=== PATIENT | female | born 1995 | race Caucasian/White ===

== ENCOUNTER 2021-01-03 09:50 | Emergency (ER) | payer MEDICAID, SELFPAY ==
[2021-01-03 09:57] VITALS: BP 117/66; PULSE 92; RESP 14; TEMP 36.9; O2SAT 100
--- NOTE | 2021-01-03 10:45 | ED.URI ---
HPI - URI/Sore Throat General Chief Complaint: Upper Respiratory Infection Stated Complaint: sore throat Source: patient Mode of arrival: ambulatory Limitations: no limitations History of Present Illness HPI Narrative: Patient is a 25-year-old female who presents complaining of sore throat x1 day. She denies fever, cough or congestion. She has not vaccinated Covid at this time. Patient denies known exposure to Covid. She denies taking any [id number] medications prior to arrival. MD elicited complaint: sore throat Related Data Home Medications Medication Instructions Recorded Confirmed No Home Medications 01/03/21 01/03/21 Allergies Allergy/AdvReac Type Severity Reaction Status Date / Time No Known Allergies Allergy Unverified 01/03/21 10:11 Review of Systems Review of Systems: CONSTITUTIONAL: Denies fever, chills, or sweats. EYES: Denies visual changes, redness, or discharge. ENT: Denies rhinorrhea, congestion, or otalgia. Reports sore throat. CARDIOVASCULAR: Denies chest pain, palpitations, or edema. RESPIRATORY: Denies cough or dyspnea. GASTROINTESTINAL: Denies abdominal pain, nausea, vomiting, or diarrhea. GENITOURINARY: Denies dysuria or hematuria. SKIN: Denies rash or itching. MUSCULOSKELETAL: Denies back pain, joint pain, or myalgia. NEUROLOGIC: Denies headache, numbness, dizziness, or weakness. PSYCHIATRIC: Denies anxiety or depression. [facility] Past Medical History Medical History Strep throat Surgical History Surgical History Hx of tonsillectomy Social History Social History (Updated 01/03/21 @ 10:47 by KASH Cody) Smoking status: Never smoker Alcohol intake: never Substance use: never Occupation/Education: occupation Comments At the time of signature, I have reviewed and agree with nursing past medical, surgical, social, and family history unless otherwise noted. Please see nursing chart for further information. There is no relevant family history pertinent to the presenting complaint. Exam Narrative: GENERAL: Well-appearing, well-nourished, and in no acute distress. HEAD: Normocephalic, atraumatic. EYES: EOMI. No redness or drainage. Conjunctiva are normal. ENT: Mucous membranes pink and moist. Nares clear. No rhinorrhea. Throat normal with moderate erythema and edema. Uvula midline. NECK: AROM. Supple. No lymphadenopathy. CHEST: No respiratory distress. HEART: Regular rate and rhythm. EXTREMITIES: Normal range of motion. SKIN: Warm, dry, no rash. NEURO: No focal deficits. Alert and oriented x3. Gait steady. PSYCH: Normal affect. No signs of depression or anxiety. Course Vital Signs Vital signs: Vital Signs Temperature 36.9 C 01/03/21 09:57 Pulse Rate 92 01/03/21 09:57 Respiratory Rate 14 01/03/21 09:57 Blood Pressure 117/66 01/03/21 09:57 Pulse Oximetry 100 01/03/21 09:57 Temperature 36.9 C 01/03/21 09:57 Pulse Rate 92 01/03/21 09:57 Respiratory Rate 14 01/03/21 09:57 Blood Pressure 117/66 01/03/21 09:57 Pulse Oximetry 100 01/03/21 09:57 Reviewed MDM - URI/Sore Throat MDM Narrative Medical decision making narrative: Patient's rapid strep is negative at this time. Covid PCR sent. Patient is aware that she should quarantine until return of results. Patient agrees with plan of care. Patient is stable for discharge to home with outpatient follow-up as discussed. Differential Diagnosis Differential diagnosis: Likely upper respiratory infection, sinusitis, viral infection, pharyngitis and other (Covid) Lab Data Attestation: I reviewed the patient's lab results. Labs: Strep Screen Presumptive Negative *(Reference Range: Negative)* Critical Care Time Critical Care Time Critical Care Time: No Discharge Plan Discharge Clinical Impres
[2021-01-05 18:23] LABS: SARS-CoV-2 RNA PCR Negative
== END 2021-01-03 11:00 | disposition home or self-care (01) ==
PROVIDERS: Emergency Provider Nurse Practitioner
DX: J02.9 Acute pharyngitis, unspecified (principal); Z20.822 Contact with and (suspected) exposure to COVID-19
CPT/HCPCS: 87081; 87880; 99203; C9803; G0463; U0003; U0005

== ENCOUNTER 2021-02-06 11:08 | Emergency (ER) | payer BC, SELFPAY ==
[2021-02-06 11:15] VITALS: BP 119/66; PULSE 93; RESP 16; TEMP 36.5; O2SAT 99
--- NOTE | 2021-02-06 11:19 | ED.URI ---
HPI - URI/Sore Throat General Chief Complaint: Upper Respiratory Infection Stated Complaint: cough congestion ear pain Time Seen by Provider: 02/06/21 11:19 Source: patient and RN notes reviewed History of Present Illness HPI Narrative: Patient is a 25-year-old female who presents the urgent care with complaints of runny nose, slight cough, sore throat and fatigue. Patient states her symptoms started 3 days ago and everyone in the home has been sick . Patient states that no one has been diagnosed with Covid. States that she has not had the Covid vaccine. Patient's main concern was not going to work today . Patient denies of fever, chills, nausea, vomiting, headache. Patient has had normal appetite. Patient has not tested for Covid since her sickness started. No other acute complaints. No acute distress noted. Patient aware of the plan of care. Some parts of this dictation were generated by voice recognition software and may contain typographical and/or grammatical inaccuracies. Related Data Home Medications Medication Instructions Recorded Confirmed etonogestrel [Nexplanon] 1 implant SUBDERMAL ONCE 02/06/21 02/06/21 Allergies Allergy/AdvReac Type Severity Reaction Status Date / Time No Known Allergies Allergy Verified 02/06/21 11:36 Review of Systems Review of Systems: CONSTITUTIONAL: Denies fever, chills, or sweats. EYES: Denies visual changes, redness, or discharge. ENT: Reports of postnasal drainage, congestion, sore throat and rhinorrhea CARDIOVASCULAR: Denies chest pain, palpitations, or edema. RESPIRATORY: Reports a mild cough without dyspnea GASTROINTESTINAL: Denies abdominal pain, nausea, vomiting, or diarrhea. GENITOURINARY: Denies dysuria or hematuria. SKIN: Denies rash or itching. MUSCULOSKELETAL: Denies back pain, joint pain, or myalgia. NEUROLOGIC: Denies headache, numbness, or weakness. All other systems reviewed are negative, except as documented in HPI. [facility] Past Medical History Medical History Strep throat Surgical History Surgical History Hx of tonsillectomy Social History Social History (Updated 01/03/21 @ 10:47 by Latasha M. Keen, [employer]) Smoking status: Never smoker Alcohol intake: never Substance use: never Comments At the time of my signature, I reviewed and agree with the nursing past medical, surgical, social, and family history. There is no relevant family history pertinent to the patient complaint. Exam Narrative: GENERAL: This is a well-nourished, well-developed patient, in no apparent distress. HEAD: normocephalic, atraumatic. EYES: PERRL. Sclera clear/white. Vision is grossly intact. EARS: External ears normal, auditory canals clear and without drainage, TMs normal without perforation. Hearing grossly intact. NOSE: External nose normal with no obvious nasal discharge, nares without redness, clear to yellow rhinorrhea. THROAT: Mucous membranes moist. Mild erythema to posterior pharynx with moderate postnasal drainage NECK: Neck supple CARDIOVASCULAR: Regular rate and rhythm without murmurs, gallops, or rubs. RESPIRATORY: Clear to auscultation. Breath sounds equal bilaterally. No wheezes, rales, or rhonchi. SKIN: warm, intact with no suspicious lesions or rash, good texture and turgor. NEURO: awake, alert, and oriented to person, place and time. There were no obvious focal neurologic abnormalities. EXTREMITIES: No clubbing, cyanosis, or edema. Course Vital Signs Vital signs: Vital Signs Temperature 97.7 F 02/06/21 11:15 Pulse Rate 93 02/06/21 11:15 Respiratory Rate 16 02/06/21 11:15 Blood Pressure 119/66 02/06/21 11:15 Pulse Oximetry 99 02/06/21 11:15 Temperature 97.7 F 02/06/21 11:15 Pulse Rate 93 02/06/21 11:15 Respiratory Rate 16 02/06/21 11:15 Blood Pressure 119/66 02/06/21 11:15 Pulse Oximetry 99 02/06/21
== END 2021-02-06 11:43 | disposition home or self-care (01) ==
PROVIDERS: Emergency Provider Nurse Practitioner Family
DX: J06.9 Acute upper respiratory infection, unspecified (principal)
CPT/HCPCS: 87081; 87804; 87880; 99213; G0463

== ENCOUNTER 2021-05-27 15:28 | Emergency (ER) | payer BC, SELFPAY ==
[2021-05-27 15:33] VITALS: BP 117/66; PULSE 78; RESP 20; TEMP 36.9; O2SAT 100
--- NOTE | 2021-05-27 16:03 | ED.URI ---
HPI - URI/Sore Throat General Chief Complaint: Upper Respiratory Infection Stated Complaint: Cough/Congestion Time Seen by Provider: 05/27/21 15:53 Source: patient and RN notes reviewed Mode of arrival: ambulatory Limitations: no limitations History of Present Illness HPI Narrative: Patient presents today complaint of a 2-week history of nonproductive cough, worse over the last 2 days. Patient reports very occasional clear sputum. Your reports some chest congestion as well, but denies any additional symptoms. Denies any sick contacts. She has been taking Mucinex and DayQuil without relief. MD elicited complaint: cough Related Data Home Medications Medication Instructions Recorded Confirmed etonogestrel [Nexplanon] 1 implant SUBDERMAL ONCE 02/06/21 05/27/21 Allergies Allergy/AdvReac Type Severity Reaction Status Date / Time No Known Allergies Allergy Verified 05/27/21 15:32 Review of Systems Review of Systems: CONSTITUTIONAL: Denies body aches, fever, chills, or sweats. EYES: Denies visual changes, redness, or discharge. ENT: Denies rhinorrhea, congestion, sore throat, or otalgia. CARDIOVASCULAR: Denies chest pain, palpitations, or edema. RESPIRATORY: Denies dyspnea.+ Cough, chest congestion GASTROINTESTINAL: Denies abdominal pain, nausea, vomiting, or diarrhea. GENITOURINARY: Denies dysuria or hematuria. SKIN: Denies rash, itching, or wounds. MUSCULOSKELETAL: Denies back pain, joint pain, or myalgia. NEUROLOGIC: Denies headache, numbness, tingling, or weakness. PSYCH: Denies depression or anxiety. [facility] Past Medical History Medical History Strep throat Surgical History Surgical History Hx of tonsillectomy Social History Social History Smoking status: Never smoker Alcohol intake: never Substance use: never Comments At time of signature, I have reviewed and agree with nursing past medical, surgical, social and family history unless otherwise noted. Please see nursing chart for further information. There is no relevant family history pertinent to the presenting complaint Exam Narrative: GENERAL: Well-appearing, well-nourished, and in no acute distress. HEAD: Normocephalic, atraumatic. EYES: EOMI. No redness or drainage. Conjunctivae normal. ENT: Mucous membranes pink and moist. Nares clear. No rhinorrhea. TMs normal bilaterally. Throat normal. Uvula midline. NECK: Normal AROM. Supple. No lymphadenopathy. CHEST: No respiratory distress. Clear to auscultation. HEART: Regular rate and rhythm. No murmur appreciated. Normal peripheral pulses. EXTREMITIES: Normal range of motion. No edema. SKIN: Warm, dry, no rash. Capillary refill normal. Normal skin turgor. NEURO: No focal deficits. Alert and oriented x3. Gait steady. PSYCH: Normal affect. No signs of depression or anxiety. Course Course Level of Care: Express Care Visit Vital Signs Vital signs: Vital Signs Temperature 98.5 F 05/27/21 15:33 Pulse Rate 78 05/27/21 15:33 Respiratory Rate 20 05/27/21 15:33 Blood Pressure 117/66 05/27/21 15:33 Pulse Oximetry 100 05/27/21 15:33 Temperature 98.5 F 05/27/21 15:33 Pulse Rate 78 05/27/21 15:33 Respiratory Rate 20 05/27/21 15:33 Blood Pressure 117/66 05/27/21 15:33 Pulse Oximetry 100 05/27/21 15:33 Reviewed MDM - URI/Sore Throat Differential Diagnosis Differential diagnosis: Likely upper respiratory infection, viral infection, bronchitis and other (Pneumonia) Critical Care Time Critical Care Time Critical Care Time: No Discharge Plan Discharge Clinical Impression: Bronchitis Patient Disposition: Home, Self-Care Condition: Stable Instructions: Acute Bronchitis (ED) Additional Instructions: Please take all medications as prescribed. Do not drive with
== END 2021-05-27 16:10 | disposition home or self-care (01) ==
PROVIDERS: Emergency Provider Nurse Practitioner
DX: J40 Bronchitis, not specified as acute or chronic (principal)
CPT/HCPCS: 99213; G0463

== ENCOUNTER 2021-11-23 09:01 | Emergency (ER) | payer BC, SELFPAY ==
[2021-11-23 09:06] VITALS: BP 106/71; PULSE 72; RESP 20; TEMP 36.7; O2SAT 99
--- NOTE | 2021-11-23 09:34 | ED.URI ---
HPI - URI/Sore Throat General Chief Complaint: Upper Respiratory Infection Stated Complaint: Sore Throat Time Seen by Provider: 11/23/21 09:35 History of Present Illness HPI Narrative: 26-year-old female presented for complaint of sore throat for 4 days. Endorses post nasal drainage and throat pain on the left side. Also endorses a left ear has been draining. She denies decreased hearing, tinnitus, headache, nausea, vomiting, fevers or chills. She endorses she lives with her aunt who has been ill for a few days. She has not taken anything for symptoms. Related Data Allergies Allergy/AdvReac Type Severity Reaction Status Date / Time No Known Allergies Allergy Verified 11/23/21 09:23 Review of Systems Review of Systems: CONSTITUTIONAL: Denies body aches, fever, chills, or sweats. EYES: Denies visual changes, redness, or discharge. ENT: reports rhinorrhea, congestion, sore throat, ear draining CARDIOVASCULAR: Denies chest pain, palpitations, or edema. RESPIRATORY: Denies dyspnea. GASTROINTESTINAL: Denies abdominal pain, nausea, vomiting, or diarrhea. SKIN: Denies rash, itching, or wounds. MUSCULOSKELETAL: Denies back pain, joint pain, or myalgia. NEUROLOGIC: Denies headache [facility] Past Medical History Medical History Strep throat Surgical History Surgical History Hx of tonsillectomy Social History Social History Smoking status: Never smoker Alcohol intake: never Substance use: never Exam Narrative: GENERAL: well-appearing, no acute distress. EYES: conjunctivae clear ENT: Mucous membranes moist. TM pearly burton with normal light reflex bilaterally; no tragal tenderness. Oropharynx erythematous without lesions. No drooling, no hoarseness, no trismus, uvula midline. No tripod positioning, hot potato voice, or soft palate swelling. NECK: Supple. No lymphadenopathy CHEST: Clear to auscultation, breath sounds equal. HEART: Regular rate and rhythm. No murmur heard. SKIN: Warm, dry, no rash. NEURO: Alert and oriented x3. Course Course Emergency Course: Patient is aware of diagnosis, understands and agrees to treatment plan. Anticipatory guidance given. Patient agrees to follow-up as directed and is aware of reasons to seek care at the emergency department. Portions of this record may have been created with voice recognition software Level of Care: Express Care Visit Vital Signs Vital signs: Vital Signs Temperature 98.1 F 11/23/21 09:06 Pulse Rate 72 11/23/21 09:06 Respiratory Rate 20 11/23/21 09:06 Blood Pressure 106/71 11/23/21 09:06 Pulse Oximetry 99 11/23/21 09:06 Oxygen Delivery Room Air 11/23/21 09:06 Temperature 98.1 F 11/23/21 09:06 Pulse Rate 72 11/23/21 09:06 Respiratory Rate 20 11/23/21 09:06 Blood Pressure 106/71 11/23/21 09:06 Pulse Oximetry 99 11/23/21 09:06 Oxygen Delivery Room Air 11/23/21 09:06 MDM - URI/Sore Throat MDM Narrative Medical decision making narrative: strep result reviewed with pt. Advise supportive treatments. Patient is appropriate for outpatient treatment and follow-up. Differential Diagnosis Differential diagnosis: Likely upper respiratory infection, viral infection and pharyngitis Lab Data Labs: Strep Screen Presumptive Negative *(Reference Range: Negative)* Strep Screen Presumptive Negative *(Reference Range: Negative)* Discharge Plan Discharge Clinical Impression: Pharyngitis Patient Disposition: Home, Self-Care Condition: Stable Instructions: Allergic Rhinitis (ED) Additional Instructions: Rapid strep swab was negative today You will be notified in a few days if the culture comes back positive for strep, a
== END 2021-11-23 09:45 | disposition home or self-care (01) ==
PROVIDERS: Emergency Provider Nurse Practitioner Family
DX: J02.9 Acute pharyngitis, unspecified (principal)
CPT/HCPCS: 87081; 87880; 99213; G0463

== ENCOUNTER 2022-01-21 11:14 | Emergency (ER) | payer OTHER, SELFPAY ==
[2022-01-21 11:21] VITALS: BP 127/65; PULSE 79; RESP 16; TEMP 36.5; O2SAT 99
--- NOTE | 2022-01-21 11:25 | ED.URI ---
HPI - URI/Sore Throat General Chief Complaint: Ear Stated Complaint: Sore Throat/Ear Pain Time Seen by Provider: 01/21/22 11:26 Source: patient and RN notes reviewed History of Present Illness HPI Narrative: patient is a 26-year-old female who presents to the Urgent Care with complaints of scratchy throat, bilateral ear pain and nasal drainage. Patient has been taking Mucinex for 2 days without much relief. Patient was seen approximately 1 month ago and states that she did not take the Zyrtec. Denies any fevers, nausea or vomiting. No other acute complaints. No acute distress noted. Patient aware of the plan of care. Some parts of this dictation were generated by voice recognition software and may contain typographical and/or grammatical inaccuracies. Related Data Allergies Allergy/AdvReac Type Severity Reaction Status Date / Time No Known Allergies Allergy Verified 11/23/21 09:23 Review of Systems Review of Systems: CONSTITUTIONAL: Denies fever, chills, or sweats. EYES: Denies visual changes, redness, or discharge. ENT: Reports a scratchy throat, nasal drainage in bilateral otalgia CARDIOVASCULAR: Denies chest pain, palpitations, or edema. RESPIRATORY: Denies cough or dyspnea. GASTROINTESTINAL: Denies abdominal pain, nausea, vomiting, or diarrhea. GENITOURINARY: Denies dysuria or hematuria. SKIN: Denies rash or itching. MUSCULOSKELETAL: Denies back pain, joint pain, or myalgia. NEUROLOGIC: Denies headache, numbness, or weakness. All other systems reviewed are negative, except as documented in HPI. [facility] Past Medical History Medical History Strep throat Surgical History Surgical History Hx of tonsillectomy Social History Social History Smoking status: Never smoker Alcohol intake: never Substance use: never Comments At the time of my signature, I reviewed and agree with the nursing past medical, surgical, social, and family history. There is no relevant family history pertinent to the patient complaint. Exam Narrative: GENERAL: This is a well-nourished, well-developed patient, in no apparent distress. HEAD: normocephalic, atraumatic. EYES: PERRL. Sclera clear/white. Vision is grossly intact. EARS: External ears normal, auditory canals clear and without drainage, TMs normal without perforation. Hearing grossly intact. NOSE: External nose normal with no obvious nasal discharge, nares without redness, clear rhinorrhea. THROAT: Mucous membranes moist, posterior pharynx clear. mild postnasal drainage NECK: Neck supple, non-tender without lymphadenopathy CARDIOVASCULAR: Regular rate and rhythm without murmurs, gallops, or rubs. RESPIRATORY: Clear to auscultation. Breath sounds equal bilaterally. No wheezes, rales, or rhonchi. SKIN: warm, intact with no suspicious lesions or rash, good texture and turgor. NEURO: awake, alert, and oriented to person, place and time. There were no obvious focal neurologic abnormalities. EXTREMITIES: No clubbing, cyanosis, or edema. Course Course Level of Care: Express Care Visit Vital Signs Vital signs: Vital Signs Temperature 97.7 F 01/21/22 11:21 Pulse Rate 79 01/21/22 11:21 Respiratory Rate 16 01/21/22 11:21 Blood Pressure 127/65 01/21/22 11:21 Pulse Oximetry 99 01/21/22 11:21 Oxygen Delivery Room Air 01/21/22 11:21 Temperature 97.7 F 01/21/22 11:21 Pulse Rate 79 01/21/22 11:21 Respiratory Rate 16 01/21/22 11:21 Blood Pressure 127/65 01/21/22 11:21 Pulse Oximetry 99 01/21/22 11:21 Oxygen Delivery Room Air 01/21/22 11:21 reviewed MDM - URI/Sore Throat MDM Narrative Medical decision making narrative: advised patient to take a daily antihistamine such as Zyrtec. Use Flonase and Benadryl prior to bedtime. Use a humidifier at bedtime. Increase wa
== END 2022-01-21 11:54 | disposition home or self-care (01) ==
PROVIDERS: Emergency Provider Nurse Practitioner Family
DX: H92.03 Otalgia, bilateral (principal)
CPT/HCPCS: 99213; G0463

== ENCOUNTER 2022-07-08 15:26 | Emergency (ER) | payer OTHER, SELFPAY ==
[2022-07-08 15:30] VITALS: BP 130/78; PULSE 102; RESP 16; TEMP 36.6; O2SAT 99
--- NOTE | 2022-07-08 15:35 | ED.URI ---
HPI - URI/Sore Throat General Chief Complaint: Upper Respiratory Infection Stated Complaint: Shortness of Breath Time Seen by Provider: 07/08/22 15:30 Source: patient History of Present Illness HPI Narrative: Patient is a 26-year-old female presents to urgent care with complaints of nasal congestion, body aches and cough. Patient states that she has a history of bronchitis. She has been using Benadryl and congestion medication for the last 2 days. Denies any fever, nausea or vomiting. No other acute complaints. No acute distress noted. Patient aware of the plan of care. Some parts of this dictation were generated by voice recognition software and may contain typographical and/or grammatical inaccuracies. Related Data Allergies Allergy/AdvReac Type Severity Reaction Status Date / Time No Known Allergies Allergy Verified 07/08/22 15:33 Review of Systems Review of Systems: CONSTITUTIONAL: Denies fever, chills, or sweats. EYES: Denies visual changes, redness, or discharge. ENT: Reports postnasal drainage, nasal congestion CARDIOVASCULAR: Denies chest pain, palpitations, or edema. RESPIRATORY: Reports of cough GASTROINTESTINAL: Denies abdominal pain, nausea, vomiting, or diarrhea. GENITOURINARY: Denies dysuria or hematuria. SKIN: Denies rash or itching. MUSCULOSKELETAL: Denies back pain, joint pain. Reports body aches NEUROLOGIC: Denies headache, numbness, or weakness. All other systems reviewed are negative, except as documented in HPI. [facility] Past Medical History Medical History Strep throat Surgical History Surgical History Hx of tonsillectomy Social History Social History Smoking status: Never smoker Alcohol intake: never Substance use: never Occupation/Education: occupation Comments At the time of my signature, I reviewed and agree with the nursing past medical, surgical, social, and family history. There is no relevant family history pertinent to the patient complaint. Exam Narrative: GENERAL: This is a well-nourished, well-developed patient, in no apparent distress. HEAD: normocephalic, atraumatic. EYES: PERRL. Sclera clear/white. Vision is grossly intact. EARS: External ears normal, auditory canals clear and without drainage, TMs normal without perforation. Hearing grossly intact. NOSE: External nose normal with no obvious nasal discharge, nares without redness, clear rhinorrhea. THROAT: Mucous membranes moist, posterior pharynx clear. Postnasal drainage NECK: Neck supple, non-tender without lymphadenopathy CARDIOVASCULAR: Regular rate and rhythm without murmurs, gallops, or rubs. RESPIRATORY: Clear to auscultation. Breath sounds equal bilaterally. No wheezes, rales, or rhonchi. SKIN: warm, intact with no suspicious lesions or rash, good texture and turgor. NEURO: awake, alert, and oriented to person, place and time. There were no obvious focal neurologic abnormalities. EXTREMITIES: No clubbing, cyanosis, or edema. Course Course Level of Care: Express Care Visit Vital Signs Vital signs: Vital Signs Temperature 97.8 F 07/08/22 15:30 Pulse Rate 102 H 07/08/22 15:30 Respiratory Rate 16 07/08/22 15:30 Blood Pressure 130/78 07/08/22 15:30 Pulse Oximetry 99 07/08/22 15:30 Oxygen Delivery Room Air 07/08/22 15:30 Temperature 97.8 F 07/08/22 15:30 Pulse Rate 102 H 07/08/22 15:30 Respiratory Rate 16 07/08/22 15:30 Blood Pressure 130/78 07/08/22 15:30 Pulse Oximetry 99 07/08/22 15:30 Oxygen Delivery Room Air 07/08/22 15:30 Reviewed MDM - URI/Sore Throat MDM Narrative Medical decision making narrative: Advised patient to continue [id number] allergy medication in conjunction with Mucinex and a prescription steroid. Be sure to eat and drink with medication. Do not sl
== END 2022-07-08 16:07 | disposition home or self-care (01) ==
PROVIDERS: Emergency Provider Nurse Practitioner Family; PCP Family Medicine
DX: J06.9 Acute upper respiratory infection, unspecified (principal)
CPT/HCPCS: 99213; G0463

== ENCOUNTER 2022-10-18 12:40 | Emergency (ER) | payer OTHER, SELFPAY ==
--- NOTE | 2022-10-18 12:45 | ED.URI ---
HPI - URI/Sore Throat General Chief Complaint: Upper Respiratory Infection Stated Complaint: Congestion/Cough Source: patient and RN notes reviewed History of Present Illness HPI Narrative: 27-year-old female presents to urgent care with daughter at side. Patient states she has had a cough and congestion for 4 days. Denies any fevers, chills, chest pain, shortness of breath, vomiting, or diarrhea. Denies any sore throat or ear pain. Patient has taken an allergy pill at home. Related Data Home Medications Medication Instructions Recorded Confirmed norgestimate 0.25 mg-ethinyl 1 tablet PO DAILY 10/18/22 10/18/22 estradiol 35 mcg tablet (Estarylla) Allergies Allergy/AdvReac Type Severity Reaction Status Date / Time No Known Allergies Allergy Verified 07/08/22 15:33 Review of Systems Review of Systems: Pertinent positives and pertinent negatives per HPI. [facility] Past Medical History Medical History Strep throat Surgical History Surgical History Hx of tonsillectomy Social History Social History Smoking status: Never smoker Alcohol intake: never Substance use: never Occupation/Education: occupation Comments At the time of my signature, I reviewed and agree with the nursing past medical, surgical, social, and family history. There is no relevant family history pertinent to the patient complaint. Exam Narrative: GENERAL: This is a well-nourished, well-developed patient, in no apparent distress. HEAD: normocephalic, atraumatic. EYES: Sclera clear/white. Vision is grossly intact. EARS: External ears normal, auditory canals clear and without drainage. Hearing grossly intact. NOSE: External nose normal with no obvious nasal discharge, nares without redness, no rhinorrhea. THROAT: Mucous membranes moist, posterior pharynx clear. NECK: Neck supple, non-tender without lymphadenopathy, masses or thyromegaly. CARDIOVASCULAR: Regular rate and rhythm without murmurs, gallops, or rubs. RESPIRATORY: Clear to auscultation. Breath sounds equal bilaterally. No wheezes, rales, or rhonchi. GASTROINTESTINAL: Abdomen soft, non-tender, nondistended. Bowel sounds are active. No hepato-splenomegaly, or palpable masses. No guarding. SKIN: warm, intact with no suspicious lesions or rash, good texture and turgor. NEURO: awake, alert, and oriented to person, place and time. There were no obvious focal neurologic abnormalities. EXTREMITIES: No clubbing, cyanosis, or edema. No joint tenderness, effusion, or edema noted. BACK: Nontender without deformity or crepitus. No flank tenderness. Course Course Level of Care: Express Care Visit Vital Signs Vital signs: Vital Signs Temperature 97.7 F 10/18/22 12:46 Pulse Rate 81 10/18/22 12:46 Respiratory Rate 16 10/18/22 12:46 Blood Pressure 114/65 10/18/22 12:46 Pulse Oximetry 99 10/18/22 12:46 Oxygen Delivery Room Air 10/18/22 12:46 Temperature 97.7 F 10/18/22 12:46 Pulse Rate 81 10/18/22 12:46 Respiratory Rate 16 10/18/22 12:46 Blood Pressure 114/65 10/18/22 12:46 Pulse Oximetry 99 10/18/22 12:46 Oxygen Delivery Room Air 10/18/22 12:46 Reviewed MDM - URI/Sore Throat MDM Narrative Medical decision making narrative: Viral illness may last between 7-12days; antibiotic is NOT recommended at this time. Recommend antihistamine such as Benadryl at night time and Claritin/Zyrtec/Rochelle during the day. Increase your Vitamin C intake. Warm baths are comforting for children. Steam from hot showers help with congestion. Cough syrup may cause drowsiness; avoid driving or take it at night time. Suction nose frequently if child is congested. May use saline nasal spray before suctioning to help with results. Use inhaler as needed for cough, wheezing, shortness o
[2022-10-18 12:46] VITALS: BP 114/65; PULSE 81; RESP 16; TEMP 36.5; O2SAT 99
== END 2022-10-18 13:05 | disposition home or self-care (01) ==
PROVIDERS: Emergency Provider Nurse Practitioner Family; PCP Family Medicine
DX: J06.9 Acute upper respiratory infection, unspecified (principal)
CPT/HCPCS: 99213; G0463

== ENCOUNTER 2023-04-06 11:56 | Emergency (ER) | payer OTHER, SELFPAY ==
[2023-04-06 12:05] VITALS: BP 126/62; PULSE 75; RESP 16; TEMP 36.7; O2SAT 100
--- NOTE | 2023-04-06 12:45 | ED.GENADULT ---
HPI - General Adult General Chief complaint: Upper Respiratory Infection Stated complaint: cough Source: patient, RN notes reviewed and old records reviewed Mode of arrival: ambulatory Limitations: no limitations History of Present Illness HPI narrative: 27-year-old female presents to [facility] with complaints of cough, congestion that started 2 weeks ago. Patient states cough is getting worse. Patient states she is having shortness of breath at night. Patient taking [id number] medications with no relief. Patient denies chest pain, dizziness, weakness. Related Data Home Medications Medication Instructions Recorded Confirmed norgestimate 0.25 mg-ethinyl 1 tablet PO DAILY 10/18/22 10/18/22 estradiol 35 mcg tablet (Estarylla) Allergies Allergy/AdvReac Type Severity Reaction Status Date / Time No Known Allergies Allergy Verified 04/06/23 12:40 Review of Systems Constitutional: Constitutional: Reports no additional constitutional complaints, Denies body ache(s), Denies chills, Denies fatigue, Denies fever(s) and Denies headache(s) Eyes: Eyes: Reports no additional eye complaints and Denies blurry vision ENT: Reports system reviewed and no additional complaints, except as documented, Denies vertigo, Denies dizziness, Denies ear discharge, Denies otalgia, Denies facial pain, Denies headache(s), Reports nasal congestion, Denies nasal discharge, Denies sinus pain, Denies sinus pressure and Denies sore throat Cardiovascular: Cardiovascular: Reports no additional cardiovascular complaints, Denies chest pain, Denies chest pain at rest, Denies rapid heart rate and Denies dyspnea Respiratory: Respiratory: Reports no additional respiratory complaints, Reports chest congestion, Reports cough, Denies pain on inspiration, Denies pain with cough and Reports dyspnea Gastrointestinal: Gastrointestinal: Denies abdominal pain, Denies diarrhea, Denies nausea and Denies vomiting Integumentary/Breasts: Skin/Breast: Denies rash Neurologic: Reports system reviewed and no additional complaints, except as documented, Denies vertigo, Denies dizziness and Denies headache(s) Endocrine: Endocrine: Denies fatigue PMFSH Past Medical History Medical History Strep throat Surgical History Surgical History Hx of tonsillectomy Social History Social History Smoking status: Never smoker Alcohol intake: never Substance use: never Occupation/Education: occupation Comments At the time of my signature, I reviewed and agree with the nursing past medical, surgical, social, and family history. There is no relevant family history pertinent to the patient complaint. Exam Const: General: cooperative, healthy appearing, no acute distress and well nourished Nutritional Appearance: well nourished Orientation/consciousness: patient oriented x3 Limitations: no limitations HENMT: Head: normal to inspection and normocephalic Ears: external ears normal, TM's normal bilaterally, mastoids normal and Abnormal EAC present Face/Nose/Sinus: normal facial exam Face and sinus: normal facial exam Mouth: Yes Normal oral and palatal mucosa present, Yes oropharynx normal and Yes moist mucous membranes Throat: posterior oropharynx normal, tonsils normal, uvula midline and no uvular edema Eyes: General: appearance normal, both eyes and all related structures Sclera: sclerae normal Pupils: Equal, round and reactive pupils present Resp: Effort & Inspection: normal respiratory effort, able to speak in complete sentences, no audible wheezes, no cough, no respiratory distress and no retractions Auscultation: clear to auscultation bilaterally, no crackles, no rales, no rhonchi and no wheezes Cardio: Rate: regular rate Rhythm: regular rhythm Skin: General skin exam: normal color and no
== END 2023-04-06 12:50 | disposition home or self-care (01) ==
PROVIDERS: Emergency Provider Registered Nurse; PCP Family Medicine
DX: J20.9 Acute bronchitis, unspecified (principal)
CPT/HCPCS: 99213; G0463

== ENCOUNTER 2023-07-21 13:56 | Emergency (ER) | payer OTHER, SELFPAY ==
[2023-07-21 14:03] VITALS: BP 122/57; PULSE 67; RESP 16; TEMP 36.4; O2SAT 99
--- NOTE | 2023-07-21 14:49 | ED.URI ---
HPI - URI/Sore Throat General Chief Complaint: Upper Respiratory Infection Stated Complaint: Ear Pain/Fatigue/Headache Time Seen by Provider: 07/21/23 14:50 Source: patient, RN notes reviewed and old records reviewed Mode of arrival: ambulatory Limitations: no limitations History of Present Illness HPI Narrative: 27-year-old female to Express Care with complaint fatigue, throat pain, bilateral ear pain for 1 week. Patient denies allergies, fever, allergies, pertinent medical history. Patient has attempted to treat at home with [id number] medications with mild relief. Patient able to tolerate fluids by mouth. Respirations even and nonlabored. Patient in no acute distress. Related Data Home Medications Medication Instructions Recorded Confirmed norgestimate 0.25 mg-ethinyl 1 tablet PO DAILY 10/18/22 04/06/23 estradiol 35 mcg tablet (Estarylla) Allergies Allergy/AdvReac Type Severity Reaction Status Date / Time No Known Allergies Allergy Verified 07/21/23 14:02 Review of Systems Review of Systems: All systems reviewed & are unremarkable except as noted in HPI and below Constitutional: Constitutional: Reports as per HPI and Reports fatigue Eyes: Eyes: Reports no additional eye complaints ENT: Reports as per HPI, Reports otalgia and Reports sore throat Cardiovascular: Cardiovascular: Reports no additional cardiovascular complaints, Denies chest pain and Denies dyspnea Respiratory: Respiratory: Reports no additional respiratory complaints, Denies cough and Denies dyspnea Musculoskeletal: Musculoskeletal: Reports no additional musculoskeletal complaints Neurologic: Reports system reviewed and no additional complaints, except as documented Psychiatric: Psychiatric: Reports no additional psychiatric complaints PMFSH Past Medical History Medical History Strep throat Surgical History Surgical History Hx of tonsillectomy Social History Social History Smoking status: Never smoker Alcohol intake: never Substance use: never Occupation/Education: occupation Comments At the time of my signature, I reviewed and agree with the nursing past medical, surgical, social, and family history. There is no relevant family history pertinent to the patient complaint. Exam Const: General: cooperative, no acute distress, alert, tired appearing, uncomfortable and well nourished Nutritional Appearance: well nourished Orientation/consciousness: patient oriented x3 Limitations: no limitations HENMT: Head: normal to inspection Ears: external ears normal and TM abnormal bulging on the left, dull on the left and erythematous on the left Face/Nose/Sinus: Normal external nose present, Normal nares present, normal facial exam, No erythema and No edema Face and sinus: normal facial exam, no erythema and no edema Mouth: Yes Normal oral and palatal mucosa present Throat: posterior oropharynx abnormal erythema and postnasal drainage Eyes: General: appearance normal, both eyes and all related structures Neck: Neck: normal visual inspection, full ROM and no meningeal signs Lymphatic: no lymphadenopathy noted and no lymphedema noted Chest: Chest palpation & inspection: normal inspection of the chest Resp: Effort & Inspection: normal respiratory effort and able to speak in complete sentences Auscultation: clear to auscultation bilaterally Cardio: Jugular venous distension: no JVD Rate: regular rate Rhythm: regular rhythm Back/Spine/Pelvis: Cervical Spine: cervical ROM normal Skin: General skin exam: normal color, no rashes or lesions noted and turgor normal Neuro: General: patient oriented x3, gait normal, moves all extremities and no meningeal signs Speech: normal speech Gait exam (Neuro): Normal gait present Extrem: General: no
== END 2023-07-21 15:20 | disposition home or self-care (01) ==
PROVIDERS: Emergency Provider Nurse Practitioner Family; PCP Nurse Practitioner Family
DX: H66.92 Otitis media, unspecified, left ear (principal)
CPT/HCPCS: 99213; G0463

== ENCOUNTER 2024-03-27 12:01 | Emergency (ER) | payer OTHER, SELFPAY ==
[2024-03-27 12:16] VITALS: BP 112/58; PULSE 82; RESP 20; TEMP 36.6; O2SAT 100
--- OUTSIDE RECORDS SUMMARY | 2024-03-27 12:16 | XMS_ITS | Referral Summary ---
Author Organization [facility] Address [address] [place] [address] Care Team Providers Care Moisture Tester Name Role Phone Suzan Caldwell PT Unavailable Unavailable Erwin, Loli Andrade DRAFTING CLERK Primary Care Provider Encounters Date Type Department Care Team Description 03/22/2024 Telephone [facility] [address] [place] [address] Gabriela Murcia MD Referral Request 12/27/2023 Telephone [facility] [address] [place] [address] Gabriela Murcia MD std testing from Last 3 Months Allergies No known active allergies Medications selenium sulfide 2.5 % lotion Apply to affected areas and leave on for 10 minutes then wash off. Do this daily for 1 week, then as needed. 120 mL 2 04/06/19 23 Active hydrOXYzine (VISTARIL) 25 mg capsule Take 1 capsule (25 mg total) by mouth daily as needed for anxiety 30 capsule 10/29/19 23 Active Additional Information Patient not taking.Reported on 08/12/2023 polyethylene glycol (MIRALAX) 17 gram/dose bulk powder Take 1 capful daily as needed for constipation management. 595 g 1 11/02/19 23 Active Additional Information Patient not taking.Reported on 08/12/2023 senna-docusate (PERICOLACE) 8.6-50 mg Take 1-2 tablets daily as needed for chronic constipation management. 180 tablet 3 11/02/19 23 Active Additional Information Patient not taking.Reported on 08/12/2023 hydrocortisone (ANUSOL-HC) 2.5 % rectal cream For hemorrhoid management, squeeze small amount into rectum using internal applicator and also apply small amount externally to rectum up to twice daily as needed. 28 g 5 11/02/19 23 Active Additional Information Patient not taking.Reported on 08/12/2023 norgestimate-ethi nyl estradioL (ORTHO-CYCLEN) 0.25-35 mg-mcg per tabletIndications :Oral contraceptive pill surveillance Take 1 tablet by mouth daily 84 tablet 4 08/12/19 24 Active Active Problems Problem Noted Date Diagnosed Date Lymphadenopathy, submental 03/31/2023 Assessment & Plan (03/31/2023 4:31 PM FRUIT GRADER): Noticed approx 10 days ago, see HPI for details. Afebrile no acute signs of infection. No acute findings on exam. Will order US to r/o cancer or other structural changes. Advised it will most likely resolve on it's own. Tylenol/Ibuprofen as needed. Heat/ice might help also. Continue zyrtec. Mass of jaw 03/31/2023 Assessment & Plan (03/31/2023 4:32 PM FRUIT GRADER): Noticed approx 10 days ago, see HPI for details. Afebrile no acute signs of infection. No acute findings on exam. Will order US to r/o cancer or other structural changes. Advised it will most likely resolve on it's own. Tylenol/Ibuprofen as needed. Heat/ice might help also. Continue zyrtec. BRBPR (bright red blood per rectum) 11/01/2022 Alternating constipation and diarrhea 11/01/2022 Blood in stool 10/28/2022 Assessment & Plan (10/28/2022 5:00 PM CDT): Recurrent BRBPR. Ddx: Hemorrhoid versus malignancy -refer to GI for anoscopy Overweight (BMI 25.0-29.9) 08/19/2022 Assessment & Plan (08/19/2022 4:58 PM CDT): Doing well. BMI: 29.5 (Overweight) Dietary and exercise recommendations given today. Recommend exercise at least 30 minutes moderate to vigorous exercise and some strength training most days of the week. (minimum 150 minutes weekly) Discussed MyPlate recommendations and increasing fruits and vegetables -dietary limitations for the next month: Water only to drink and no fried or fatty foods -trial of phentermine 50 mg daily. Risks/benefits and alternatives discussed. Follow-up 1 month Anxiety 05/18/2022 Assessment & Plan (10/28/2022 5:02 PM CDT): Chronic. MARGARET 7 score 8. Mild anxiety. - hydroxyzine 25 mg daily as needed for increased anxiety/panic. Risks/benefits and alternatives discussed - Consider starting counseling. Can use [employer] to find a counselor. Telehealth follow-up 6 weeks Assessment & Plan (08/19/2022 4:56 PM CDT): Chronic. MARGARET 7 not performed today. Dicussed treatment options. Rec Daily multivitamin. Can try camomile. Patient advised can also research [place] Le[place] Wort. Also consider starting counseling. Can use [employer] to find a counselor. Follow-up as needed Assessment & Plan (05/18/2022 5:31 PM CDT): Chronic. MARGARET 7 not performed today. Dicussed treatment options. Monitor headache, Rec Daily multivitamin. Can try camomile. Patient advised can also research [place] Lees Wort. If symptoms ongoing or worsen schedule eval. F/u 3 months or sooner prn Tinea versicolor 04/06/2022 Assessment & Plan (05/18/2022 5:27 PM CDT): Chronic and improved.Continue selenium sulfide daily x1 week then 1 week off prn. Monitor symptoms. Follow-up 3 months if discoloration ongoing. Refer to Dermatology at that time or earlier if patient requests Assessment & Plan (04/06/2022 3:40 PM FRUIT GRADER): Chronic. Recommend selenium sulfide daily x1 week then as needed. Monitor symptoms. Follow-up telehealth in 6 weeks if symptom ongoing will refer to Dermatology Upper back pain 04/06/2022 Assessment & Plan (08/19/2022 4:57 PM CDT): Chronic without radiation. No red flag symptoms. Plain film of cervical and thoracic spine was normal DDx:muscle weakness (functional back pain) vs mild OA - Tylenol 500-1000mg q6h or Ibuprofen 800mg q8h prn pain. Counseled on risk of liver and/or kidney injury with prolonged use of medication. - Ice/Heat to affected area prn - Continue physical therapy - will place new referral to plastic surgery for evaluation for breast reduction -will work on weight loss Assessment & Plan (05/18/2022 5:28 PM CDT): Chronic without radiation. No red flag symptoms. DDx:muscle weakness (functional back pain) vs mild OA - Tylenol 500-1000mg q6h or Ibuprofen 800mg q8h prn pain. Counseled on risk of liver and/or kidney injury with prolonged use of medication. - Ice/Heat to affected area prn - Continue physical therapy - Plain films c spine - Refer to plastic surgery for evaluation for breast reduction Assessment & Plan (04/06/2022 3:41 PM FRUIT GRADER): Chronic without radiation. No red flag symptoms. DDx:muscle weakness (functional back pain) vs mild OA - Tylenol 500-1000mg q6h or Ibuprofen 800mg q8h prn pain. Counseled on risk of liver and/or kidney injury with prolonged use of medication. - Ice/Heat to affected area prn - refer to physical therapy for evaluation and treatment - RTC 4-6 weeks for re-evaluation - Consider imaging if not improved in 6 weeks. If normal consider plastic surgery evaluation for breast reduction as this may be contributing to symptoms Routine screening for STI (sexually transmitted infection) 04/06/2022 Assessment & Plan (04/06/2022 3:42 PM FRUIT GRADER): No symptoms. Patient requesting test. Low vitamin D level 04/06/2022 Social History Tobacco Use Types Packs/Day Years Used Date Smoking Tobacco: Never Smokeless Tobacco: Never AUDIT-C Answer Date Recorded Frequency of Alcohol Consumption Not on file 01/28/2023 Q2: How many drinks containi ng alcohol do you have on a typical day when you are drinking? Patient does not drink Frequency of Binge Drinking Not on file 09/2022 PHQ-2 Answer Date Recorded PHQ-2 Total Score 2 10/28/2022 Personal Safety Answer Date Recorded Have you ever been in or are you currently in a harmful physical or emotional relationship or is someone making you feel afraid or unsafe? Denies 01/28/2023 Comments No Sex and Gender Information Value Date Recorded Sex Assigned at Not on file Legal Sex Female 7:35 PM FRUIT GRADER Gender Identity Not on file Sexual Orientation Not on file Occupation Industry Job Start Date Job End Date N/A Disabled Not on file Not on file Not on file Last Filed Vital Signs Vital Sign Reading Time Taken Comments Blood Pressure 100/70 08/12/2023 1:47 PM CDT Pulse 93 03/31/2023 3:57 PM FRUIT GRADER Temperature 36.5 ??C (97.7 ??F) 03/31/2023 3:57 PM CS T Respiratory Rate 20 03/31/2023 3:57 PM FRUIT GRADER Oxygen Saturation 97% 03/31/2023 3:57 PM FRUIT GRADER Inhaled Oxygen Concentration - - Weight 68.9 kg (152 lb) 08/12/2023 1:47 PM CDT Height 154.9 cm (5' 1 ) 01/28/2023 8:55 AM FRUIT GRADER Body Mass Index 28.72 01/28/2023 8:55 AM FRUIT GRADER Plan of Treatment Not on file Procedures Procedure Name Priority Date/Time Associated Diagnosis Comments HEPATITIS C ANTIBODY Routine 08/12/2023 2:16 PM CDT Screening examination for venereal disease PAP WITH REFLEX TO HIGH RISK HPV Routine 08/05/2022 7:19 AM CDT Screening for malignant neoplasm of the cervix from Last 3 Months or Most Recently Relevant to Health Maintenance Results * Hepatitis C antibody Blood (08/12/2023 2:16 PM CDT) Hep C Ab Nonreactive Nonreactive Comment: Interpretive Data Nonreactive: Antibodies to HCV not detected. Does NOT exclude the possibility of recent exposure to HCV. Equivocal: Equivocal for HCV antibodies. Supplemental molecular testing will be automatically performed to determine infection status in accordance with current CDC screening recommendations. ?? Reactive: Positive for HCV antibodies. ??This may represent current or past HCV infection. Supplemental molecular testing will be automatically performed to determine ??current infection status in accordance with current CDC screening recommendations. Interpretive data was last revised on 2019. Testing performed by: [facility], [address] [place] [address]., [id number] Blood 08/12/2023 2:16 PM CDT 08/12/2023 7:27 PM CDT us Gabriela Murcia MD LAB MICROBIOLOGY - NERAL ORDERABLES Final Result CHARISSA [id number] [facility] Department [place] [address] * Pap with reflex to High Risk HPV (08/05/2022 7:19 AM CDT) Thin prep (Pap test) 08/05/2022 7:19 AM CDT 08/05/2022 7:19 AM CDT Narrative PATHOLOGY CH - 08/10/2022 10:20 AM CDT [facility] Department of Pathology [address] [place] [id number] Final Report Note to Patients: This report may contain a detailed description of human tissue sent by a health care provider to the laboratory for pathologic evaluation. The content of this report is essential for diagnosis and may provide important critical findings. This information may be unfamiliar to patients to review without a medical professional present. It is advised that the patient review this report in the presence of a health care provider who can answer questions and explain the details. Patient Name: ??MARK BARNES Address: ??[address] [facility], ?? [place], [place] [address] Gender: ??F : ??1995 (Age: 26) Service: ?? Location: ?? Hospital #: ??[id number] Patient Type: ?? SPECIMEN Taken: ??08/05/2022 Received: ??08/05/2022 Accessioned:: ??08/06/2022 Reported: ??08/10/2022 Physician(s): MD Gabriela Sher MD Diagnosis: SOURCE OF SPECIMEN ? Imaged Thinprep Pap Test w/ Reflex HPV - [employer] Cytologic Material: STATEMENT OF ADEQUACY ?- Satisfactory for evaluation; endocervical/transformation zone component present ? GENERAL CATEGORIZATION: ?- Negative for intraepithelial lesion or malignancy ? BARBARA Wilcox(ASCP) Report Electronically Reviewed and Signed Out By ??BARBARA Wilcox(ASCP) ??08/10/2022 10:20:55Specimen(s) Received: A: Imaged Thinprep Pap Test w/ Reflex HPV - [employer] Cytologic Material Clinical History: Last Menstrual Period: 07/31/22 The Pap test is a screening test used to aid in the detection of cervical cancer and its precursors. ??It should not be the sole means by which malignant and premalignant lesions are diagnosed. ??Both false negative and false positive results may occur. ?? It also has poor sensitivity for the detection of endometrial lesions and should not be used to evaluate suspected endometrial abnormalities. ??For these reasons it is most important to obtain Pap tests at regular intervals. The performance characteristics of some immunohistochemical stains, fluorescence in-situ hybridization tests and immunophenotyping by flow cytometry cited in this report (if any) were determined by the Surgical Pathology Department at [facility] as part of an ongoing food quality tester program and in compliance with federally mandated regulations drawn from the Clinical Laboratory Improvement Act of 1988 (CLIA '88). ??Some of these tests rely on the use of analyte specific reagents and are subject to specific labeling requirements by the US Food and Drug Administration. ??Such diagnostic tests may only be performed in a facility that is certified by the Department of Health and Human Services as a high complexity laboratory under CLIA '88. The FDA has determined that such clearance or approval is not necessary. ??This test is used for clinical purposes. ??It should not be regarded as investigational or for research. ??Nevertheless, federal rules concerning the medical use of analyte specific reagents require that the following disclaimer be attached to the report: This test was developed and its performance characteristics determined by the Surgical Pathology Department [facility]. ??It has not been cleared or approved by the U. S. Food and Drug Administration. Gabriela Murcia MD LAB CYTOLOGY ORDERABL ES Final Result Performing Organization Address City/State/ZIP Co dc Phone Number PATHOLOGY [id number] [place] [address] from Last 3 Months or Most Recently Relevant to Health Maintenance [place] [address] [place] [address] Advance Directives For more information, please contact: [phone] * Full Code (Latest Code Status on File) Date Activated Date Inactivated Comments 01/28/2023 8:47 AM 01/28/2023 2:46 PM * Full Code Date Activated Date Inactivated Comments 01/28/2023 8:47 AM 01/28/2023 8:47 AM Care Teams Moisture Tester Relationship Specialty Start Date End Date Loli Erwin NP [address] [place] [address] PCP - General Nurse Practitioner 07/20/23 Suzan Caldwell PT Physical Therapist Physical Therapy 04/21/22
--- OUTSIDE RECORDS SUMMARY | 2024-03-27 12:16 | XMS_ITS | Clinical Summary ---
Author Organization [facility] Address [address] [facility] [place] [address] Care Team Providers Care Medical Physicist Name Role Phone Rip Loli MCDANIEL Primary Care Provider [phone] Loli Erwin Unavailable [phone] Source Comments [facility],non-owned Affiliates and Associated Physician Practices is amultiple site organization consisting of ambulatory clinics and hospital sitesin [place], [place], [place] and [place]. This disclosure is being madepursuant to the Care Everywhere program and may not contain all information available regarding this patient. Last updated 17.[facility] Allergies No known active allergies Medications * Be aware that medications may not be up to date on this document. Alwaysverify current medications with the patient. Medication Sig Dispensed Refills Start Date End Date Status Estarylla 0.25-35 MG-MCG tablet Take 1 (one) tablet by mouth once daily Active Encounters Date Type Department Care Team Description 02/06/2024 3:15 PM PEDIATRIC NEUROLOGIST - 02/06/2024 11:59 PM PEDIATRIC NEUROLOGIST Hospital Encounter [facility] [address] [facility] [address] [place] [address] Nithya Pierce MD Rheumatology Discharge Disposition: Home or Self Care 02/06/2024 1:40 PM PEDIATRIC NEUROLOGIST Office Visit [facility] - Rheumatology [address] [facility], [address] [place] [address] Nithya Pierce MD Rash (Primary Dx); Urticaria; Other migraine without status migrainosus, not intractable; Low back pain, unspecified back pain laterality, unspecified chronicity, unspecified whether sciatica present; Fatigue, unspecified type; Positive double stranded DNA antibody test; Rectal bleeding from Last 3 Months Social History Tobacco Use Types Packs/Day Years Used Date Smoking Tobacco: Never Assessed Sex and Gender Information Value Date Recorded Sex Assigned at Not on file Gender Identity Not on file Sexual Orientation Not on file Last Filed Vital Signs Vital Sign Reading Time Taken Comments Blood Pressure 104/62 02/06/2024 1:49 PM PEDIATRIC NEUROLOGIST Pulse 82 02/06/2024 1:49 PM PEDIATRIC NEUROLOGIST Temperature 36.8 ??C (98.2 ??F) 02/06/2024 1:49 PM CS T Respiratory Rate 16 02/06/2024 1:49 PM PEDIATRIC NEUROLOGIST Oxygen Saturation 97% 02/06/2024 1:49 PM PEDIATRIC NEUROLOGIST Inhaled Oxygen Concentration - - Weight 67.1 kg (148 lb) 02/06/2024 1:49 PM PEDIATRIC NEUROLOGIST Height 154.9 cm (5' 1 ) 02/06/2024 1:49 PM PEDIATRIC NEUROLOGIST Body Mass Index 27.96 02/06/2024 1:49 PM PEDIATRIC NEUROLOGIST Plan of Treatment Upcoming Encounters Date Type Department Care Team (Late st Contact Info) Description 03/27/2024 3:40 PM PEDIATRIC NEUROLOGIST Office Visit [facility] - Rheumatology [address] [place] [phone] Nithya Pierce MD [address] [place] [phone] 06/26/2024 2:10 PM CDT Office Visit [facility] - Dermatology [address] [place] [address], [place] [address] Brunilda Cuello MD [address] [place] [address] [place] [address] Health Maintenance Due Date Last Done Comments PAP SMEAR 1997 HIV SCREENING 2012 HPV VACCINE (1 - 3-dose series) 2012 HEPATITIS C SCREENING 10/11/2015 DTAP/TDAP/TD VACCINES (1 - Tdap) 2016 HEPATITIS B VACCINE (1 of 3 - 19+ 3-dose series) 2016 COVID-19 VACCINE ( season) 2023 INFLUENZA VACCINE (#1) 2023 9, 02/01/2018, 12/28/2016, Additional history exists DEPRESSION SCREENING 02/22/2024 ZOSTER VACCINE (1 of 2) 10/16/2047 HIB VACCINE Aged Out No longer eligi ble based on patient's age to complete this topic MENINGOCOCCAL (Group B) VACCINE Aged Out No longer eligible based on patient's age to complete this topic MENINGOCOCCAL VACCINE Aged Out No shayla clyde eligible based on patient's age to complete this topic PNEUMOCOCCAL VACCINE Aged Out No long er eligible based on patient's age to complete this topic Procedures Procedure Name Priority Date/Time Associated Diagnosis Comments XR SI JOINTS 3VW OR MORE Routine 02/06/2024 3:32 PM PEDIATRIC NEUROLOGIST Low back pain, unspecified back pain laterality, unspecified chronicity, unspecified whether sciatica present INFLAMMATORY BOWEL DISEASE PANEL Routine 02/06/2024 3:08 PM PEDIATRIC NEUROLOGIST Rectal bleeding CEDRICK PANEL COMPREHENSIVE Routine 02/06/2024 3:06 PM PEDIATRIC NEUROLOGIST Positive double stranded DNA antibody test CYCLIC CITRULLINATED PEPTIDE(CCP) AB IGG Routine 02/06/2024 3:06 PM PEDIATRIC NEUROLOGIST Positive double stranded DNA antibody test VITAMIN B12 Routine 02/06/2024 3:05 PM PEDIATRIC NEUROLOGIST Fatigue, unspecified type VITAMIN D 25-HYDROXY Routine 02/06/2024 3:05 PM PEDIATRIC NEUROLOGIST Fatigue, unspecified type COMPLEMENT C3 C4 PANEL Routine 3:05 PM PEDIATRIC NEUROLOGIST Positive double stranded DNA antibody test DNA ANTIBODY DS CRITHIDIA IFA Routine 02/06/2024 3:05 PM PEDIATRIC NEUROLOGIST Positive double stranded DNA antibody test CEDRICK BLOOD SCREEN W/REFLEX TITER Routine 02/06/2024 3:05 PM PEDIATRIC NEUROLOGIST Positive double stranded DNA antibody test C-REACTIVE PROTEIN Routine 02/06/2024 3: 05 PM PEDIATRIC NEUROLOGIST Positive double stranded DNA antibody test ERYTHROCYTE SEDIMENTATION RATE Routine 02/06/2024 3:05 PM PEDIATRIC NEUROLOGIST Positive double stranded DNA antibody test COMPREHENSIVE METABOLIC PANEL Routine 02/06/2024 3:05 PM PEDIATRIC NEUROLOGIST Positive double stranded DNA antibody test CBC W AUTO DIFFERENTIAL Routine 02/06/2024 3:05 PM PEDIATRIC NEUROLOGIST Positive double stranded DNA antibody test from Last 3 Months Results * XR SI Joints 3Vw or More (02/06/2024 3:32 PM PEDIATRIC NEUROLOGIST) Anatomical Region Laterality Modality Pelvis, Lower Extremity [facility] 02/07/2024 9:36 AM PEDIATRIC NEUROLOGIST Impressions 02/07/2024 9:36 AM PEDIATRIC NEUROLOGIST IMPRESSION: Radiographically normal sacroiliac joints. > Interpreting Provider: Larissa Salamanca MD on 02/07/2024 9:36 AM Narrative 02/07/2024 9:36 AM PEDIATRIC NEUROLOGIST PROCEDURE: ??XR SI JOINTS 3VW OR MORE DATE/TIME OF EXAM: ??02/06/2024 3:32 PM CLINICAL INFORMATION: None relevant/not provided if blank. Indication: M54.50: Low back pain, unspecified Additional History: COMPARISON: None. FINDINGS: The sacroiliac joints are radiographically normal. There is no ankylosis or sclerosis. There are no erosions or widening. Both hip joint spaces are normal. Procedure Note Larissa Salamanca MD - 02/07/2024 PROCEDURE: XR SI JOINTS 3VW OR MORE DATE/TIME OF EXAM: 02/06/2024 3:32 PM CLINICAL INFORMATION: None relevant/not provided if blank. Indication: M54.50: Low back pain, unspecified Additional History: COMPARISON: None. FINDINGS: The sacroiliac joints are radiographically normal. There is no ankylosisor sclerosis. There are no erosions or widening. Both hip joint spaces are normal. IMPRESSION: Radiographically normal sacroiliac joints. > Interpreting Provider: Larissa Salamanca MD on 02/07/2024 9:36 AM Nithya Pierce MD DIAGNOSTIC IMAGING O RDERABLES * INFLAMMATORY BOWEL DISEASE PANEL (02/06/2024 3:08 PM PEDIATRIC NEUROLOGIST) Saccharomyces cerevisiae Antibody IgG 22.2 0.0 - 24.9 Units [facility] ACCOUNT BILL Comment: ?Negative ? <20.0 ?Equivocal ??20.1 - 24.9 ?Positive ? >or= 25.0 Saccharomyces cerevisiae Antibody IgA <20.0 0.0 - 24.9 Units [facility] ACCOUNT BILL Comment: ? Negative ?<20.0 ? Equivocal 20.1 - 24.9 ? Positive ?>or= 25.0 IgA and IgG antibody testing for S. cerevisiae is useful adjunct testing for differentiating Crohn's disease and ulcerative colitis. Close to 80% of Crohn's disease patients are positive for either IgA or IgG. In ulcerative colitis, less than 15% are positive for IgG and less than 2% are positive for IgA. Fewer than 5% are positive for either IgG or IgA antibody, and no healthy controls had antibody for both. Atypical p-ANCA Titer <1:20 Neg:<1:20 titer [facility] ACCOUNT BILL Comment: The atypical pANCA pattern has been observed in a significant percentage of patients with ulcerative colitis, primary sclerosing cholangitis and autoimmune hepatitis. ?ASCA+/PANCA- Suggestive of Crohn's disease ?ASCA-/PANCA+ Suggestive of Ulcerative colitis Blood BLOOD SPECIMEN / Unknown 02/06/2024 3:08 PM PEDIATRIC NEUROLOGIST 02/06/2024 Narrative [facility] ACCOUNT BILL - 02/09/2024 3:08 PM PEDIATRIC NEUROLOGIST Performed at: ??01 - [facility] [address] ??[id number] Computer Support Technician: Sarah Phillips MD, Phone: ??[phone] Performed at: ??02 - [facility] [address] [place], [place] ??[id number] Computer Support Technician: Romel Gorman PhD, Phone: ??[phone] Nithya Pierce MD LAB - CHEMISTRY CHASE WHEELER Performing Organization Address City/State/[facility] Co de Phone Number [facility] ACCOUNT BILL [address] [place] [address] * (ABNORMAL) CEDRICK PANEL COMPREHENSIVE (02/06/2024 3:06 PM PEDIATRIC NEUROLOGIST) Anti-dsDNA Quantitative 10(H) 0 - 9 IU/mL [facility] ACCOUNT BILL Comment: ? Negative ?<5 ? Equivocal ??5 - 9 ? Positive ?>9 PRODUCTION PLANNING SUPERVISOR Antibody <0.2 0.0 - 0.9 AI [facility] ACCOUNT BILL Cuello (MARTHA) Antibody <0.2 0.0 - 0.9 AI [facility] ACCOUNT BILL Antiscleroderma-70 Antibody <0.2 0.0 - 0.9 AI [facility] ACCOUNT BILL Sjogren's Antibodies (SSA) <0.2 0.0 - 0.9 AI [facility] ACCOUNT BILL Sjogren's Antibodies (SSB) <0.2 0.0 - 0.9 AI [facility] ACCOUNT BILL Antichromatin Antibodies <0.2 0.0 - 0.9 AI [facility] ACCOUNT BILL Lacey-1 Antibody <0.2 0.0 - 0.9 AI [facility] ACCOUNT BILL Centromere B Antibody <0.2 0.0 - 0.9 AI [facility] ACCOUNT BILL See Below Comment [facility] ACCOUNT BILL Comment: Autoantibody ? Disease Association ?Condition ?Frequency ? --------- Antinuclear Antibody, ?SLE, mixed connective Direct (CEDRICK-D) ? tissue diseases ? --------- dsDNA ?SLE ?40 - 60% ? --------- Chromatin ?Drug induced SLE ?90% ? SLE ?48 - 97% ? --------- SSA (Ro) ? SLE ?25 - 35% ? Sjogren's Syndrome ? 40 - 70% ? Lupus ? 100% ? --------- SSB (La) ? SLE ? 10% ? Sjogren's Syndrome ?30% ?--------- Sm (anti-Cuello) ?SLE ?15 - 30% ?--------- PRODUCTION PLANNING SUPERVISOR ?Mixed Connective Tissue ? Disease ? 95% (U1 nRNP, ?SLE ?30 - 50% anti-ribonucleoprotein) ??Polymyositis and/or ? Dermatomyositis ? 20% ? --------- Scl-70 (antiDNA ?Scleroderma (diffuse) ?20 - 35% topoisomerase) ? Crest ? 13% ? --------- Lacey-1 ? Polymyositis and/or ? Dermatomyositis ?20 - 40% ? --------- Centromere B ? Scleroderma - Crest ? variant ? 80% Blood BLOOD SPECIMEN / Unknown 02/06/2024 3:06 PM PEDIATRIC NEUROLOGIST 02/06/2024 Narrative [facility] ACCOUNT BILL - 02/07/2024 1:07 PM PEDIATRIC NEUROLOGIST Performed at: ??01 - [facility] [address] [place], [place] ??[id number] Computer Support Technician: Romel Gorman PhD, Phone: ??[phone] Nithya Pierce MD LAB - SEROLOGY ORDER SARAH Performing Organization Address City/State/[facility] Co de Phone Number [facility] ACCOUNT BILL [address] [place] [address] * (ABNORMAL) CYCLIC CITRULLINATED PEPTIDE(CCP) AB IGG (02/06/2024 3:06 PM PEDIATRIC NEUROLOGIST) CCP Antibodies IgG/IgA 45(H) <20 Units [facility] ACCOUNT BILL Comment: ?Negative: <20 ? Weak Positive: 20-39 ?Moderate Positive: 40-59 ??Strong Positive: >59 Blood BLOOD SPECIMEN / Unknown 02/06/2024 3:06 PM PEDIATRIC NEUROLOGIST 02/06/2024 Narrative [facility] ACCOUNT BILL - 02/10/2024 6:10 AM PEDIATRIC NEUROLOGIST Performed at: ??01 - [facility] [address] [place], [place] ??[id number] Computer Support Technician: Bennie Chavez MD, Phone: ??[phone] Nithya Pierce MD LAB - CHEMISTRY CHASE WHEELER [facility] ACCOUNT BILL [address] [place] [address] * DNA ANTIBODY DS CRITHIDIA IFA (02/06/2024 3:05 PM PEDIATRIC NEUROLOGIST) dsDNA Antibody Crithidia IFA Negative Negative [facility] ACCOUNT BILL Blood BLOOD SPECIMEN / Unknown 02/06/2024 3:05 PM PEDIATRIC NEUROLOGIST 02/06/2024 Narrative [facility] ACCOUNT BILL - 02/08/2024 1:08 PM PEDIATRIC NEUROLOGIST Performed at: ??01 - [facility] [address] [place], [place] ??[id number] Computer Support Technician: Romel Gorman PhD, Phone: ??[phone] Nithya Pierce MD LAB - SEROLOGY ORDER SARAH Performing Organization Address City/[facility]/ZIP Co de Phone Number [facility] ACCOUNT BILL [address] [place] [address] * C-REACTIVE PROTEIN (02/06/2024 3:05 PM PEDIATRIC NEUROLOGIST) C-Reactive Protein 0.50 <=0.50 mg/dL [facility] ACCOUNT BILL Blood BLOOD SPECIMEN / Unknown 02/06/2024 3:05 PM PEDIATRIC NEUROLOGIST 02/06/2024 Narrative [facility] ACCOUNT BILL - 02/06/2024 9:06 PM PEDIATRIC NEUROLOGIST Performed at: ??01 [facility] [address] [place], [place] ??[id number] Computer Support Technician: Mendoza Ho MD, Phone: ??[phone] Nithya Pierce MD LAB - CHEMISTRY CHASE WHEELER [facility] ACCOUNT BILL [address] [place] [address] * CEDRICK BLOOD SCREEN W/REFLEX TITER (02/06/2024 3:05 PM PEDIATRIC NEUROLOGIST) CEDRICK Negative Negative [facility] ACCOUNT BILL Comment: Methodology: Indirect Immunofluorescence Assay (IFA) avril gusman Hep-2-Gamma cells. Blood BLOOD SPECIMEN / Unknown 02/06/2024 3:05 PM PEDIATRIC NEUROLOGIST 02/06/2024 Narrative [facility] ACCOUNT BILL - 02/07/2024 3:08 PM PEDIATRIC NEUROLOGIST Performed at: ??01 - [address] ??[id number] Computer Support Technician: Mendoza Ho MD, Phone: ??[phone] Nithya Pierce MD LAB - CHEMISTRY CHASE WHEELER [facility] ACCOUNT BILL [address] [place] [address] * VITAMIN D 25-HYDROXY (02/06/2024 3:05 PM PEDIATRIC NEUROLOGIST) Pathologist [facility] Vitamin D, 25 Hydroxy 40.5 30 - 80 ng/mL [facility] ACCOUNT BILL Comment: Vitamin D Status: ?Deficiency ? <20 ? ng/mL ?Insufficiency ?? 20-30 ??ng/mL ?Sufficiency ? 30-100 ng/mL ?Toxicity ? >100 ?ng/mL Blood BLOOD SPECIMEN / Unknown 02/06/2024 3:05 PM PEDIATRIC NEUROLOGIST 02/06/2024 Narrative [facility] ACCOUNT BILL - 02/06/2024 11:06 PM PEDIATRIC NEUROLOGIST Performed at: ??01 - [address] ??[id number] Computer Support Technician: Mendoza Ho MD, Phone: ??[phone] Nithya Pierce MD LAB - CHEMISTRY ORDE LIAM [facility] ACCOUNT BILL [address] [place] [address] * ERYTHROCYTE SEDIMENTATION RATE (02/06/2024 3:05 PM PEDIATRIC NEUROLOGIST) Erythrocyte Sedimentation Rate Westergren 1 0 - 20 MM/HR [facility] ACCOUNT BILL Blood BLOOD SPECIMEN / Unknown 02/06/2024 3:05 PM PEDIATRIC NEUROLOGIST 02/06/2024 Narrative [facility] ACCOUNT BILL - 02/06/2024 9:06 PM PEDIATRIC NEUROLOGIST Performed at: ??[address] [place] [address] ??[id number] Computer Support Technician: Mendoza Ho MD, Phone: ??[phone] Nithya Pierce MD LAB - HEMATOLOGY ORD JAVI Performing Organization Address [facility]/ZIP Co de Phone Number [facility] ACCOUNT BILL [address] [place] [address] * CBC WITH DIFFERENTIAL (02/06/2024 3:05 PM PEDIATRIC NEUROLOGIST) WBC 7.2 4.0 - 10.7 x10E9/L [facility] ACCOUNT BILL RBC 4.40 3.90 - 5.20 x10E12/L [facility] ACCOUNT BILL Hemoglobin 13.1 11.9 - 15.8 g/dL [facility] ACCOUNT BILL Hematocrit 38.9 34.8 - 46.1 % [facility] ACCOUNT BILL MCV 88.4 80.0 - 98.0 fL [facility] ACCOUNT BILL MCH 29.8 26.7 - 33.6 pg [facility] ACCOUNT BILL MCHC 33.7 31.7 - 36.3 g/dL [facility] ACCOUNT BILL RDW 11.9 11.3 - 14.8 % [facility] ACCOUNT BILL Platelet Count 318 150 - 420 x10E9/L [facility] ACCOUNT BILL Comment:MPV (CS) 10.4 fL 7.8 -11.4 Granulocytes % 67.8 41.0 - 74.0 % [facility] ACCOUNT BILL Lymphocytes % 27.1 17.0 - 47.0 % [facility] ACCOUNT BILL Monocytes % 4.0 3.0 - 11.0 % [facility] ACCOUNT BILL Eosinophils % 0.4 0.0 - 7.0 % [facility] ACCOUNT BILL Basophils % 0.4 0.0 - 1.6 % [facility] ACCOUNT BILL Granulocytes Absolute 4.88 1.60 - 7.50 x10E9/L [facility] ACCOUNT BILL Lymphocytes Absolute 1.95 1.00 - 4.40 x10E9/L [facility] ACCOUNT BILL Monocytes Absolute 0.29 0.15 - 1.00 x10E9/L [facility] ACCOUNT BILL Eosinophils Absolute 0.03 0.00 - 0.60 x10E9/L [facility] ACCOUNT BILL Basophils Absolute 0.03 0.00 - 0.13 x10E9/L [facility] ACCOUNT BILL Immature Granulocytes 0.3 0.0 - 1.0 % [facility] ACCOUNT BILL Blood BLOOD SPECIMEN / Unknown 02/06/2024 3:05 PM PEDIATRIC NEUROLOGIST 02/06/2024 Narrative [facility] ACCOUNT BILL - 02/06/2024 9:06 PM PEDIATRIC NEUROLOGIST Performed at: ??[address] [place] [address] ??[id number] Computer Support Technician: Mendoza Ho MD, Phone: ??[phone] Nithya Pierce MD LAB - HEMATOLOGY ORD ERABLES [facility] ACCOUNT BILL [address] [place] [address] * COMPREHENSIVE METABOLIC PANEL (02/06/2024 3:05 PM PEDIATRIC NEUROLOGIST) Glucose 85 70 - 99 mg/dL [facility] ACCOUNT BILL BUN 9 5.3 - 18.7 mg/dL [facility] ACCOUNT BILL Creatinine 0.87 0.57 - 1.11 mg/dL [facility] ACCOUNT BILL eGFR by CKD-EPI >90 >=90 mL/min/1.7 3 m2 [facility] ACCOUNT BILL Sodium 137 136 - 145 mmol/L [facility] ACCOUNT BILL Potassium 4.2 3.5 - 5.1 mmol/L [facility] ACCOUNT BILL Chloride 105 98 - 107 mmol/L [facility] ACCOUNT BILL CO2 27 22 - 29 mmol/L [facility] ACCOUNT BILL Calcium 9.6 8.4 - 10.4 mg/dL [facility] ACCOUNT BILL Protein Total 7.3 6.4 - 8.3 gm/dL [facility] ACCOUNT BILL Albumin 4.1 3.4 - 5.0 gm/dL [facility] ACCOUNT BILL Bilirubin Total 0.6 0.2 - 1.2 mg/dL [facility] ACCOUNT BILL Alkaline Phosphatase 43 40 - 150 U/L [facility] ACCOUNT BILL AST 19 5 - 34 U/L [facility] ACCOUNT BILL ALT 25 0 - 55 U/L [facility] ACCOUNT BILL Blood BLOOD SPECIMEN / Unknown 02/06/2024 3:05 PM PEDIATRIC NEUROLOGIST 02/06/2024 Narrative [facility] ACCOUNT BILL - 02/06/2024 9:06 PM PEDIATRIC NEUROLOGIST Performed at: ?? [address] ??[id number] Computer Support Technician: Mendoza Ho MD, Phone: ??[phone] Nithya Pierce MD LAB - CHEMISTRY CHASE WHEELER Performing Organization Address City/[facility] Co de Phone Number [facility] ACCOUNT BILL [address] [place] [address] * VITAMIN B12 (02/06/2024 3:05 PM PEDIATRIC NEUROLOGIST) Vitamin B12 275 213 - 816 pg/mL [facility] ACCOUNT BILL Blood BLOOD SPECIMEN / Unknown 02/06/2024 3:05 PM PEDIATRIC NEUROLOGIST 02/06/2024 Narrative [facility] ACCOUNT BILL - 02/06/2024 11:06 PM PEDIATRIC NEUROLOGIST Performed at: ?? [address] ??[id number] Computer Support Technician: Mendoza Ho MD, Phone: ??[phone] Nithya Pierce MD LAB - CHEMISTRY CHASE WHEELER Performing Organization Address City/[facility]/ZIP Co de Phone Number [facility] ACCOUNT BILL [address] [place] [address] * COMPLEMENT C3 C4 PANEL (02/06/2024 3:05 PM PEDIATRIC NEUROLOGIST) Complement C3 136 82 - 167 mg/dL [facility] ACCOUNT BILL Complement C4 23 12 - 38 mg/dL [facility] ACCOUNT BILL Blood BLOOD SPECIMEN / Unknown 02/06/2024 3:05 PM PEDIATRIC NEUROLOGIST 02/06/2024 Narrative [facility] ACCOUNT BILL - 02/07/2024 1:07 PM PEDIATRIC NEUROLOGIST Performed at: ??01 - [facility] [address] [facility], [place], [place] ??[id number] Computer Support Technician: Romel Gorman PhD, Phone: ??[phone] Nithya Pierce MD LAB - CHEMISTRY CHASE WHEELER [facility] ACCOUNT BILL [address] [place] [address] from Last 3 Months Care Teams Medical Physicist Relationship Specialty Start Date End Date Loli Erwin APRN-CNP [address] [place] [phone] PCP - General Nurse Practitioner Family 02/09/24 Loli Erwin APRN-CNP [address] [place] [phone] Nurse Practitioner Family 02/09/24
--- OUTSIDE RECORDS SUMMARY | 2024-03-27 12:16 | XMS_ITS | Encounter Summary ---
Author Organization [facility] Address [address] [facility] [place] [address] Phone Care Team Providers Care Char Filter Operator Name Role Phone Rip, Loli SY CNP Primary Care Provider [phone] Reason for Referral * PT/OT/ST (Routine) - Open Specialty Diagnoses / Procedures Referred By Contac t Referred To Contact Physical Therapy Diagnoses Stress incontinence, female Gabriela Murcia MD [address] [place] [address] Phone: tel: fax: [facility] at [address], [address] [address] Phone: tel: fax: Referral ID Status Reason Start Date Expiration Date Visits Re quested Visits Authorized [id number] Open 03/23/2024 50 50 Scheduling Instructions TRANSIT OPERATOR Encounter Details Date Type Department Care Team (Late st Contact Info) Description 03/23/2024 Transcribe Orders [facility] [address] [place] [address] Gabriela Murcia MD [address] [place] [id number] Stress incontinence, female (Primary Dx) Social History Tobacco Use Types Packs/Day Years Used Date Smoking Tobacco: Never Smokeless Tobacco: Never Alcohol Use Standard Drinks/Week Comments Never 0 (1 standard drink = 0.6 oz pur e alcohol) Comments No Sex and Gender Information Value Date Recorded Sex Assigned at Not on file Legal Sex Female 11:23 PM CDT Gender Identity Not on file Sexual Orientation Not on file documented as of this encounter Plan of Treatment Upcoming Encounters Date Type Department Care Team (Late st Contact Info) Description 04/19/2024 4:00 PM PARATRANSIT OPERATOR Physical Therapy [facility] [address] [place] [address] Gabriela Murcia MD [address] [place] [address] Eugenia Villarreal, PT [place] Discharge Disposition: Discharged to home or Selfcare 04/26/2024 4:00 PM PARATRANSIT OPERATOR Physical Therapy [facility] [address] [place] [address] Gabriela Murcia MD [address] [place] [address] Eugenia Villarreal, [place] Discharge Disposition: Discharged to home or Selfcare Scheduled Referrals Name Type Priority Associated Diagnoses Orde r Schedule PHYSICAL THERAPY REFERRAL Outpatient Referral Routine Stress incontinence, female Expected: 03/23/2024, Expires: 03/23/2025 documented as of this encounter Visit Diagnoses Diagnosis Stress incontinence, female- Primary Female stress incontinence documented in this encounter Care Teams Char Filter Operator Relationship Specialty Start Date End Date Loli Erwin APRN, PARTS IDENTIFICATION TECHNICIAN [address] [place] [address] PCP - General Family Medicine 07/29/23 documented as of this encounter
--- OUTSIDE RECORDS SUMMARY | 2024-03-27 12:16 | XMS_ITS | Clinical Summary ---
Author Organization [facility] Address [address] [place] [address] Phone Care Team Providers Care Assembler Faucets Name Role Phone Loli Erwin APRN, CNP Primary Care Provider [phone] Allergies No known active allergies Medications No known medications Encounters Date Type Department Care Team Description 03/23/2024 Transcribe Orders [facility] [address] [place] [id number] Gabriela Murcia MD Stress incontinence, female (Primary Dx) from Last 3 Months Social History Tobacco [...] Sign Reading Time Taken Comments Blood Pressure 127/85 06/09/2021 10:00 PM CDT Pulse 100 06/09/2021 10:00 PM CDT Temperature 36.2 ??C (97.1 ??F) 06/09/2021 7:48 PM CD T Respiratory Rate 20 06/09/2021 7:48 PM CDT Oxygen Saturation 100% 06/09/2021 10:00 PM CDT Inhaled Oxygen Concentration - - Weight 70.3 kg (155 lb) 06/09/2021 7:48 PM CDT Height 154.9 cm (5' 1 ) 06/09/2021 7:48 PM CDT Body Mass Index 29.29 06/09/2021 7:48 PM CDT Plan of Treatment Upcoming Encounters Date Type Department Care Team (Late st Contact Info) Description 04/19/2024 4:00 PM PASTE MIXER LIQUID Physical Therapy [facility] [address] [place] [phone] Gabriela Murcia MD [address] [place] [address] Eugenia Villarreal, PT [place] Discharge Disposition: Discharged to home or Selfcare 04/26/2024 4:00 PM PASTE MIXER LIQUID Physical Therapy [facility] [address] [place] [phone] Gabriela Murcia MD [address] [place] [address] Eugenia Villarreal, PT [place] Discharge Disposition: Discharged to home or Selfcare Health Maintenance Due Date Last Done Comments Hepatitis C Virus (HCV) Screening 1995 Pap Smear 2018 Human Papillomavirus (HPV) Immunization (3 - 3-dose series) 08/25/2020 06/02/2020, 11/21/2015 Influenza Immunization (#1) 10/23/202301/23, 02/01/2018, 12/28/2016, Additional history exists SARS-COV-2 Immunization ( season) 2023 Respiratory Syncytial Virus (RSV) Immunization (Adult) (1 - 1-dose 75+ series) 2072 Hepatitis B Immunization Completed 999, 01/01/1998, 1995 Meningococcal Immunization (ACWY) Completed 07/30/2016, 01/04/2014 TdaP Immunization Completed 02/20/2019, , 11/07/2013 Pneumococcal Immunization Combined Aged Out No longer eligible based on patient's age to complete this topic Rotavirus Immunization Aged Out No lo nger eligible based on patient's age to complete this topic Insurance [place]ICAID [place] Care Teams Assembler Faucets Relationship Specialty Start Date End Date Loli Erwin APRN, WOOD PATTERN MAKER [address] [place] [address] PCP - General Family Medicine 07/29/23
--- OUTSIDE RECORDS SUMMARY | 2024-03-27 12:16 | XMS_ITS | Clinical Summary ---
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 Afebrile no acute signs of infection. No acute findings on exam. Will order US to r/o cancer or other structural changes. Advised it will most likely resolve on it's own. Tylenol/Ibuprofen as needed. Heat/ice might help also. Continue zyrtec. Mass of jaw 03/31/2023 Assessment & Plan (03/31/2023 4:32 PM POULTRY BUYER): Noticed approx 10 days ago, see HPI [...] discussed - Consider starting counseling. Can use [employer] to find a counselor. Telehealth follow-up 6 weeks Assessment & Plan (08/19/2022 4:56 PM CDT): Chronic. MARGARET 7 not performed today. Dicussed treatment options. Rec Daily multivitamin. Can try camomile. Patient advised can also research [place] Le[place] Wort. Also consider starting counseling. Can use [employer] to find a counselor. Follow-up as needed [...] requests Assessment & Plan (04/06/2022 3:40 PM POULTRY BUYER): Chronic. Recommend selenium sulfide daily x1 week [...] reduction Assessment & Plan (04/06/2022 3:41 PM POULTRY BUYER): Chronic without radiation. No red flag symptoms. [...] 04/06/2022 Assessment & Plan (04/06/2022 3:42 PM POULTRY BUYER): No symptoms. Patient requesting test. Low vitamin D level 04/06/2022 Encounters Date Type Department Care Team Description 03/22/2024 Telephone [facility] [address] [place] [address] Gabriela Murcia MD Referral Request 12/27/2023 Telephone [facility] [address] [place] [address] Gabriela Murcia MD std testing from Last 3 Months Surgical History Surgery Date Site/Laterality Comments TONSILLECTOMY 02/21/2011 - 02/21/2012 COLONOSCOPY 01/28/2023 1st WISDOM TOOTH EXTRACTION 02/21/2018 - 02/20/2019 Family History Medical History Relation Name Comments Liver cancer Paternal Grandfather Relation Name Status Comments Paternal Grandfather Social History Tobacco Use Types Packs/Day Years [...] on file Legal Sex Female 7:35 PM POULTRY BUYER Gender Identity Not on file Sexual Orientation Not on file Occupation Industry Job Start Date Job End Date N/A Disabled Not on file Not on file Not on file Obstetrics History Para Term AB IAB SAB Ectopic Multiple Livin g Live Births 1 1 1 1 1 Date Outcome GA Total Labor Labor/2nd/3rd Weight Sex Type Anes PTL [place] A1 A5 Name Clin 2019 Term 39w 1d 3.572 kg (7 lb 14 oz) F Vag-S pont Living Last Filed Vital Signs Vital Sign Reading Time Taken Comments Blood Pressure 100/70 08/12/2023 1:47 PM CDT Pulse 93 03/31/2023 3:57 PM POULTRY BUYER Temperature 36.5 ??C (97.7 ??F) 03/31/2023 3:57 PM CS T Respiratory Rate 20 03/31/2023 3:57 PM POULTRY BUYER Oxygen Saturation 97% 03/31/2023 3:57 PM POULTRY BUYER Inhaled Oxygen Concentration - - Weight 68.9 kg (152 lb) 08/12/2023 1:47 PM CDT Height 154.9 cm (5' 1 ) 01/28/2023 8:55 AM POULTRY BUYER Body Mass Index 28.72 01/28/2023 8:55 AM POULTRY BUYER Plan of Treatment Health Maintenance Due Date Last Done Comments HPV Vaccines (2 - 3-dose series) 12/19/2015 11/21/2015 Cervical Cancer Screening 08/06/2023 08/05/2022 Regular Well Visit/Exam 18-64 08/06/2023 08/05/2022 Influenza Vaccine (#1) 2023 11/07/2013, 2013 Depression Screening 10/29/2023 10/28/2022, 10/28/2022, 04/06/2022 DTaP/Tdap/Td Vaccine (7 - Td or Tdap) 11/08/2023 11/07/2013, 05/22/2003, 05/22/2003, Additional history exists Varicella Vaccines Completed 01/04/2014, 0 11/07/2013, 08/17/2001 Hepatitis C Screening Completed 08/12/2023 , 10/29/2022, 04/06/2022 Pneumococcal vaccine <65 Aged Out No longer eligible based on [...] last revised on 2019. Testing performed by: [facility], [address] [place] [address], [place]., [address] Blood 08/12/2023 2:16 PM CDT 08/12/2023 7:27 PM CDT us Gabriela Murcia MD LAB MICROBIOLOGY - [facility] ORDERABLES Final Result [facility]IS[facility] [address] Department [place] [address] * Pap with reflex to High Risk HPV (08/05/2022 7:19 AM CDT) Thin prep (Pap test) 08/05/2022 7:19 AM CDT 08/05/2022 7:19 AM CDT Narrative PATHOLOGY CH - 08/10/2022 10:20 AM CDT [facility] Department of Pathology [address] [place] [id number] Final Report Note to Patients: This [...] the details. Patient Name: ??MARK BARNES Address: ??[address] [place] [address], ?? [place], [place] [address] Gender: ??F : ??1995 (Age: 26) Service: ?? Location: ?? Hospital #: ??[id number] Patient Type: ?? SPECIMEN Taken: ??08/05/2022 Received: ??08/05/2022 Accessioned:: ??08/06/2022 Reported: ??08/10/2022 Physician(s): MD Gabriela Sher MD Diagnosis: SOURCE OF SPECIMEN ? Imaged Thinprep Pap Test w/ Reflex HPV - Sports Physiotherapist Cytologic Material: STATEMENT OF ADEQUACY ?- Satisfactory for evaluation; endocervical/transformation zone component present ? GENERAL CATEGORIZATION: ?- Negative for intraepithelial lesion or malignancy ? BARBARA Wilcox(ASCP) Report Electronically Reviewed and Signed Out By ??BARBARA Wilcox(ASCP) ??08/10/2022 10:20:55Specimen(s) Received: A: Imaged Thinprep Pap Test w/ Reflex HPV - Sports Physiotherapist Cytologic Material Clinical History: Last Menstrual Period: [...] determined by the Surgical Pathology Department at [facility] as part of an ongoing chemistry quality control analyst program and in compliance with federally mandated [...] characteristics determined by the Surgical Pathology Department [facility]. ??It has not been cleared or approved by the [place]. [place]. Food and Drug Administration. Gabriela Murcia MD LAB CYTOLOGY ORDERABL ES Final Result PATHOLOGY [address] [place] [address] from Last 3 Months or Most Recently Relevant to Health Maintenance Insurance [facility] [address] [place] [address] [place] [address] Advance Directives For more information, please contact: [phone] * Full Code (Latest Code Status on File) Date Activated Date Inactivated Comments 01/28/2023 8:47 AM 01/28/2023 2:46 PM * Full Code Date Activated Date Inactivated Comments 01/28/2023 8:47 AM 01/28/2023 8:47 AM Care Teams Supervisor Blood Donor Recruiters Relationship Specialty Start Date End Date Loli Erwin NP [address] [place] [address] PCP - General Nurse Practitioner 07/20/23 Suzan Caldwell, PT Physical Therapist Physical Therapy 04/21/22
--- OUTSIDE RECORDS SUMMARY | 2024-03-27 12:17 | XMS_ITS | Data Portability ---
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 Plan of Treatment Reminders Order Date Submit Date Provider Last Modified By Organization Details Last Modified Time Details Appointments None recorded. Lab C reactive protein, QN, serum or plasma 2023 024 [facility], [address] [facility] [address], [place], [address], 4 16:13:39 erythrocyte sedimentati on rate by westergren method 2023 024 [facility], [address] [place] [address] 2, [place], [address], 4 16:13:38 CEDRICK (antinuclea r antibodies) screen, serum 2023 024 [facility], [address] [place] [address] 2, [place], [address], 4 16:13:30 TSH, ultra-sensi tive, serum 2023 024 [facility], [address], [place], [address], 16:13:35 CMP, serum or plasma 2023 024 [facility], [address], [place], [address], 16:13:33 lipid panel, serum 2023 024 [facility], [address], [place], [address], 4 16:13:32 CBC 2023 024 [facility], [address], [place], [address], 16:13:37 vitamin B12 + folate, serum or blood 2023 024 [facility], [address] [facility], [facility] [address], [place], [address], 16:13:36 vitamin D, 25-hydroxy, total, serum 2023 024 [facility], [address] [facility], [facility] [address], [place], [address], 16:13:41 Referral breast surgery referral 2023 024 [email or web address] Vanessa Ocasio MD, [address] [facility] , [address], [place], [address], 4 12:16:52 Procedures None recorded. Surgeries None recorded. Imaging None recorded. Medication Orders selenium sulfide 2.5 % lotion 2023 024 [id number], [address] , [place], [place], [id number], 14:47:32 Patient TargetsNo targets recorded. Patient Instructions Encounter Date Encounter Id Patient Instructions Last Modified By Organization Details Last Modified Time 07/05/2023 [id number] tinea versicolor : care instructions Not available 07/05/2023 14:47:25 A healthy lifestyle: care instructions Not available 07/05/2023 14:47:25 Increase intake of fresh fruits,?? and vegetables. Avoid packaged foods and fast foods. ?? Follow a low salt diet, drink at least 8-10 8oz glasses of water a day, exercise most days of the week. Take all medications as prescribed. Keep appointments with PCP and all specialists. Not available 07/20/2023 10:13:24 follow up as needed, yearly to keep established with provider Not available 07/20/2023 10:13:29 Reason for Referral Breast Surgery Referral for Gynecomastia Referring Physician: Loli Tovar, Family Medicine, Encounter Date: 07/05/2023 Results Created Date Observation Date Name Description Value Unit Range Abnormal Flag Note LastModifiedBy Organization Detail LastModifiedTime 07/05/19 24 07/06/2023 ANTIN UCLEA R AB MULTI PLEX RFX 9 CEDRICK direct POSITI VE negati ve abnormal Not Available [facility] ([facility]) [address] [place], [address], 07/06/2023 16:13:30 07/05/19 24 07/06/2023 ANTIN UCLEA R AB MULTI PLEX RFX 9 anti-DNA (ds) Ab qn 17 IU/mL 0-9 above high normal Negat sergey <5 Equiv ocal 5 - 9 Posit sergey >9 Not Available [facility] ([facility]) [address] [facility], [place], [address], 07/06/2023 16:13:30 07/05/19 24 07/06/2023 ANTIN UCLEA R AB MULTI PLEX RFX 9 director of retail antibodies <0.2 ai 0.0-0. 9 Not Available [facility] ([facility]) [address] [place], [address], 07/06/2023 16:13:30 07/05/19 24 07/06/2023 ANTIN UCLEA R AB MULTI PLEX RFX 9 jones antibodies <0.2 Not Available [facility] ([facility]) [address] [place], [address], 07/06/2023 16:13:30 07/05/19 24 07/06/2023 ANTIN UCLEA R AB MULTI PLEX RFX 9 antisclerode rma-70 antibodies <0.2 Not Available [facility] ([facility]) [address] [place], [address], 07/06/2023 16:13:30 07/05/19 24 07/06/2023 ANTIN UCLEA R AB MULTI PLEX RFX 9 sjogren's anti-ss-A <0.2 Not Available [facility] ([facility]) [address] [place], [address], 07/06/2023 16:13:30 07/05/19 24 07/06/2023 ANTIN UCLEA R AB MULTI PLEX RFX 9 sjogren's anti-ss-B <0.2 Not Available [facility] ([facility]) [address] [place], [address], 07/06/2023 16:13:30 07/05/19 24 07/06/2023 ANTIN UCLEA R AB MULTI PLEX RFX 9 antichromati n antibodies <0.2 Not Available [facility] ([facility]) [address] [place], [address], 07/06/2023 16:13:30 07/05/19 24 07/06/2023 ANTIN UCLEA R AB MULTI PLEX RFX 9 anti-lacey-1 <0.2 Not Available [facility] ([facility]) [address] [place], [address], 07/06/2023 16:13:30 07/05/19 24 07/06/2023 ANTIN UCLEA R AB MULTI PLEX RFX 9 anti-centrom ere B antibodies <0.2 Not Available [facility] ([facility]) [address] [place], [address], 07/06/2023 16:13:30 07/05/19 07/06/2023 ANTIN UCLEA R AB MULTI PLEX RFX 9 see below: COMMEVITA T Autoa ntibo dy Disea se Assoc iatio n ----- ----- ----- ----- ----- ----- ----- ----- ----- ----- ----- ----- Condi tion Roe christiansony ----- ----- ----- ----- - ----- ----- ----- ----- ---- ----- ---- Antin uclea r Antib sy, SLE, mixed conne ctive Direc t (CEDRICK- D) tissu e disea ses ----- ----- ----- ----- - ----- ----- ----- ----- ---- ----- ---- dsDNA SLE 40 - 60% ----- ----- ----- ----- - ----- ----- ----- ----- ---- ----- ---- Chrom atin Drug induc ed SLE 90% SLE 48 - 97% ----- ----- ----- ----- - ----- ----- ----- ----- ---- ----- ---- SSA (Ro) SLE 25 - 35% Sjogr en's Syndr ome 40 - 70% Neona benjy Lupus 100% ----- ----- ----- ----- - ----- ----- ----- ----- ---- ----- ---- SSB (La) SLE 10% Sjogr en's Syndr ome 30% ----- ----- ----- ----- - ----- ----- ----- ----- --- ----- ---- Sm (anti -Josué h) SLE 15 - 30% ----- ----- ----- ----- - ----- ----- ----- ----- --- ----- ---- HEALTH ADMINISTRATOR Mixed Conne ctive Tissu e Disea se 95% (U1 nRNP, SLE 30 - 50% anti- ribon ucleo prote in) Polym yosit is and/o r [place] tomyo sitis 20% ----- ----- ----- ----- - ----- ----- ----- ----- ---- ----- ---- Scl-7 0 (anti DNA Scler oderm a (diff use) 20 - 35% topoi monica ase) Crest 13% ----- ----- ----- ----- - ----- ----- ----- ----- ---- ----- ---- Lacey-1 Polym yosit is and/o r [place] tomyo sitis 20 - 40% ----- ----- ----- ----- - ----- ----- ----- ----- ---- ----- ---- Centr omere B Scler oderm a - Crest varia nt 80% Not Available [facility] ([facility]) [address] [place], [address], 07/06/2023 16:13:30 07/05/19 24 07/06/2023 LIPID PANEL cholesterol, total 199 mg/dL 100-19 9 Not Available [facility] ([facility]) [address] [facility], [place], [address], 07/06/2023 16:13:32 07/05/19 24 07/06/2023 LIPID PANEL triglyceride s 326 mg/dL 0-149 above high normal Not Available [facility] ([facility]) [address] [facility] [place], [address], 07/06/2023 16:13:32 07/05/19 24 07/06/2023 LIPID PANEL HDL cholesterol 37 mg/dL >39 below low normal Not Available [facility] ([facility]) [address] [facility] [place], [address], 07/06/2023 16:13:32 07/05/19 24 07/06/2023 LIPID PANEL VLDL cholesterol kelle 56 mg/dL 5-40 above high normal Not Available [facility] ([facility]) [address] [facility] [place], [address], 07/06/2023 16:13:32 07/05/19 24 07/06/2023 LIPID PANEL LDL chol calc ([facility]) 106 mg/dL 0-99 above high normal Not Available [facility] ([facility]) [address] [place], [address], 07/06/2023 16:13:32 07/05/19 24 07/06/2023 COMP. METAB OLIC PANEL (14) glucose 85 mg/dL 70-99 Not Available [facility] ([facility]) [address] [place], [address], 07/06/2023 16:13:33 07/05/19 24 07/06/2023 COMP. METAB OLIC PANEL (14) BUN 9 mg/dL 6-20 Not Available [facility] ([facility]) [address] [place], [address], 07/06/2023 16:13:33 07/05/19 24 07/06/2023 COMP. METAB OLIC PANEL (14) creatinine 0.77 mg/dL 0.57-1 .00 Not Available [facility] ([facility]) [address] [place], [address], 07/06/2023 16:13:33 07/05/19 24 07/06/2023 COMP. METAB OLIC PANEL (14) eGFR 110 mL/mi n/1.7 3 >59 Not Available [facility] ([facility]) [address] [facility], [place], [address], 07/06/2023 16:13:33 07/05/19 24 07/06/2023 COMP. METAB OLIC PANEL (14) BUN/creatini ne ratio 12 9-23 Not Available [facility] ([facility]) [address] [facility], [place], [address], 07/06/2023 16:13:33 07/05/19 24 07/06/2023 COMP. METAB OLIC PANEL (14) sodium 142 mmol/ L 134-14 4 Not Available [facility] ([facility]) [address] [facility], [place], [address], 07/06/2023 16:13:33 07/05/19 24 07/06/2023 COMP. METAB OLIC PANEL (14) potassium 4.2 mmol/ L 3.5-5. 2 Not Available [facility] ([facility]) [address] [facility], [place], [address], 07/06/2023 16:13:33 07/05/19 24 07/06/2023 COMP. METAB OLIC PANEL (14) chloride 101 mmol/ L 96-106 Not Available [facility] ([facility]) [address] [facility], [place], [address], 07/06/2023 16:13:33 07/05/19 24 07/06/2023 COMP. METAB OLIC PANEL (14) carbon dioxide, total 24 mmol/ L 20-29 Not Available [facility] ([facility]) [address] [facility], [place], [address], 07/06/2023 16:13:33 07/05/19 24 07/06/2023 COMP. METAB OLIC PANEL (14) calcium 10.1 mg/dL 8.7-10 .2 Not Available [facility] ([facility]) [address], [place], [address], 07/06/2023 16:13:33 07/05/19 24 07/06/2023 COMP. METAB OLIC PANEL (14) protein, total 7.5 g/dL 6.0-8. 5 Not Available [facility] ([facility]) [address], [place], [address], 07/06/2023 16:13:33 07/05/19 24 07/06/2023 COMP. METAB OLIC PANEL (14) albumin 4.6 g/dL 4.0-5. 0 Not Available [facility] ([facility]) [address], [place], [address], 07/06/2023 16:13:33 07/05/19 24 07/06/2023 COMP. METAB OLIC PANEL (14) globulin, total 2.9 g/dL 1.5-4. 5 Not Available [facility] ([facility]) [address] [place], [address], 07/06/2023 16:13:33 07/05/19 24 07/06/2023 COMP. METAB OLIC PANEL (14) A/G ratio 1.6 1.2-2. 2 Not Available [facility] ([facility]) [address] [facility], [place], [address], 07/06/2023 16:13:33 07/05/19 24 07/06/2023 COMP. METAB OLIC PANEL (14) bilirubin, total 0.4 mg/dL 0.0-1. 2 Not Available [facility] ([facility]) [address] [place], [address], 07/06/2023 16:13:33 07/05/19 24 07/06/2023 COMP. METAB OLIC PANEL (14) alkaline phosphatase 63 IU/L 44-121 Not Available [facility] ([facility]) [address] [facility], [place], [address], 07/06/2023 16:13:33 07/05/19 24 07/06/2023 COMP. METAB OLIC PANEL (14) AST (SGOT) 26 IU/L 0-40 Not Available [facility] ([facility]) [address] [facility], [place], [address], 07/06/2023 16:13:33 07/05/19 24 07/06/2023 COMP. METAB OLIC PANEL (14) ALT (SGPT) 30 IU/L 0-32 Not Available [facility] ([facility]) [address] [facility], [place], [address], 07/06/2023 16:13:33 07/05/19 24 07/06/2023 TSH RFX ON ABNOR MAL TO FREE T4 TSH 1.310 uIU/m L 0.450- 4.500 Not Available [facility] ([facility]) [address] [facility], [place], [address], 07/06/2023 16:13:35 07/05/19 24 07/06/2023 VITAM IN B12 AND FOLAT E vitamin B12 429 pg/mL 232-12 45 Not Available [facility] ([facility]) [address] [facility], [place], [address], 07/06/2023 16:13:36 07/05/19 24 07/06/2023 VITAM IN B12 AND FOLAT E folate (folic acid), serum 17.5 NG/mL >3.0 A serum folat e joce ntrat ion of less than 3.1 ng/mL is consi dered to repre sent clini kelle defic iency . Not Available [facility] ([facility]) [address] [facility], [place], [address], 07/06/2023 16:13:36 07/05/19 24 07/06/2023 CBC, NO DIFFE RENTI AL/PL ATELE T WBC 5.6 x10e3 /uL 3.4-10 .8 Not Available [facility] ([facility]) [address] [place], [address], 07/06/2023 16:13:37 07/05/19 24 07/06/2023 CBC, NO DIFFE RENTI AL/PL ATELE T RBC 4.65 x10e6 /uL 3.77-5 .28 Not Available [facility] ([facility]) [address] [facility], [place], [address], 07/06/2023 16:13:37 07/05/19 24 07/06/2023 CBC, NO DIFFE RENTI AL/PL ATELE T hemoglobin 13.7 g/dL 11.1-1 5.9 Not Available [facility] ([facility]) [address] [facility], [place], [address], 07/06/2023 16:13:37 07/05/19 24 07/06/2023 CBC, NO DIFFE RENTI AL/PL ATELE T hematocrit 41.6 % 34.0-4 6.6 Not Available [facility] ([facility]) [address] [place], [address], 07/06/2023 16:13:37 07/05/19 24 07/06/2023 CBC, NO DIFFE RENTI AL/PL ATELE T MCV 90 fL 79-97 Not Available [facility] ([facility]) [address] [place], [address], 07/06/2023 16:13:37 07/05/19 24 07/06/2023 CBC, NO DIFFE RENTI AL/PL ATELE T MCH 29.5 pg 26.6-3 3.0 Not Available [facility] ([facility]) [address] [place], [address], 07/06/2023 16:13:37 07/05/19 24 07/06/2023 CBC, NO DIFFE RENTI AL/PL ATELE T MCHC 32.9 g/dL 31.5-3 5.7 Not Available [facility] ([facility]) [address] [facility], [place], [address], 07/06/2023 16:13:37 07/05/19 24 07/06/2023 CBC, NO DIFFE RENTI AL/PL ATELE T RDW 12.0 % 11.7-1 5.4 Not Available [facility] ([facility]) [address] [facility], [place], [address], 07/06/2023 16:13:37 07/05/19 24 07/06/2023 SEDIM ENTAT ION RATE- WESTE RGREN sedimentatio n rate-westerg kong 5 mm/HR 0-32 Not Available [facility] ([facility]) [address] [facility], [place], [address], 07/06/2023 16:13:38 07/05/19 24 07/06/2023 C-VTIO CTIVE PROTE IN, QUANT C-reactive protein, quant 3 mg/L 0-10 Not Available [facility] ([facility]) [address] [facility], [place], [address], 07/06/2023 16:13:39 07/05/19 24 07/06/2023 VITAM IN D, 25-HY DROXY vitamin D, 25-hydroxy 36.9 NG/mL 30.0-1 00.0 Vitam in D defic iency has been defin ed by the Insti tute of Medic ine and an Endoc rine Socie ty pract ice guide line as a level of serum 25-OH vitam in D less than 20 ng/mL (1,2) . The Endoc rine Socie ty went on to furth er defin e vitam in D insuf ficie ncy as a level betwe en 21 and 29 ng/mL (2). 1. IOM (Inst itute of Medic ine). 2010. Dieta ry refer sammye yeison es for calci um and D. Annel briggs [place]: The Natio nal [facility] Press . 2. Jennifer powers MF, Kellie rocha [place], Tamela off-F errar i WILCOX, et al. Evalu ation , treat ment, and preve ntion of vitam in D defic iency : an Endoc rine Socie ty clini kelle pract ice guide line. JCEM. 2010; 96(7) :1911 -30. Not Available [facility] ([facility]) [address] [facility], [place], [address], 07/06/2023 16:13:40 Result Notes None recorded. Problems Name Problem SNOMED Code Status Onset Date Resolution Date Notes Provider Name and Address Organization Details Recorded Time Overweight 061481979 Active 2023 Loli Tovar APN, KASH-C Attn: Rubio babs,[address] [facility], [place], [address], [facility] 4 14:21:19 Gynecomastia 9617249 Active 2023 Loli Tovar APN, FNP-[place] Attn: Rubio brice,[address] [facility], [place], [address], [facility] 4 14:36:56 Problem Notes None recorded. Procedures Surgical History Date Name Laterality Status Provider Name and Address Organization Details Recorded Time 3 colonoscopy completed DAIN Goldstein [facility] 07/05/2023 14:15:10 1 Tonsillectomy completed Yasemin Ferrer Katiuska [facility] 07/05/2023 14:13:43 Imaging Results None recorded. Procedure Notes None recorded. Medical Equipment None Reported. Allergies No known drug allergies Medications Name Sig Start Date Stop Date Status Note LastModified by Organization Details LastModified Time amoxicillin 500 mg capsule TAKE 1 CAPSULE BY MOUTH EVERY 8 HOURS active Not Available Not Available No t Available doxycycline hyclate 100 mg capsule TAKE 1 CAPSULE BY MOUTH TWICE DAILY FOR 10 DAYS 07/04 completed Not Available Not Available Not Available benzonatate 200 mg capsule TAKE 1 CAPSULE BY MOUTH THREE TIMES DAILY NEEDED FOR COUGH 07/04 completed Not Available Not Available Not Available prednisone 20 mg tablet TAKE 1 TABLET BY MOUTH TWICE DAILY FOR 5 DAYS 07/04 completed Not Available Not Available Not Available phentermine 15 mg capsule 07/04 completed Not Available Not Available Not Available hydrocortis one 2.5 % topical cream with perineal applicator APPLY A SMALL AMOUNTH INTO RECTUM VIA APPLICATO R AND ALSO A SMALL AMOUNTH EXTERNALL Y TO RECTUM TWICE DAILY FOR HEMORRHOI D MANAGEMEN T 07/04 completed Not Available Not Available Not Available amoxicillin 875 mg tablet TAKE 1 TABLET BY MOUTH EVERY 12 HOURS active Not Available Not Available No t Available polyethylen e glycol 3350 17 gram/dose oral powder TAKE 1 CAPFUL EVERY DAY NEEDED FOR CONSTPATI ON MANAGEMEN T 07/04 completed Not Available Not Available Not Available methylpredn isolone 4 mg tablets in a dose pack FOLLOW PACKAGE DIRECTION S 07/04 completed Not Available Not Available Not Available albuterol sulfate HFA 90 mcg/actuati on aerosol inhaler INHALE 2 PUFFS BY MOUTH EVERY 4 TO 6 HOURS 07/04 completed Not Available Not Available Not Available hydroxyzine pamoate 25 mg capsule TAKE 1 CAPSULE BY MOUTH NEEDED FOR ANXIETY 07/04 completed Not Available Not Available Not Available Estarylla 0.25 mg-35 mcg tablet TAKE 1 TABLET BY MOUTH DAILY active Not Available Not Available No t Available selenium sulfide 2.5 % lotion APPLY TO WET SCALP BY TOPICAL ROUTE ONCE WEEKLY WORK INTO A FULL LATHER, LEAVE ON SCALP FOR 2-3 MINUTES, RINSE THOROUGHL Y, AND THEN PAT DRY active Not Available Not Available No t Available Vitals Date Recorded Body weight Body mass index (BMI) Body height Oxygen saturation Oxygen saturation in Arterial blood by Pulse oximetry Heart rate Respiratory rate Body temperature Systolic blood pressure Diastolic blood pressure Provider Name and Address Organization Details Last Updated DateTime 4 [address].2 2 g 29.1 kg/m2 154.94 cm 98 % 98 % 72 /min 16 /min 98.5 [degF] 120 mm[Hg] 78 mm[Hg] DAIN Goldstein [place] - SIF 14:16:46 Social History Question Answer Notes LastModified by Organizat ion Details LastModified Time Tobacco Smoking Status Never Smoker DAIN Goldstein, [place] - [place] 07/05/2023 14:12:43 What Is Your Level Of Alcohol Consumption? None Information not available 07/05/2023 Are You Blind Or Do You Have Difficulty Seeing? No Information n ot available 07/05/2023 What Is Your Level Of Caffeine Consumption? Occasional Information not available 07/05/2023 In The 14 Days Before Symptom Onset, Have You Had Close Contact With A Laboratory-confirm ed COVID-19 While That Case Was Ill? No Information n ot available 07/05/2023 In The 14 Days Before Symptom Onset, Have You Had Close Contact With A Person Who Is Under Investigation For COVID-19 While That Person Was Ill? No Information not available 07/05/2023 Have You Been To An Area Known To Be High Risk For COVID-19? No Information not available 07/05/2023 Are You Currently Employed? No Information not available 07/05/2023 Are You Deaf Or Do You Have Serious Difficulty Hearing? No Information not available 07/05/2023 What Type Of Diet Are You Following? REGULAR Information n ot available 07/05/2023 Are There Any Guns Present In Your Home? Yes Information not available 07/05/2023 What Was The Date Of Your Most Recent Tobacco Screening? 07/05/2023 Information not available 07/05/2023 How Many Children Do You Have? 1 Information not available 07/05/2023 What Is Your Relationship Status? Single Information not available 07/05/2023 Do You Use Your Seat Belt Or Car Seat Routinely? Yes Information not available 07/05/2023 Are You Sexually Active? Yes Information not available 07/05/2023 Do You Have Smoke And Carbon Monoxide Detectors In Your Home? Yes Information not available 07/05/2023 Are You Passively Exposed To Smoke? No Information no t available 07/05/2023 Do You Feel Stressed (tense, Restless, Nervous, Or Anxious, Or Unable To Sleep At Night)? [id number] Information not available 07/05/2023 Do You Use Any Illicit Or Recreational Drugs? No Information not available 07/05/2023 Do You Use Sunscreen Routinely? Yes Information not available 07/05/2023 Has Tobacco Cessation Counseling Been Provided? Yes Information not available 07/05/2023 On What Date Was Tobacco Cessation Counseling Provided? 07/05/2023 Information not available 07/05/2023 Do You Or Have You Ever Used Any Other Forms Of Tobacco Or Nicotine? No Information not available 07/05/2023 Sex: Female Functional Status Question Answer Note LastModified by Organizat ion Details LastModified Time Are you able to care for yourself? Yes Information not available 07/05/2023 What is your exercise level? Occasional Information not available 07/05/2023 Mental Status None recorded. Family History Relationship Description Onset Age of this Age Resolved Age Notes LastModified by Organization Details LastModified Time Father Hypertensive disorder [email or web address] Not available 06/21 14:11:56 Paternal Grandfather Malignant neoplasm of liver [email or web address] Not available 06/21 14:12:13 Medical History Condition Response Coronary Artery Disease N Other N High Blood Pressure N Atrial Fibrillation N Thyroid Problems N Kidney or Bladder Problems N GI Problems N Depression N COPD N Blood Clots N Skin Problems Y Eating Disorder N Anemia N Heart Attack ([place]) N Anxiety Disorder N Diabetes N Muscle, Joint, or Bone Problems N Arthritis N Seizures/Epilepsy N Acid Reflux (GERD) N Cancer N Stroke N Asthma N Allergies N Substance Abuse N High Cholesterol N Hepatitis N Liver Disease N Schizophrenia N Heart Failure N Gynecological History Statement/Question Response Date of LMP 07/02/2023 Menses Monthly Y Date of Last Pap Smear Age at Menarche 16 Current Control Method BCPs LMP Definite Obstetrics History GPAL:G 1 P 1 0 0 1 Type Value Full Term 1 Living 1 Total 1 Immunizations Vaccine Type Date Status Note Provider Nam e and Address Organization Details Recorded Time Hib, unspecified formulation 9 completed Loli Tovar, PATTERN MOLDER, LITIGATOR-C Attn: Accounting,[address] [place], [address], [facility] 07/05/2023 14:22:36 Hib, unspecified formulation 9 completed Loli Tovar, PATTERN MOLDER, LITIGATOR-C Attn: Accounting,[address] [facility], [place], [place], [address] [place] [address], [facility] 07/05/2023 14:22:36 Hib, unspecified formulation 2 completed Loli Tovar, PATTERN MOLDER, LITIGATOR-C Attn: Accounting,[address] [facility], [place], [place], [address] [place] [address], [facility] 07/05/2023 14:22:36 Hib-Hep B 8 completed Loli Tovar, PATTERN MOLDER, LITIGATOR-C Attn: Accounting,[address] [facility], [place], [place], [address] [place] [address], [facility] 07/05/2023 14:22:36 meningococcal B, OMV 6 completed Loli Tovar, PATTERN MOLDER, LITIGATOR-C Attn: Accounting,20 [address] [facility], [place], [place], [address] [place] [address], [facility] 07/05/2023 14:22:36 HPV9 6 completed Loli Tovar, PATTERN MOLDER, LITIGATOR-C Attn: Accounting,20 [address] [facility], [place], [place], [address] [place] [address], [facility] 07/05/2023 14:22:36 IPV 9 completed Loli Tovar, PATTERN MOLDER, LITIGATOR-C Attn: Accounting,20 [address] [facility], [place], [place], [address] [place] [address], [facility] 07/05/2023 14:22:36 IPV 9 completed Loli Tovar, PATTERN MOLDER, LITIGATOR-C Attn: Accounting,20 [address] [facility], [place], [place], [address] [place] [address], [facility] 07/05/2023 14:22:36 IPV 4 completed Loli Tovar, PATTERN MOLDER, LITIGATOR-C Attn: Accounting,20 [address] [facility], [place], [place], [address] [place] [address], [facility] 07/05/2023 14:22:36 IPV 8 completed Loli Tovar, PATTERN MOLDER, LITIGATOR-C Attn: Accounting,20 [address] [facility], [place], [address] [place] [address], [facility] 07/05/2023 14:22:36 MMR 0 completed Loli Tovar, PATTERN MOLDER, LITIGATOR-C Attn: Accounting,20 [address] [facility], [place], [address] [place] [address], [facility] 07/05/2023 14:22:36 MMR 2 completed Loli Tovar, PATTERN MOLDER, LITIGATOR-C Attn: Accounting,20 [address] [facility], [place], [address] [place] [address], [facility] 07/05/2023 14:22:36 Tdap 4 completed Loli Tovar, PATTERN MOLDER, LITIGATOR-C Attn: Accounting,20 [address] [facility], [place], [address] [place] [address], [facility] 07/05/2023 14:22:36 varicella 2 completed Loli Tovar, PATTERN MOLDER, LITIGATOR-C Attn: Accounting,20 [address] [facility], [place], [address] [place] [address], [facility] 07/05/2023 14:22:36 varicella 4 completed Loli Tovar, PATTERN MOLDER, LITIGATOR-C Attn: Accounting,20 [address] [facility], [place], [address] [place] [address], [facility] 07/05/2023 14:22:36 varicella 4 completed Loli Tovar, PATTERN MOLDER, LITIGATOR-C Attn: Accounting,20 [address] [facility], [place], [address] [place] [address], [facility] 07/05/2023 14:22:36 Hep B, unspecified formulation 9 completed Loli Tovar, PATTERN MOLDER, LITIGATOR-C Attn: Accounting,20 [address] [facility], [place], [address] [place] [address], [facility] 07/05/2023 14:22:36 Hep B, unspecified formulation 8 completed Loli Tovar, PATTERN MOLDER, LITIGATOR-C Attn: Accounting,20 [address] [facility], [place], [address] [place] [address], [facility] 07/05/2023 14:22:36 meningococcal MCV4P 4 completed Loli Tovar, PATTERN MOLDER, LITIGATOR-C Attn: Accounting,20 [address] [facility], [place], [address] [place] [address], [facility] 07/05/2023 14:22:36 DTaP 9 completed Loli Tovar, PATTERN MOLDER, LITIGATOR-C Attn: Accounting,20 [address] [facility], [place], [address] [place] [address], [facility] 07/05/2023 14:22:36 DTaP 9 completed Loli Tovar, PATTERN MOLDER, LITIGATOR-C Attn: Accounting,20 [address] [facility], [place], [address], [facility] 07/05/2023 14:22:36 DTaP 8 completed Loli Tovar, PATTERN MOLDER, LITIGATOR-C Attn: Accounting,20 [address] [facility], [place], [address] [place] [address], [facility] 07/05/2023 14:22:36 DTaP, unspecified formulation 4 completed Loli Tovar, PATTERN MOLDER, LITIGATOR-C Attn: Accounting,20 [address] [facility], [place], [address], [facility] 07/05/2023 14:22:36 DTaP, unspecified formulation 2 completed Loli Tovar, PATTERN MOLDER, LITIGATOR-C Attn: Accounting,20 [address] [facility], [place], [address], [facility] 07/05/2023 14:22:36 Influenza, live, quadrivalent, intranasal 4 completed Loli Tovar, PATTERN MOLDER, LITIGATOR-C Attn: Accounting,20 [address] [facility], [place], [address], [facility] 07/05/2023 14:22:36 Past Encounters Encounter ID Performer Location Encounter Start Date Encounter Closed Date Diagnosis/Indication Diagnosis SNOMED-CT Code Diagnosis ICD10 Code Diagnosis Note [id number] Loli Tovar APN, FNP-C [facility] (Adult Med) [address] [place] [address] 07/05/2023 13:47:07 07/20/2023 15:05:55 Adult health examination 461973781 Z00.01 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 Overweight 456505589 E66 .3 advised low fat, low cholestero l, low carb diet, regular exercise and weight reduction. Gynecomastia 5132849 N62 has done PT for upper back and shoulder pain- was done [facility] in [place] Fatigue 01526894 R53.83 will check labs Pityriasis versicolor 56 404257 B36.0 hypopigmen you to back and chest Positive s creening for depression on PHQ-9 (Patient Health Questionnaire 9) [id number] 80134 Z13.31 currently sees a counselor for this, Cervical lymphadenopathy 047728347 R59.0 will check labs, Health Concerns Section Related Observation LastModified by Organization Detai ls LastModified Time None Recorded Concern Status LastModified by Organization Details LastModified Time None Recorded Advance Directives Directive None Recorded Payers Encounter Date Sequence Insurance Name Policy Number Policy Conde Covered Member ID Conde Member ID Guarantor Name 07/05/2023 1 [facility] (MEDICAID HMO) [id number] Mark Yemassee [id number] Mark Yemassee Notes Date Note Type Note Provider Name and Address Organization Details Recorded Time 07/05/2023 text/html transferring za [place]. wants referral for breast reduction- has done PT for upper back and shoulder pain- was done [facility] in [place], has pain with working out, wears sports bras but still has pain Pt c/o knot under chin- painful sometimes. States she talked with her old pcp about it and was given an XR but did not get done. Pt c/o white and red bumps on back and chest- was given lotion to put on before shower that helped some.selenium sulfide 2.5 % lotion Wants vitamins check- always tired pt c/o random blurred vision on and off. has not noticed a pattern Loli Tovar, PATTERN MOLDER, LITIGATOR-C Attn: Accounting,[address] [facility], [place], [address], [facility] 07/20/2023 10:14:44 OBGyn Episode No OBEpisode recorded.
--- OUTSIDE RECORDS SUMMARY | 2024-03-27 12:17 | XMS_ITS | Referral Summary ---
Author Organization [facility] Address [address] [place] [address] Care Team Providers Care Slab Miller Operator Name Role Phone Rip Loli MCDANIEL Primary Care Provider [phone] Loli Erwin Unavailable [phone] Source Comments [facility],non-[facility]et [place] [facility]iliates and Associated Physician Practices is amultiple site organization consisting of ambulatory clinics and hospital sitesin [place], [place], [place] and [place]. This disclosure is being madepursuant to the Care Everywhere program and may not contain all information available regarding this patient. Last updated 17.[facility] Encounters Date Type Department Care Team Description 02/06/2024 3:15 PM WOODWIND REEDS CUTTER - 02/06/2024 11:59 PM WOODWIND REEDS CUTTER Hospital Encounter [facility] Imaging Services [address] [place] [address] Nithya Pierce MD Rheumatology Discharge Disposition: Home or Self Care 02/06/2024 1:40 PM WOODWIND REEDS CUTTER Office Visit [facility] - Rheumatology [address], [address] [place] [address] Nithya Pierce MD Rash (Primary Dx); Urticaria; Other migraine without status migrainosus, not intractable; Low back pain, unspecified back pain laterality, unspecified chronicity, unspecified whether sciatica present; Fatigue, unspecified type; Positive double stranded DNA antibody test; Rectal bleeding from Last 3 Months Allergies No known active allergies Medications * Be aware that medications may not be up to date on this document. Alwaysverify current medications with the patient. Medication Sig Dispensed Refills Start Date End Date Status Estarylla 0.25-35 MG-MCG tablet Take 1 (one) tablet by mouth once daily Active Social History Tobacco Use Types Packs/Day Years Used Date Smoking Tobacco: Never Assessed Sex and Gender Information Value Date Recorded Sex Assigned at Not on file Gender Identity Not on file Sexual Orientation Not on file Last Filed Vital Signs Vital Sign Reading Time Taken Comments Blood Pressure 104/62 02/06/2024 1:49 PM WOODWIND REEDS CUTTER Pulse 82 02/06/2024 1:49 PM WOODWIND REEDS CUTTER Temperature 36.8 ??C (98.2 ??F) 02/06/2024 1:49 PM CS T Respiratory Rate 16 02/06/2024 1:49 PM WOODWIND REEDS CUTTER Oxygen Saturation 97% 02/06/2024 1:49 PM WOODWIND REEDS CUTTER Inhaled Oxygen Concentration - - Weight 67.1 kg (148 lb) 02/06/2024 1:49 PM WOODWIND REEDS CUTTER Height 154.9 cm (5' 1 ) 02/06/2024 1:49 PM WOODWIND REEDS CUTTER Body Mass Index 27.96 02/06/2024 1:49 PM WOODWIND REEDS CUTTER Plan of Treatment Upcoming Encounters Date Type Department Care Team (Late st Contact Info) Description 03/27/2024 3:40 PM WOODWIND REEDS CUTTER Office Visit [facility] Medical [facility] - Rheumatology [address] [place] [id number] Nithya Pierce MD [address] [place] [phone] 06/26/2024 2:10 PM CDT Office Visit [facility] - Dermatology [address] [place] [address], [place] [address] Brunilda Cuello MD [address] [place], [place] [address] [address] Procedures Procedure Name Priority Date/Time Associated Diagnosis Comments XR SI JOINTS 3VW OR MORE Routine 02/06/2024 3:32 PM WOODWIND REEDS CUTTER Low back pain, unspecified back pain laterality, unspecified chronicity, unspecified whether sciatica present INFLAMMATORY BOWEL DISEASE PANEL Routine 02/06/2024 3:08 PM WOODWIND REEDS CUTTER Rectal bleeding CEDRICK PANEL COMPREHENSIVE Routine 02/06/2024 3:06 PM WOODWIND REEDS CUTTER Positive double stranded DNA antibody test CYCLIC CITRULLINATED PEPTIDE(CCP) AB IGG Routine 02/06/2024 3:06 PM WOODWIND REEDS CUTTER Positive double stranded DNA antibody test VITAMIN B12 Routine 02/06/2024 3:05 PM WOODWIND REEDS CUTTER Fatigue, unspecified type VITAMIN D 25-HYDROXY Routine 02/06/2024 3:05 PM WOODWIND REEDS CUTTER Fatigue, unspecified type COMPLEMENT C3 C4 PANEL Routine 3:05 PM WOODWIND REEDS CUTTER Positive double stranded DNA antibody test DNA ANTIBODY DS CRITHIDIA IFA Routine 02/06/2024 3:05 PM WOODWIND REEDS CUTTER Positive double stranded DNA antibody test CEDRICK BLOOD SCREEN W/REFLEX TITER Routine 02/06/2024 3:05 PM WOODWIND REEDS CUTTER Positive double stranded DNA antibody test C-REACTIVE PROTEIN Routine 02/06/2024 3: 05 PM WOODWIND REEDS CUTTER Positive double stranded DNA antibody test ERYTHROCYTE SEDIMENTATION RATE Routine 02/06/2024 3:05 PM WOODWIND REEDS CUTTER Positive double stranded DNA antibody test COMPREHENSIVE METABOLIC PANEL Routine 02/06/2024 3:05 PM WOODWIND REEDS CUTTER Positive double stranded DNA antibody test CBC W AUTO DIFFERENTIAL Routine 02/06/2024 3:05 PM WOODWIND REEDS CUTTER Positive double stranded DNA antibody test from Last 3 Months Results * XR SI Joints 3Vw or More (02/06/2024 3:32 PM WOODWIND REEDS CUTTER) Anatomical Region Laterality Modality Pelvis, Lower Extremity Radiogra phic Imaging 02/07/2024 9:36 AM WOODWIND REEDS CUTTER Impressions 02/07/2024 9:36 AM WOODWIND REEDS CUTTER IMPRESSION: Radiographically normal sacroiliac joints. > Interpreting Provider: Larissa Salamanca MD on 02/07/2024 9:36 AM Narrative 02/07/2024 9:36 AM WOODWIND REEDS CUTTER PROCEDURE: ??XR SI JOINTS 3VW OR MORE [...] INFLAMMATORY BOWEL DISEASE PANEL (02/06/2024 3:08 PM WOODWIND REEDS CUTTER) Saccharomyces cerevisiae Antibody IgG 22.2 0.0 - [...] BLOOD SPECIMEN / Unknown 02/06/2024 3:08 PM WOODWIND REEDS CUTTER 02/06/2024 Narrative [facility] ACCOUNT BILL - 02/09/2024 3:08 PM WOODWIND REEDS CUTTER Performed at: ??01 - [facility] [address] ??[id number] Retail Sales Advisor: Sarah Phillips MD, Phone: ??[phone] Performed at: ??02 - [facility] [place] [address] [place], [place] ??[id number] Retail Sales Advisor: Romel Gorman PhD, Phone: ??[phone] Nithya Pierce MD LAB - CHEMISTRY CHASE WHEELER [facility] ACCOUNT BILL [address] [place] [address] * (ABNORMAL) CEDRICK PANEL COMPREHENSIVE (02/06/2024 3:06 PM WOODWIND REEDS CUTTER) Anti-dsDNA Quantitative 10(H) 0 - 9 IU/mL [facility] ACCOUNT BILL Comment: ? Negative ?<5 ? Equivocal ??5 - 9 ? Positive ?>9 DESK TOP PUBLISHER Antibody <0.2 0.0 - 0.9 AI [facility] [...] Sm (anti-Cuello) ?SLE ?15 - 30% ?--------- DESK TOP PUBLISHER ?Mixed Connective Tissue ? Disease ? 95% [...] BLOOD SPECIMEN / Unknown 02/06/2024 3:06 PM WOODWIND REEDS CUTTER 02/06/2024 Narrative [facility] ACCOUNT BILL - 02/07/2024 1:07 PM WOODWIND REEDS CUTTER Performed at: ??01 - [facility] [place] [address] [place], [place] ??[id number] Retail Sales Advisor: Romel Gorman PhD, Phone: ??[phone] Nithya Pierce MD LAB - SEROLOGY ORDER SARAH Performing Organization Address [facility] de Phone Number [facility] ACCOUNT BILL [address] [place] [address] * (ABNORMAL) CYCLIC CITRULLINATED PEPTIDE(CCP) AB IGG (02/06/2024 3:06 PM WOODWIND REEDS CUTTER) CCP Antibodies IgG/IgA 45(H) <20 Units [facility] ACCOUNT BILL Comment: ?Negative: <20 ? Weak Positive: 20-39 ?Moderate Positive: 40-59 ??Strong Positive: >59 Blood BLOOD SPECIMEN / Unknown 02/06/2024 3:06 PM WOODWIND REEDS CUTTER 02/06/2024 Narrative [facility] ACCOUNT BILL - 02/10/2024 6:10 AM WOODWIND REEDS CUTTER Performed at: ??01 - [facility] [address] [place], [place] ??[id number] Retail Sales Advisor: Bennie Chavez MD, Phone: ??[phone] Nithya Pierce MD [facility] Performing Organization Address [facility] de Phone Number [facility] ACCOUNT BILL [address] [place] [address] * DNA ANTIBODY DS CRITHIDIA IFA (02/06/2024 3:05 PM WOODWIND REEDS CUTTER) dsDNA Antibody Crithidia IFA Negative Negative [facility] ACCOUNT BILL Blood BLOOD SPECIMEN / Unknown 02/06/2024 3:05 PM WOODWIND REEDS CUTTER 02/06/2024 Narrative [facility] ACCOUNT BILL - 02/08/2024 1:08 PM WOODWIND REEDS CUTTER Performed at: ??01 - [facility] [place] [id number] [place], [place] ??[id number] Retail Sales Advisor: Romel Gorman PhD, Phone: ??[phone] Nithya Pierce MD LAB - SEROLOGY ORDER SARAH [facility] ACCOUNT BILL [address] [place] [address] * C-REACTIVE PROTEIN (02/06/2024 3:05 PM WOODWIND REEDS CUTTER) Pathologist [facility] C-Reactive Protein 0.50 <=0.50 mg/dL [facility] ACCOUNT BILL Blood BLOOD SPECIMEN / Unknown 02/06/2024 3:05 PM WOODWIND REEDS CUTTER 02/06/2024 Narrative [facility] ACCOUNT BILL - 02/06/2024 9:06 PM WOODWIND REEDS CUTTER Performed at: ?? [address] ??[id number] Retail Sales Advisor: Mendoza Ho MD, Phone: ??[phone] Nithya Pierce MD LAB - CHEMISTRY ORDChristine WHEELER Performing Organization Address City/[facility]/ZIP Co de Phone Number [facility] ACCOUNT BILL [address] [place] [address] * CEDRICK BLOOD SCREEN W/REFLEX TITER (02/06/2024 3:05 PM WOODWIND REEDS CUTTER) [facility] CEDRICK Negative Negative [facility] ACCOUNT BILL Comment: Methodology: Indirect Immunofluorescence Assay (IFA) avril Hep-2-Gamma cells. Blood BLOOD SPECIMEN / Unknown 02/06/2024 3:05 PM WOODWIND REEDS CUTTER 02/06/2024 Narrative [facility] ACCOUNT BILL - 02/07/2024 3:08 PM WOODWIND REEDS CUTTER Performed at: ?? [address] ??[id number] Retail Sales Advisor: Mendoza Ho MD, Phone: ??[phone] Nithya Pierce MD LAB - CHEMISTRY CHASE WHEELER [facility] ACCOUNT BILL [address] [place] [address] * VITAMIN D 25-HYDROXY (02/06/2024 3:05 PM WOODWIND REEDS CUTTER) Vitamin D, 25 Hydroxy 40.5 30 - 80 ng/mL [facility] ACCOUNT BILL Comment: Vitamin D Status: ?Deficiency ? <20 ? ng/mL ?Insufficiency ?? 20-30 ??ng/mL ?Sufficiency ? 30-100 ng/mL ?Toxicity ? >100 ?ng/mL Blood BLOOD SPECIMEN / Unknown 02/06/2024 3:05 PM WOODWIND REEDS CUTTER 02/06/2024 Narrative [facility] ACCOUNT BILL - 02/06/2024 11:06 PM WOODWIND REEDS CUTTER Performed at: ?? - [address] ??[id number] Retail Sales Advisor: Menodza Ho MD, Phone: ??[phone] Nithya Pierce MD LAB - [facility]Y [facility]DE [facility] Performing Organization Address City/[facility] Co de Phone Number [facility] ACCOUNT BILL [address] [place] [address] * ERYTHROCYTE SEDIMENTATION RATE (02/06/2024 3:05 PM WOODWIND REEDS CUTTER) Pathologist [facility] Erythrocyte Sedimentation Rate Westergren 1 0 - 20 MM/HR [facility] ACCOUNT BILL Blood BLOOD SPECIMEN / Unknown 02/06/2024 3:05 PM WOODWIND REEDS CUTTER 02/06/2024 Narrative [facility] ACCOUNT BILL - 02/06/2024 9:06 PM WOODWIND REEDS CUTTER Performed at: ?? - [address] ??[id number] Retail Sales Advisor: Mendoza Ho MD, Phone: ??[phone] Nithya Pierce MD LAB - HEMATOLOGY ORD ERABLES Performing Organization Address City/[facility] Co de Phone Number [facility] ACCOUNT BILL [address] [place] [address] * CBC WITH DIFFERENTIAL (02/06/2024 3:05 PM WOODWIND REEDS CUTTER) WBC 7.2 4.0 - 10.7 x10E9/L [facility] [...] BLOOD SPECIMEN / Unknown 02/06/2024 3:05 PM WOODWIND REEDS CUTTER 02/06/2024 Narrative [facility] ACCOUNT BILL - 02/06/2024 9:06 PM WOODWIND REEDS CUTTER Performed at: ??01 - [address] ??[id number] Retail Sales Advisor: Mendoza Ho MD, Phone: ??[phone] Nithya Pierce MD LAB - HEMATOLOGY ORD ERABLES [facility] ACCOUNT BILL [address] [place] [address] * COMPREHENSIVE METABOLIC PANEL (02/06/2024 3:05 PM WOODWIND REEDS CUTTER) Glucose 85 70 - 99 mg/dL [facility] [...] BLOOD SPECIMEN / Unknown 02/06/2024 3:05 PM WOODWIND REEDS CUTTER 02/06/2024 Narrative [facility] ACCOUNT BILL - 02/06/2024 9:06 PM WOODWIND REEDS CUTTER Performed at: ??01 - [address] ??[id number] Retail Sales Advisor: Mendoza Ho MD, Phone: ??[phone] Nithya Pierce MD LAB - CHEMISTRY ORDChristine WHEELER [facility] ACCOUNT BILL [address] [place] [address] * VITAMIN B12 (02/06/2024 3:05 PM WOODWIND REEDS CUTTER) Vitamin B12 275 213 - 816 pg/mL [facility] ACCOUNT BILL Blood BLOOD SPECIMEN / Unknown 02/06/2024 3:05 PM WOODWIND REEDS CUTTER 02/06/2024 Narrative [facility] ACCOUNT BILL - 02/06/2024 11:06 PM WOODWIND REEDS CUTTER Performed at: ??01 [facility] [address] [place], [place] ??[id number] Retail Sales Advisor: Mendoza Ho MD, Phone: ??[phone] Nithya Pierce MD LAB - CHEMISTRY CHASE WHEELER [facility] ACCOUNT BILL [address] [place] [address] * COMPLEMENT C3 C4 PANEL (02/06/2024 3:05 PM WOODWIND REEDS CUTTER) Complement C3 136 82 - 167 mg/dL [facility] ACCOUNT BILL Complement C4 23 12 - 38 mg/dL [facility] ACCOUNT BILL Blood BLOOD SPECIMEN / Unknown 02/06/2024 3:05 PM WOODWIND REEDS CUTTER 02/06/2024 Narrative [facility] ACCOUNT BILL - 02/07/2024 1:07 PM WOODWIND REEDS CUTTER Performed at: ??01 - [facility] [place] [address] [place] [address] ??[id number] Retail Sales Advisor: Romel Gorman PhD, Phone: ??[phone] Nithya Pierce MD LAB - CHEMISTRY CHASE WHEELER [facility] ACCOUNT BILL [address] [place] [address] from Last 3 Months Care Teams Slab Miller Operator Relationship Specialty Start Date End Date Loli Erwin APRN-CNP [address] [place] [address] PCP - General Nurse Practitioner Family 02/09/24 Loli Erwin APRN-CNP [address] [place] [address] Nurse Practitioner Family 02/09/24
--- OUTSIDE RECORDS SUMMARY | 2024-03-27 12:17 | XMS_ITS | Encounter Summary ---
Author Name [facility] Address [address] [place] [address] Care Team Providers Care Research Contracts Supervisor Name Role Phone May Primary Care Provider Unavailabl e Selected Encounter This section includes the information on record at ID for the Encounter. Date/Time Encounter Type Encounter Description Reason Provider Source Nov 15, 2023 02:30 PM EMERGENCY DEPT VISIT LOW [facility] EMERGENCY DEPT ICD-10-CM K08.89 Other specified disorders of teeth and supporting structures LEE BENITO Christine Encounter Template Text not used by ID Assessments - Encounter Diagnoses This section includes the primary and secondary diagnoses documented for the Encounter. Date/Time Primary/Secondary Diagnosis Diagnosis Name Provider Source Nov 15, 2023 03:24 PM PRIMARY Other specified disorders of teeth and supporting structures DINH BENITO [facility] Plan of Treatment: Future Appointments (+ 6 months) and Future Tests (+/- 45 days) The Plan of Treatment section includes future care activities for the patient from all ID treatmentfacilities. This section includes future appointments and future orders which are active, pending or scheduled. Future Appointments This section includes appointments that were scheduled to occur 6 months from the date of the Encounter, up to a maximum of 20 appointments. The data comes from all ID treatment facilities. Appointment Date/Time Appointment Type Appointme nt Facility Name Dec 20, 2023 11:30 AM AMBULATORY - REHAB MEDICIN E [facility] Lab Results: +/- 30 days of the encounter This section includes the Chemistry and Hematology Lab Results on record with ID for the patient. Radiology Reports and Pathology Reports are provided separately, in subsequent sections. Lab Results This section contains the Chemistry/Hematology Results that were resulted 30 days before or 30 daysafter the date of the Encounter. Date/Time Source Result Type Result - Unit Interpretation Reference Range Comment Oct 25, 2023 11:30 AM [facility] SJOGREN'S ANTIBODIES (SSA&SSB) Specimen Type: SERUM Comment: CEDRICK IFA is a first line screen for detecting the presence of up to approximately 150 autoantibodies in various autoimmune diseases. A negative CEDRICK IFA result suggests CEDRICK-associated autoimmune disease is not present at this time, but is not definitive. If there is high clinical suspicion for Sjogren's Syndrome, testing for anti-SS-A/Ro antibody should be considered. Anti-Lacey-1 antibody should be considered for clinically suspected inflammatory myopathies. AC-0: Negative International Consensus on CEDRICK Patterns https://doi.org/ 10.1515/[facility]-201 8-0052 For additional information, please refer to http://education .[employer]/faq/PKA539 (This link is being provided for informational/ educational purposes only.) Test Performed by [facility], [place], [address] [place], [place] Nigel Santo M.D., Ph.D., Director of Laboratories , CLIA [id number] SSA- Reference Range: < 1.0 NEG AI SSB- Reference Range: < 1.0 NEG AI SSB-Test Performed by [facility] [employer], SSB-[place], SSB-[address] [place] [address] SSB-Nigel Santo M.D., Ph.D., Director of Laboratories SSB- , CLIA [id number] Ordering Provider: EARLENE GOMES Report Released Date/Time: Oct 21, 2023 02:07 PM Reporting Lab: [facility] [address] [facility] [address] Performing Lab: [address] [address] SJOGREN'S AB SSA <1.0 SJOGREN'S AB SSB <1.0 Oct 25, 2023 11:30 AM [facility] CEDRICK SCREEN IFA W/REFLEX Specimen Type: SERUM Comment: CEDRICK IFA is a first line screen for detecting the presence of up to approximately 150 autoantibodies in various autoimmune diseases. A negative CEDRICK IFA result suggests CEDRICK-associated autoimmune disease is not present at this time, but is not definitive. If there is high clinical suspicion for Sjogren's Syndrome, testing for anti-SS-A/Ro antibody should be considered. Anti-Lacey-1 antibody should be considered for clinically suspected inflammatory myopathies. AC-0: Negative International Consensus on CEDRICK Patterns https://doi.org/ 10.1515/ccl-201 8-0052 For additional information, please refer to http://education .[employer]/faq/QOD410 (This link is being provided for informational/ educational purposes only.) Test Performed by [facility], [place], [address] [place] [address] Nigel Santo M.D., Ph.D., Director of Laboratories , CLIA [id number] SSA- Reference Range: < 1.0 NEG AI SSB- Reference Range: < 1.0 NEG AI SSB-Test Performed by [facility], [place], SSB-[address] [place] [address] SSB-Nigel Santo M.D., Ph.D., Director of Laboratories SSB- , CLIA [id number] Ordering Provider: EARLENE GOMES Report Released Date/Time: Oct 21, 2023 02:07 PM Reporting Lab: [facility] [address] [facility] [address] Performing Lab: [address] CEDRICK SCREEN Negative Negative Oct 25, 2023 11:30 AM [facility] CBC W/AUTOMATED DIFF Specimen Type: BLOOD No comment entered. Ordering Provider: EARLENE GOMES Report Released Date/Time: Oct 07, 2023 03:44 PM Reporting Lab: [facility] [address] [facility] [address] Performing Lab: [facility] [address] [facility] [address] NUCLEATED RBC/100WBC 0.0 0-9.99 ABSOLUTE EOSINOPHIL COUNT 0.07 10*3/uL 0-0.42 WBC 5.82 10*3/uL 4.86-11.05 RBC 4.29 10*6/uL 3.83-5.71 HGB 12.8 g/dL 12.1-16.9 HCT 36.7 L 37.8-48.4 MCV 85.5 fL 82.3-100.1 MCH 29.8 pg 26.9-33.0 MCHC 34.9 g/dL 31.0-37.0 RDW-CV 11.8 11.0-15.0 NEUTROPHIL PERCENT 62.0 50.0-74.0 LYMPHOCYTE PERCENT 31.1 13.9-36.8 MONOCYTE PERCENT 5.3 L 6.8-12.6 EOSINOPHIL PERCENT 1.2 0.0-4.1 BASOPHIL PERCENT 0.2 0.0-1.8 PLT 314 10*3/uL 150-400 MPV 10.3 fL 8.2-13.6 ABSOLUTE NEUTROPHIL COUNT 3.61 10*3/uL 2.45-8.15 ABSOLUTE MONOCYTE COUNT 0.31 10*3/uL L 0.54-1.16 ABSOLUTE BASOPHIL COUNT 0.01 10*3/uL 0.0-0.03 ABSOLUTE NRBC COUNT 0.00 10*3/uL ABSOLUTE LYMPHOCYTE COUNT 1.81 10*3/uL 1.23-3.89 IMMATURE GRANULOCYTE % 0.2 0.0-4.9 ABSOLUTE IMMATURE GRANULOCYTE 0.01 10*3/uL 0.0-0.49 Oct 25, 2023 11:30 AM [facility] COMPREHENSIVE METABOLIC PANEL Specimen Type: PLASMA Comment: eGFR calculated using the 2020 CKD-EPI Creatinine equation: eGFR and Chronic Kidney Disease (CKD) Stages: >90 mL/min/1.73m~2 Stage 1 - Normal kidney function 89-60 mL/min/1.73m~2 Stage 2 - Mild loss of kidney function 45-59 mL/min/1.73m~2 Stage 3a - Mild to moderate loss of kidney function 30-44 mL/min/1.73m~2 Stage 3B - Moderate to severe loss of kidney function 29-15 mL/min/1.73m~2 Stage 4 - Severe loss of kidney function <15 mL/min/1.73m~2 Stage 5 -Kidney failure Reference: [email or web address] Ordering Provider: EARLENE GOMES Report Released Date/Time: Oct 07, 2023 03:44 PM Reporting Lab: [address] [address] Performing Lab: [address] [address] GLUCOSE 87 mg/dL 74-109 UREA NITROGEN 9 mg/dL 6-20 CREATININE 0.80 mg/dL 0.51-0.95 SODIUM 138 meq/L 136-145 POTASSIUM 4.1 meq/L 3.4-4.5 CHLORIDE 102.6 meq/L 98.0-107.0 CO2 24 meq/L 22-29 CALCIUM 9.1 mg/dL 8.6-10.0 PROTEIN,TOTAL 7.2 g/dL 6.6-8.7 ALBUMIN 4.2 g/dL 3.5-5.2 ALKALINE PHOSPHATASE 59 U/L 35-104 SGOT 20 U/L <=32 TOT. BILIRUBIN 0.38 mg/dL <=1.2 SGPT 13 U/L <=33 GLOMERULAR FILTRATION RATE (eGFR) 104 Oct 25, 2023 11:30 AM [facility] FREE T4 Specimen Type: PLASMA Comment: eGFR calculated using the 2020 CKD-EPI Creatinine equation: eGFR and Chronic Kidney Disease (CKD) Stages: >90 mL/min/1.73m~2 Stage 1 - Normal kidney function 89-60 mL/min/1.73m~2 Stage 2 - Mild loss of kidney function 45-59 mL/min/1.73m~2 Stage 3a - Mild to moderate loss of kidney function 30-44 mL/min/1.73m~2 Stage 3B - Moderate to severe loss of kidney function 29-15 mL/min/1.73m~2 Stage 4 - Severe loss of kidney function <15 mL/min/1.73m~2 Stage 5 -Kidney failure Reference: [email or web address] Ordering Provider: EARLENE GOMES Report Released Date/Time: Oct 07, 2023 03:44 PM Reporting Lab: [address] [address] Performing Lab: [address] [address] FREE T4 1.12 ng/dL 0.93-1.70 Oct 25, 2023 11:30 AM [facility] HEMOGLOBIN A1C Specimen Type: BLOOD Comment: Values obtained from A1C measurements can vary. For typical A1C assays, a reported value of 7.0 could actually be between 6.72 and 7.28 if measured by a reference method. A reported value of 9.0 could actually be between 8.73 and 9.27. Ref: [email or web address] Ordering Provider: EARLENE GOMES Report Released Date/Time: Oct 07, 2023 03:44 PM Reporting Lab: [address] [address] Performing Lab: [address] [address] HEMOGLOBIN A1C 5.0 4.8-5.9 Oct 25, 2023 11:30 AM [facility] LIPID PANEL Specimen Type: PLASMA Comment: eGFR calculated using the 2020 CKD-EPI Creatinine equation: eGFR and Chronic Kidney Disease (CKD) Stages: >90 mL/min/1.73m~2 Stage 1 - Normal kidney function 89-60 mL/min/1.73m~2 Stage 2 - Mild loss of kidney function 45-59 mL/min/1.73m~2 Stage 3a - Mild to moderate loss of kidney function 30-44 mL/min/1.73m~2 Stage 3B - Moderate to severe loss of kidney function 29-15 mL/min/1.73m~2 Stage 4 - Severe loss of kidney function <15 mL/min/1.73m~2 Stage 5 -Kidney failure Reference: [email or web address] Ordering Provider: EARLENE GOMES Report Released Date/Time: Oct 07, 2023 03:44 PM Reporting Lab: [address] [address] Performing Lab: [address] [address] CHOLESTEROL 183 mg/dL <=200 TRIGLYCERIDE 209 mg/dL H <=199 HDL CHOL 45.5 mg/dL >=60 LDL CHOL, CALCULATED 95.7 mg/dL Oct 25, 2023 11:30 AM [facility] TSH Specimen Type: PLASMA Comment: eGFR calculated using the 2020 CKD-EPI Creatinine equation: eGFR and Chronic Kidney Disease (CKD) Stages: >90 mL/min/1.73m~2 Stage 1 - Normal kidney function 89-60 mL/min/1.73m~2 Stage 2 - Mild loss of kidney function 45-59 mL/min/1.73m~2 Stage 3a - Mild to moderate loss of kidney function 30-44 mL/min/1.73m~2 Stage 3B - Moderate to severe loss of kidney function 29-15 mL/min/1.73m~2 Stage 4 - Severe loss of kidney function <15 mL/min/1.73m~2 Stage 5 -Kidney failure Reference: [email or web address] Ordering Provider: EARLENE GOMES Report Released Date/Time: Oct 07, 2023 03:44 PM Reporting Lab: [address] [address] Performing Lab: [address] [address] TSH 1.720 u[IU]/mL 0.270-4.200 Oct 25, 2023 11:30 AM [facility] URIC ACID Specimen Type: PLASMA Comment: eGFR calculated using the 2020 CKD-EPI Creatinine equation: eGFR and Chronic Kidney Disease (CKD) Stages: >90 mL/min/1.73m~2 Stage 1 - Normal kidney function 89-60 mL/min/1.73m~2 Stage 2 - Mild loss of kidney function 45-59 mL/min/1.73m~2 Stage 3a - Mild to moderate loss of kidney function 30-44 mL/min/1.73m~2 Stage 3B - Moderate to severe loss of kidney function 29-15 mL/min/1.73m~2 Stage 4 - Severe loss of kidney function <15 mL/min/1.73m~2 Stage 5 -Kidney failure Reference: [email or web address] Ordering Provider: EARLENE GOMES Report Released Date/Time: Oct 07, 2023 03:44 PM Reporting Lab: [facility] [address] [address] Performing Lab: [address] [address] URIC ACID 4.2 mg/dL 2.4-5.7 Oct 25, 2023 11:30 AM [facility] VITAMIN D, TOTAL Specimen Type: PLASMA Comment: eGFR calculated using the 2020 CKD-EPI Creatinine equation: eGFR and Chronic Kidney Disease (CKD) Stages: >90 mL/min/1.73m~2 Stage 1 - Normal kidney function 89-60 mL/min/1.73m~2 Stage 2 - Mild loss of kidney function 45-59 mL/min/1.73m~2 Stage 3a - Mild to moderate loss of kidney function 30-44 mL/min/1.73m~2 Stage 3B - Moderate to severe loss of kidney function 29-15 mL/min/1.73m~2 Stage 4 - Severe loss of kidney function <15 mL/min/1.73m~2 Stage 5 -Kidney failure Reference: [email or web address] Ordering Provider: EARLENE GOMES Report Released Date/Time: Oct 07, 2023 03:44 PM Reporting Lab: [facility] [address] [address] Performing Lab: [facility] [address] [place] [address] VITAMIN D, TOTAL 37 ng/mL 30-100 Oct 25, 2023 11:30 AM [facility] C-REACTIVE PROTEIN Specimen Type: PLASMA No comment entered. Ordering Provider: EARLENE GOMES Report Released Date/Time: Oct 21, 2023 02:07 PM Reporting Lab: [facility] [address] [facility] [address] Performing Lab: [facility] [address] [place] [address] C-REACTIVE PROTEIN 7.0 mg/L H <=4.9 Oct 25, 2023 11:30 AM [facility] RHEUMATOID FACTOR Specimen Type: PLASMA No comment entered. Ordering Provider: EARLENE GOMES Report Released Date/Time: Oct 21, 2023 02:07 PM Reporting Lab: [facility] [address] [facility] [address] Performing Lab: [facility] [address] [address] RHEUMATOID FACTOR <10 [IU]/mL <=13 Oct 25, 2023 11:30 AM [facility] ESR AUTOMATED Specimen Type: BLOOD No comment entered. Ordering Provider: EARLENE GOMES Report Released Date/Time: Oct 21, 2023 02:07 PM Reporting Lab: [facility] [address] [facility] [address] Performing Lab: [address] [address] ESR AUTOMATED 17 mm/h <=20 Oct 25, 2023 11:29 AM [facility] URINALYSIS Specimen Type: URINE No comment entered. Ordering Provider: EARLENE GOMES Report Released Date/Time: Oct 07, 2023 03:44 PM Reporting Lab: [address] [address] Performing Lab: [address] [address] URINE COLOR Light-Yellow Color less-Y ell URINE APPEAR Clear Clear SPECIFIC GRAVITY 1.015 <=1.025 URINE PH 6.5 5.0-8.0 URINE PROTEIN Negative mg/dL Negative-20 URINE GLUCOSE Normal mg/dL Normal-50 URINE KETONES Negative mg/dL Negative-9 URINE NITRITE Negative Negative SQUAMOUS EPITH CELLS 14 /[HPF] H 0-5 URINE MUCUS RARE /[LPF] NONE S EEN - FEW UROBILINOGEN Normal mg/dL Normal-1.9 URINE WBC 9 /[HPF] H 0-4 URINE BLOOD (SEMI-QN) Negative mg/dL Negative-0. 03 URINE BILIRUBIN (SEMI-QN) Negative mg/dL Negative-0. 4 LEUKOCYTES (SEMI-QN) 500 H Negative-25 Oct 25, 2023 11:29 AM [facility] URINE ALBUMIN/CREATININE RATIO Specimen Type: URINE Comment: Unable to perform calculation - Non Numeric Results Ordering Provider: EARLENE GOMES Report Released Date/Time: Oct 07, 2023 03:44 PM Reporting Lab: [address] [address] Performing Lab: [address] [address] CREATININE 100.0 mg/dL 29.0-226.0 URINE ALBUMIN <12.0 mg/L <=19.9 URINE ALBUMIN/CREATIN INE comment Oct 25, 2023 11:29 AM [facility] URINE TEST Specimen Type: URINE No comment entered. Ordering Provider: EARLENE GOMES Report Released Date/Time: Oct 21, 2023 02:07 PM Reporting Lab: [address] [address] Performing Lab: [address] [address] URINE TEST Negative Negative Vital Signs: All taken on the encounter date This section contains inpatient and outpatient Vital Signs collected on the date of the Encounter. Date/Time Temperature Pulse Blood Pressure Respiratory Rate SP02 Pain Height Weight Body Mass Index Source Nov 15, 2023 02:40 PM 18 8 [facility] Nov 15, 2023 02:39 PM 98.8 74 127/72 100 [facility] Encounter Notes: All associated encounter notes This section contains the clinical notes associated to the Encounter. Date/Time Encounter Note(s) Provider Source Nov 15, 2023 03:23 PM NURSING EMERGENCY DEPT NOTE: LOCAL TITLE: ED NURSE DISPOSITION NOTE STANDARD TITLE: NURSING EMERGENCY DEPT NOTE DATE OF NOTE: NOV 15, 2023@15:23 ENTRY DATE: NOV 15, 2023@15:23:50 AUTHOR: HUSBANDS,ALFIE EXP COSIGNER: URGENCY: STATUS: COMPLETED DISCHARGE DISPOSITION/INSTRUCTIONS Patient is being discharged. Primary Care Provider: EARLENE GOMES 1. Future Appointments: 12/20/2023 11:30 [facility] 04/17/2024 08:45 [facility] PACT 3 TEAM B TRAVEL ASSISTANT 2. Disposition: Discharged home 3. Transported by: ambulatory 4. After care sheet ([facility]) given: . 5. Follow-up activity-limitations: No restrictions 6. Condition on discharge: Satisfactory 7. Pain Assessment/Management: Level of Pain (0-10) at Discharge: Instructions for Relief: 8. Patient Instructions: Return to ER if condition worsens. Take medications as prescribed.Call pharmacy to activate prescription before worm picker.Provide updated medication list to primary care provider.Notify Primary care provider of medication changes, when medications are discontinued, doses change or new medications are added.Carry medication information at all times, including prescribed and over the counter.Read the information packet provided with each new medication.Keep the old pill containers until receiving the next refill so drug name, dosage and instructions can be compared. Notify the prescriber if you do not understand why something changed. 9. Please review the Medication List for accuracy. If you have any questions, please contact the prescribing provider. Active Outpatient Medications (excluding Supplies): Active Outpatient Medications Status 1) ORTHO TRI-CYCLEN TAB,28 TAKE 1 TABLET BY MOUTH ONCE ACTIVE (S) DAILY FOR CONTROL 2) TRIAMCINOLONE 0.1% CREAM APPLY DIRECTED TO ACTIVE AFFECTED AREA TWICE DAILY FOR ATOPIC DERMATITIS. Pending Outpatient Medications Status 1) ACETAMINOPHEN 325MG TAB TAKE TWO TABLETS BY MOUTH PENDING EVERY SIX HOURS NEEDED *CONSULT PHYSICIAN OR PHARMACIST BEFORE TAKING EXTRA ACETAMINOPHEN (TYLENOL) 2) AMOXICILLIN 500MG CAP TAKE ONE CAPSULE BY MOUTH THREE PENDING TIMES DAILY FOR INFECTION Active Non-VA Medications Status 1) Non-VA IBUPROFEN 800MG TAB 800MG MOUTH THREE TIMES ACTIVE DAILY WITH FOOD NEEDED 2) Non-VA MULTIVIT W/MINERALS, CAP/TAB 1 CAP/TAB ACTIVE MOUTH ONCE DAILY 6 Total Medications Allergies/Adverse Reactions: Patient has answered NKA This discharge instruction document was reviewed with time to answer questions, printed, and handed to the patient or their surrogate prior to discharge from the facility. DATE AND TIME OF DISCHARGE: Oct@15:25 /elham/ ALFIE JESSE INTERMEDIATE PACKAGING SPECIALIST Signed: 11/15/2023 15:25 JESSEALFIE SANA HAUSER [facility] Nov 15, 2023 03:19 PM EMERGENCY DEPT NOT E: LOCAL TITLE: EMERGENCY DEPT PROVIDER NOTE STANDARD TITLE: EMERGENCY DEPT NOTE DATE OF NOTE: NOV 15, 2023@15:19 ENTRY DATE: NOV 15, 2023@15:19:22 AUTHOR: DINH BENITO EXP COSIGNER: URGENCY: STATUS: COMPLETED Emergency Dept Provider Note Time patient seen: Oct@15:19 Chief Complaint: Dental abscess History of Present Illness: Patient presents complaining of recurrent right upper jaw dental abscess. No fever or chills. The abscess drained spontaneously recently. That happened once before but it came back. She saw a dentist when she lived in [place], and they said she needed a root canal but she could not afford it. She does not believe she is service-connected for dental care. Denies other complaints. Review of Systems: As per HPI above, otherwise negative. Past Medical/Surgical History: Problem List - Active - NONE FOUND No Surgery Reports found Medications: Medications reviewed: Active Outpatient Medications (excluding Supplies): Active Outpatient Medications Status 1) ORTHO TRI-CYCLEN TAB,28 TAKE 1 TABLET BY MOUTH ONCE ACTIVE (S) DAILY FOR CONTROL 2) TRIAMCINOLONE 0.1% CREAM APPLY DIRECTED TO ACTIVE AFFECTED AREA TWICE DAILY FOR ATOPIC DERMATITIS. Pending Outpatient Medications Status 1) ACETAMINOPHEN 325MG TAB TAKE TWO TABLETS BY MOUTH PENDING EVERY SIX HOURS NEEDED *CONSULT PHYSICIAN OR PHARMACIST BEFORE TAKING EXTRA ACETAMINOPHEN (TYLENOL) 2) AMOXICILLIN 500MG CAP TAKE ONE CAPSULE BY MOUTH THREE PENDING TIMES DAILY FOR INFECTION Active Non-VA Medications Status 1) Non-VA IBUPROFEN 800MG TAB 800MG MOUTH THREE TIMES ACTIVE DAILY WITH FOOD NEEDED 2) Non-VA MULTIVIT W/MINERALS, CAP/TAB 1 CAP/TAB ACTIVE MOUTH ONCE DAILY 6 Total Medications Allergies: Patient has answered NKA Social History: PHYSICAL EXAM Physical Exam: I have reviewed the vital signs GEN: No acute distress, non-toxic appearing. Well-appearing. HEAD: Normocephalic, atraumatic ENT: Sclerae non-icteric. Mouth normal, there is a small red area near the right upper first molar. No swelling in that area. Teeth otherwise in good condition. No swelling of the face. PULMONARY: Breathing easily NEURO: Motor grossly intact PSYCHIATRIC: Normal affect SKIN: Visualized skin normal in appearance Clinical Data Assessment and Plan ED Course: Patient states there is a 0% chance she is and she does not want a test done. She has evidence of an abscess that drained on the right buccal maxillary gingival surface near the first molar. No swelling now. Face appears normal. Teeth otherwise in good condition. Advised that she needs to see a dentist as soon as possible. Prescribing amoxicillin and also Tylenol. Medical Decision Making: See above Consults: Assessment: Dental abscess Disposition: Discharge /elham/ DINH BENITO ATTENDING PHYSICIAN Signed: 11/15/2023 15:22 DINH BENITO SANA HAUSER [facility] Nov 15, 2023 03:15 PM EMERGENCY DEPT NOT E: LOCAL TITLE: EMERGENCY DEPT PROVIDER DISCHARGE INSTRUCTIONS STANDARD TITLE: EMERGENCY DEPT NOTE DATE OF NOTE: NOV 15, 2023@15:15 ENTRY DATE: NOV 15, 2023@15:15:43 AUTHOR: DINH BENITO EXP COSIGNER: URGENCY: STATUS: COMPLETED DIAGNOSIS dental abscess DISCHARGE INSTRUCTIONS: See a dentist as soon as possible. Return anytime as needed for worsening or changing of your condition. MEDICATION RECONCILIATION No medication changes made as a result of this visit. FOLLOW UP INSTRUCTIONS Follow up with primary care team at next available appointment. Other: Dentistry For any concerns, call the [facility] Call Center (local) or [phone] (toll free) For mental health concerns, call the [employer] Line - a confidential toll-free hotline, online chat, or text to connect with qualified, caring ID responders, Call 988 and press 1, chat online, or text a message to [phone] to receive confidential support . MOBILITY DEFICIENCY ASSESSMENT Is this patient at risk for mobility impairment or at increased risk of falls due to a condition they sought care for today? No FUTURE APPOINTMENTS 12/20/2023 11:30 [facility] 04/17/2024 08:45 A[facility] PAC 3 TEAM B TRAVEL ASSISTANT Home SUMMARY OF EMERGENCY DEPT MANAGEMENT Today in the Emergency Dept, you received the following: ITEM ORDERED START DATE STOP DATE ENTERED STATUS AMOXICILLIN CAP,ORAL 11/15/23@1513 PENDING ACETAMINOPHEN TAB 11/15/23@1513 PENDING Text Order: please give patient a list of dentists 11/15/23 @ @ 11/15/23@1512 ACTIVE Results are available on [facility] ([email or web address]). EDUCATION: The patient has been educated about their medications. A copy of the medication list is provided below: Active/Pending Local & Remote Medications Active Outpatient Medications (excluding Supplies): Outpatient Medications Status 1) ACETAMINOPHEN 325MG TAB TAKE TWO TABLETS BY MOUTH PENDING EVERY SIX HOURS NEEDED *CONSULT PHYSICIAN OR PHARMACIST BEFORE TAKING EXTRA ACETAMINOPHEN (TYLENOL) 2) AMOXICILLIN 500MG CAP TAKE ONE CAPSULE BY MOUTH THREE PENDING TIMES DAILY FOR INFECTION 3) ORTHO TRI-CYCLEN TAB,28 TAKE 1 TABLET BY MOUTH ONCE ACTIVE (S) DAILY FOR CONTROL 4) TRIAMCINOLONE 0.1% CREAM APPLY DIRECTED TO ACTIVE AFFECTED AREA TWICE DAILY FOR ATOPIC DERMATITIS. Non-VA Medications Status 1) Non-VA IBUPROFEN 800MG TAB 800MG MOUTH THREE TIMES ACTIVE DAILY WITH FOOD NEEDED 2) Non-VA MULTIVIT W/MINERALS, CAP/TAB 1 CAP/TAB ACTIVE MOUTH ONCE DAILY 6 Total Medications /es/ DINH BENITO ATTENDING PHYSICIAN Signed: 11/15/2023 15:17 DINH BENITO [facility] Nov 15, 2023 02:39 PM EMERGENCY DEPT TRI AGE NOTE: LOCAL TITLE: EMERGENCY DEPT PROVIDER TRIAGE NOTE STANDARD TITLE: EMERGENCY DEPT TRIAGE NOTE DATE OF NOTE: NOV 15, 2023@14:39 ENTRY DATE: NOV 15, 2023@14:39:16 AUTHOR: GISELLA MELENDREZ EXP COSIGNER: URGENCY: STATUS: COMPLETED ED Provider Triage Note Chief Complaint: dental abscess HPI: 28-year-old with dental pain today Physical Exam: deferred Patient Education: The Hamilton was seen in the rapid triage assessment room. There is not yet an available bed and the Hamilton was placed back in the waiting room. Orders were placed from triage if deemed appropriate. The Hamilton was informed that a full evaluation and treatment by an Emergency Department Provider is necessary to rule out emergent pathologies. If the leaves before this evaluation and treatment are fully performed, it is considered leaving against medical advice. /elham/ GISELLA MELENDREZ MD STAFF PHYSICIAN Signed: 11/15/2023 14:40 [facility] Nov 15, 2023 02:39 PM EMERGENCY DEPT TRI AGE NOTE: LOCAL TITLE: ED TRIAGE NOTE STANDARD TITLE: EMERGENCY DEPT TRIAGE NOTE DATE OF NOTE: NOV 15, 2023@14:39 ENTRY DATE: NOV 15, 2023@14:39:45 AUTHOR: DOLORES WARREN EXP COSIGNER: URGENCY: STATUS: COMPLETED Emergency Department/Urgent Care Center Triage Patient age:28 Sex: FEMALE On arrival patient was: AMBULATORY Patient phone number: Allergies: WARNING: Data may be incomplete. Check V. FACILITY ALLERGY/ADR -------- No Remote Allergy/ADR Data available for this patient [facility] No Known Allergies Subjective/Chief Complaint: Dental Pain Objective: Vet with complaints of dental pain and possible abscess R upper molar x 2 weeks The patient is not a fall risk. Vital Signs * Respirations 18 SEPSIS SCREENING: Count of vital signs outside of normal parameters meeting SIRS criteria: (temperature greater than 100.9F or less than 96.8F, heart rate greater than 90, systolic blood pressure less than 90 or MAP less than 65, or respiratory rate higher than 20) - Score: 0-1 Pain scale recorded: 8 Pain Score is >/= 4. Interventions taken: Distraction MD notified. Name: darcie gracia Last normal menstrual period (LNMP): Oct Emergency Severity Index (IVRING) level Level 4 Current Medications: Active Outpatient Medications (excluding Supplies): Active Outpatient Medications Status 1) ORTHO TRI-CYCLEN TAB,28 TAKE 1 TABLET BY MOUTH ONCE ACTIVE (S) DAILY FOR CONTROL 2) TRIAMCINOLONE 0.1% CREAM APPLY DIRECTED TO ACTIVE AFFECTED AREA TWICE DAILY FOR ATOPIC DERMATITIS. Active Non-VA Medications Status 1) Non-VA IBUPROFEN 800MG TAB 800MG MOUTH THREE TIMES ACTIVE DAILY WITH FOOD NEEDED 2) Non-VA MULTIVIT W/MINERALS, CAP/TAB 1 CAP/TAB ACTIVE MOUTH ONCE DAILY 4 Total Medications Current Problems: Problem List - Active - NONE FOUND Suicide Screen: [place] Suicide Severity Rating Scale (C-SSRS) screener 1. Over the past month, have you wished you were or wished you could go to sleep and not wake up? No 2. Over the past month, have you had any actual thoughts of killing yourself? No 3. Over the past month, have you been thinking about how you might do this? Response not required due to responses to other questions. 4. Over the past month, have you had these thoughts and had some intention of acting on them? Response not required due to responses to other questions. 5. Over the past month, have you started to work out or worked out the details of how to kill yourself? Response not required due to responses to other questions. 6. If yes, at any time in the past month did you intend to carry out this plan? Response not required due to responses to other questions. 7. In your lifetime, have you ever done anything, started to do anything, or prepared to do anything to end your life (for example, collected pills, obtained a gun, gave away valuables, went to the roof but didn't jump)? No 8. If YES, was this within the past 3 months? Response not required due to responses to other questions. /elham/ DOLORES WARREN REGISTERED NURSE Signed: 11/15/2023 14:41 DOLORES WARREN [facility] Nov 15, 2023 02:30 PM NURSING EMERGENCY DEPT NOTE: LOCAL TITLE: ED NURSE FIRST NOTE STANDARD TITLE: NURSING EMERGENCY DEPT NOTE DATE OF NOTE: NOV 15, 2023@14:30 ENTRY DATE: NOV 15, 2023@14:31 AUTHOR: ULICES HERMOSILLO EXP COSIGNER: URGENCY: STATUS: COMPLETED INITIAL CONTACT Chief Complaint: Tooth abcess. Disposition: Triage /es/ ULICES HERMOSILLO REGISTERED NURSE Signed: 11/15/2023 14:31 ULICES HERMOSILLO [facility]
--- OUTSIDE RECORDS SUMMARY | 2024-03-27 12:17 | XMS_ITS | Continuity of Care Document ---
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 It does not include entries that were removed or entered in error. 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 Condition DoD Irregular menstruation, unspecified Active 11/19/2016 Condition DoD Chondrocostal junction syndrome [Tietze] Active 11/19/2016 Condition DoD Low back pain Active 11/19/2016 Condition DoD Adjustment disorder with depressed mood Active 11/19/2016 Condition DoD Headache Active 11/04/2016 Condition DoD Diagnosis: ICD-10-CM K08.89 Other specified disorders of teeth and supporting structures Active Diagnosis [facility] Diagnosis: ICD-10-CM Z00.01 Encounter for general adult medical exam w abnormal findings Active Diagnosis [facility] Medications Combined list of outpatient medications from Department of Defense and Veterans Affairs facilities.Medications provided include 1) outpatient medications from the last 15 months, and 2) patient-reported medications. Medication Details Route Status Patient Instructions Prescription Expires Prescription Number Last Dispense Date Ordering Provider Order Date Order Qty Source ACETAMINOPH EN 325MG TAB TAKE TWO TABLETS BY MOUTH EVERY SIX HOURS NEEDED *CONSULT PHYSICIA N OR PHARMACI ST BEFORE TAKING EXTRA ACETAMIN OPHEN (TYLENOL ) ORAL 12/15/2023 [id number] CHANDA BENITO 2023 100 [facility] AMOXICILLIN TRIHYDRATE 500MG CAP TAKE ONE CAPSULE BY MOUTH THREE TIMES DAILY FOR INFECTIO N ORAL 12/15/2023 [id number] CHANDA BENITO 2023 21 [facility] fluconazole 150 mg oral tablet 0 total refill(s ) Ordered No Facilit y Access IBUPROFEN 800MG TAB TAKE ONE TABLET BY MOUTH THREE TIMES DAILY WITH FOOD NEEDED ORAL ACTIVE ME ALVARO MARTI 2019 [facility] MULTIVITAMI NS W/MINERALS, CAP/TAB TAKE 1 CAP/TAB BY MOUTH ONCE DAILY ORAL ACTIVE DRYLIE,ME JOHN 2019 [facility] ORTHO TRI-CYCLEN TAB,28 TAKE 1 TABLET BY MOUTH ONCE DAILY FOR CONTROL ORAL ACTIVE 10/24/2024 [id number] ANGIE GOMES L 2023 3 [facility] TRIAMCINOLO NE ACETONIDE 0.1% CREAM,TOP APPLY DIRECTED TO AFFECTED AREA TWICE DAILY FOR ATOPIC DERMATIT IS. TOPICA L ACTIVE 10/21/2024 [id number] ANGIE GOMES L 2023 15 [facility] Allergies, Adverse Reactions, Alerts Combined list of allergies from Department of Defense and Veterans Affairs facilities. It does not include entries that were removed or entered in error. Substance Category Reaction Severity Reaction type Status Date Reported Comments Source No Known Allergies Drug allergy (disorder) active 09/08/2016 [facility] Immunizations Combined list of available immunizations from the Department of Defense and Veterans Affairs facilities. 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 Source HPV9 2020 165 complet ed [facility] influenza, injectable, quadrivalent- pf 2018 Katrin to Arm [id number] 150 [employer]Smith[employer] complet ed influenza , injectabl e, quadrival ent-pf 02/20/19 Given Ambulat ory Pharmac y tetanus, diphtheria, acellular pertu is 2018 Ron rae Arm [id number] 115 [employer] complet ed tetanus, diphtheri a, acellular pertussis 02/20/19 Given Ambulat ory Pharmac y TDAP 2018 115 complet ed [facility] tetanus toxoid, reduced diphtheria toxoid, and acellular pertu is vaccine, adsorbed 1 2018 TIFFANIE ARREAGA [id number] 115 [employer] ([place]) complet ed tetanus toxoid, reduced diphtheri a toxoid, and acellular pertussis vaccine, adsorbed DoD Influenza, injectable, quadrivalent, preservative free 1 2018 TIFFANIE ARREAGA [id number] 150 [employer] ([place]) complet ed Influenza , injectabl e, quadrival ent, preservat sergey free DoD influenza, injectable, quadrivalent- pf 2017 [id number] 150 GlaxoSmith[employer]li ne complet ed influenza , injectabl e, quadrival ent-pf 02/01/18 Given Ambulat ory Pharmac y Influenza, injectable, quadrivalent, preservative free 1 2017 [id number] 150 SmithKline ([place]) complet ed Influenza , injectabl e, quadrival ent, preservat sergey free DoD hepatitis A adult vaccine 2017 [id number] 52 [employer] ne complet ed hepatitis A adult vaccine 03/22/17 Given Ambulat ory Pharmac y hepatitis A vaccine, adult dosage 2 2017 [id number] 52 [employer]Kline ([place]) complet ed hepatitis A vaccine, adult dosage DoD influenza, injectable, quadrivalent- pf 2016 [id number] 150 GlaxoSmith[employer] complet ed influenza , injectabl e, quadrival ent-pf 12/28/16 Given Ambulat ory Pharmac y Influenza, injectable, quadrivalent, preservative free 1 2016 [id number] 150 SmithKline ([facility]) complet ed Influenza , injectabl e, quadrival ent, preservat sergey free DoD measles/mumps /rubella virus vaccine 2016 [id number] 03 Merck & Company Inc complet ed measles/m umps/rube lla virus vaccine 12/16/16 Given Ambulat ory Pharmac y measles, mumps and rubella virus vaccine 2 2016 [id number] 03 Merck ([facility]D) complet ed measles, mumps and rubella virus vaccine DoD meningococcal A,C,Y,W-135 (MCV4P) 2016 [id number] sanofi pasteur complet ed meningoco ccal A,C,Y,W-1 35 (MCV4P) 07/30/16 Given Ambulat ory Pharmac y measles/mumps /rubella virus vaccine 2016 [id number] 03 Merck [employer] Company Inc complet ed measles/m umps/rube lla virus vaccine 07/30/16 Given Ambulat ory Pharmac y adenovirus vaccine, live 2016 [id number] 143 [employer]eva [employer] complet ed adenoviru s vaccine, live 07/30/16 Given Ambulat ory Pharmac y tetanus, diphtheria, acellular pertu is 2016 [id number] 115 GlaxoSmithK[employer] ne complet ed tetanus, diphtheri a, acellular pertussis 07/30/16 Given Ambulat ory Pharmac y Hep A, ped/adol, 2 dose 2016 [id number] 83 [employer] complet ed Hep A, ped/adol, 2 dose 07/30/16 Given Ambulat ory Pharmac y influenza, seasonal, injectable-pf 2016 [id number] 140 [employer] complet ed influenza , seasonal, injectabl e-pf 07/30/16 Given Ambulat ory Pharmac y poliovirus vaccine, inactivated 2016 [id number] sanofi pasteur complet ed polioviru s vaccine, inactivat ed 07/30/16 Given Ambulat ory Pharmac y measles, mumps and rubella virus vaccine 1 2016 [id number] 03 Merck (MSD) complet ed measles, mumps and rubella virus vaccine DoD poliovirus vaccine, inactivated 1 2016 [id number] 10 Sanofi Pasteur ([facility]) complet ed polioviru s vaccine, inactivat ed DoD hepatitis A vaccine, pediatric/ado lescent dosage, 2 dose schedule 1 2016 [id number] 83 [facility] ([facility]) complet ed hepatitis A vaccine, pediatric /adolesce nt dosage, 2 dose schedule DoD meningococcal polysaccharid e (groups A, C, Y and W-135) diphtheria toxoid conjugate vaccine (MCV4P) 1 2016 [id number] Sanofi Pasteur ([facility]) complet ed meningoco ccal polysacch aride (groups A, C, Y and W-135) diphtheri a toxoid conjugate vaccine (MCV4P) DoD tetanus toxoid, reduced diphtheria toxoid, and acellular pertu is vaccine, adsorbed 1 2016 [id number] 115 [facility] ([facility]) complet ed tetanus toxoid, reduced diphtheri a toxoid, and acellular pertussis vaccine, adsorbed DoD Influenza, seasonal, injectable, preservative free 1 2016 [id number] 140 [employer] ([facility]) complet ed Influenza , seasonal, injectabl e, preservat sergey free DoD Adenovirus, type 4 and type 7, live, oral 1 2016 [id number] 143 [facility] ([facility]) complet ed Adenoviru s, type 4 and type 7, live, oral DoD varicella virus vaccine 1 2016 UNK 21 Unknown (UNK) Not Given varicella virus vaccine DoD hepatitis B vaccine, adult dosage 1 2016 UNK 43 Unknown (UNK) Not Given hepatitis B vaccine, adult dosage DoD Results Combined list of recent chemistry, hematology and other laboratory results from Department of Defense and Veterans Affairs, ranging from 15 months to all on record, depending upon the facility. Order Name Results Value Reference Range Date Interpretation Specimen Comments Source CEDRICK SCREEN IFA W/REFLEX NUCLEAR AB [PRESENCE] IN SERUM Negative 10/24 Specimen Type: SERUM Comment: CEDRICK IFA is a first line screen for detecting the presence of up to approximate ly 150 autoantibod ies in various autoimmune diseases. A negative CEDRICK IFA result suggests CEDRICK-associa you autoimmune disease is not present at this time, but is not definitive. If there is high clinical suspicion for Sjogren's Syndrome, testing for anti-SS-A/R o antibody should be considered. Anti-Lacey-1 antibody should be considered for clinically suspected inflammator y myopathies. AC-0: Negative Internation al Consensus on CEDRICK Patterns [email or web address] For additional information , please refer to [email or web address] (This link is being provided for information al/ educational purposes only.) Test Performed by [employer] [facility], [place], [address] [place], [place] Nigel Santo M.D., Ph.D., Director of Laboratorie s , CLIA [id number] SSA- Reference Range: < 1.0 NEG AI SSB- Reference Range: < 1.0 NEG AI SSB-Test Performed by [employer] [facility], SSB-[place], SSB-[address] [place], [place] SSB-Nigel Santo M.D., Ph.D., Director of Laboratorie s SSB- , CLIA [id number] Ordering Provider: YOLA GOMES Report Released Date/Time: Oct 21, 2023 02:07 PM Reporting Lab: [facility] [address] [place] [phone] Performing Lab: [address] [address] [facility] CBC W/AUTOMAT ED DIFF NUCLEATED ERYTHROCYT ES/100 LEUKOCYTES [RATIO] IN BLOOD BY AUTOMATED COUNT 0.0 0 - 9.99 10/24 Specimen Type: BLOOD No comment entered. Ordering Provider: YOLA GOMES Report Released Date/Time: Oct 07, 2023 03:44 PM Reporting Lab: [facility] [address] [place] [phone] Performing Lab: [address] [address] [facility] CBC W/AUTOMAT ED DIFF EOSINOPHIL S [#/VOLUME] IN BLOOD BY AUTOMATED COUNT 0.07 10*3/uL 0 - 0.42 10/24 Specimen Type: BLOOD No comment entered. Ordering Provider: YOLA GOMES Report Released Date/Time: Oct 07, 2023 03:44 PM Reporting Lab: [facility] [address] [place] [phone] Performing Lab: [address] [address] [facility] CBC W/AUTOMAT ED DIFF LEUKOCYTES [#/VOLUME] IN BLOOD BY AUTOMATED COUNT 5.82 10*3/uL 4.86 - 11.05 10/24 Specimen Type: BLOOD No comment entered. Ordering Provider: YOLA GOMES Report Released Date/Time: Oct 07, 2023 03:44 PM Reporting Lab: [facility] [address] [place] [phone] Performing Lab: [facility] [address] [place] [phone] [facility] CBC W/AUTOMAT ED DIFF ERYTHROCYT ES [#/VOLUME] IN BLOOD BY AUTOMATED COUNT 4.29 10*6/uL 3.83 - 5.71 10/24 Specimen Type: BLOOD No comment entered. Ordering Provider: YOLA GOMES Report Released Date/Time: Oct 07, 2023 03:44 PM Reporting Lab: [facility] [address] [facility] [address] Performing Lab: [facility] [address] [place] [phone] [facility] CBC W/AUTOMAT ED DIFF HEMOGLOBIN [MASS/VOLU ME] IN BLOOD 12.8 g/dL 12.1 - 16.9 10/24 Specimen Type: BLOOD No comment entered. Ordering Provider: YOLA GOMES Report Released Date/Time: Oct 07, 2023 03:44 PM Reporting Lab: [facility] [address] [place] [phone] Performing Lab: [facility] [address] [place] [phone] [facility] CBC W/AUTOMAT ED DIFF HEMATOCRIT [VOLUME FRACTION] OF BLOOD BY AUTOMATED COUNT 36.7 37.8 - 48.4 10/24 L Specimen Type: BLOOD No comment entered. Ordering Provider: YOLA GOMES Report Released Date/Time: Oct 07, 2023 03:44 PM Reporting Lab: [address] [address] Performing Lab: [address] [address] [facility] CBC W/AUTOMAT ED DIFF MCV [ENTITIC VOLUME] BY AUTOMATED COUNT 85.5 fL 82.3 - 100.1 10/24 Specimen Type: BLOOD No comment entered. Ordering Provider: YOLA GOMES Report Released Date/Time: Oct 07, 2023 03:44 PM Reporting Lab: [address] [address] Performing Lab: [address] [address] [facility] CBC W/AUTOMAT ED DIFF MCH [ENTITIC MASS] BY AUTOMATED COUNT 29.8 pg 26.9 - 33.0 10/24 Specimen Type: BLOOD No comment entered. Ordering Provider: YOLA GOMES Report Released Date/Time: Oct 07, 2023 03:44 PM Reporting Lab: [facility] [address] [phone] Performing Lab: [facility] [address] [place] [phone] [facility] CBC W/AUTOMAT ED DIFF MCHC [MASS/VOLU ME] BY AUTOMATED COUNT 34.9 g/dL 31.0 - 37.0 10/24 Specimen Type: BLOOD No comment entered. Ordering Provider: YOLA GOMES Report Released Date/Time: Oct 07, 2023 03:44 PM Reporting Lab: [facility] [address] [place] [phone] Performing Lab: [facility] [address] [place] [phone] [facility] CBC W/AUTOMAT ED DIFF ERYTHROCYT E DISTRIBUTI ON WIDTH [ENTITIC VOLUME] BY AUTOMATED COUNT 11.8 11.0 - 15.0 10/24 Specimen Type: BLOOD No comment entered. Ordering Provider: YOLA GOMES Report Released Date/Time: Oct 07, 2023 03:44 PM Reporting Lab: [facility] [address] [place] [phone] Performing Lab: [address] [phone] [facility] CBC W/AUTOMAT ED DIFF SEGMENTED NEUTROPHIL S/100 LEUKOCYTES IN BLOOD BY AUTOMATED COUNT 62.0 50.0 - 74.0 10/24 Specimen Type: BLOOD No comment entered. Ordering Provider: YOLA GOMES Report Released Date/Time: Oct 07, 2023 03:44 PM Reporting Lab: [facility] [address] [place] [phone] Performing Lab: [facility] [address] [place] [phone] [facility] CBC W/AUTOMAT ED DIFF LYMPHOCYTE S/100 LEUKOCYTES IN BLOOD BY AUTOMATED COUNT 31.1 13.9 - 36.8 10/24 Specimen Type: BLOOD No comment entered. Ordering Provider: YOLA GOMES Report Released Date/Time: Oct 07, 2023 03:44 PM Reporting Lab: [facility] [address] [place] [phone] Performing Lab: [facility] [address] [place] [phone] [facility] CBC W/AUTOMAT ED DIFF MONOCYTES/ 100 LEUKOCYTES IN BLOOD BY AUTOMATED COUNT 5.3 6.8 - 12.6 10/24 L Specimen Type: BLOOD No comment entered. Ordering Provider: YOLA GOMES Report Released Date/Time: Oct 07, 2023 03:44 PM Reporting Lab: [facility] [address] [place] [phone] Performing Lab: [facility] [address] [place] [phone] [facility] CBC W/AUTOMAT ED DIFF EOSINOPHIL S/100 LEUKOCYTES IN BLOOD BY AUTOMATED COUNT 1.2 0.0 - 4.1 10/24 Specimen Type: BLOOD No comment entered. Ordering Provider: YOLA GOMES Report Released Date/Time: Oct 07, 2023 03:44 PM Reporting Lab: [address] [address] Performing Lab: [address] [address] [facility] CBC W/AUTOMAT ED DIFF BASOPHILS/ 100 LEUKOCYTES IN BLOOD BY AUTOMATED COUNT 0.2 0.0 - 1.8 10/24 Specimen Type: BLOOD No comment entered. Ordering Provider: YOLA GOMES Report Released Date/Time: Oct 07, 2023 03:44 PM Reporting Lab: [address] [address] Performing Lab: [address] [address] [facility] CBC W/AUTOMAT ED DIFF PLATELETS [#/VOLUME] IN BLOOD BY AUTOMATED COUNT 314 10*3/uL 150 - 400 10/24 Specimen Type: BLOOD No comment entered. Ordering Provider: YOLA GOMES Report Released Date/Time: Oct 07, 2023 03:44 PM Reporting Lab: [address] [phone] Performing Lab: [address] [address] [facility] CBC W/AUTOMAT ED DIFF PLATELET MEAN VOLUME [ENTITIC VOLUME] IN BLOOD BY AUTOMATED COUNT 10.3 fL 8.2 - 13.6 10/24 Specimen Type: BLOOD No comment entered. Ordering Provider: YOLA GOMES Report Released Date/Time: Oct 07, 2023 03:44 PM Reporting Lab: [address] [address] Performing Lab: [address] [address] [facility] CBC W/AUTOMAT ED DIFF NEUTROPHIL S [#/VOLUME] IN BLOOD BY AUTOMATED COUNT 3.61 10*3/uL 2.45 - 8.15 10/24 Specimen Type: BLOOD No comment entered. Ordering Provider: YOLA GOMES Report Released Date/Time: Oct 07, 2023 03:44 PM Reporting Lab: [facility] [address] [place] [phone] Performing Lab: [facility] [address] [place] [phone] [facility] CBC W/AUTOMAT ED DIFF MONOCYTES [#/VOLUME] IN BLOOD BY AUTOMATED COUNT 0.31 10*3/uL 0.54 - 1.16 10/24 L Specimen Type: BLOOD No comment entered. Ordering Provider: YOLA GOMES Report Released Date/Time: Oct 07, 2023 03:44 PM Reporting Lab: [facility] [address] [place] [phone] Performing Lab: [facility] [address] [place] [phone] [facility] CBC W/AUTOMAT ED DIFF BASOPHILS [#/VOLUME] IN BLOOD BY AUTOMATED COUNT 0.01 10*3/uL 0.0 - 0.03 10/24 Specimen Type: BLOOD No comment entered. Ordering Provider: YOLA GOMES Report Released Date/Time: Oct 07, 2023 03:44 PM Reporting Lab: [facility] [address] [place] [phone] Performing Lab: [facility] [address] [place] [phone] [facility] CBC W/AUTOMAT ED DIFF NUCLEATED ERYTHROCYT ES [#/VOLUME] IN BLOOD BY AUTOMATED COUNT 0.00 10*3/uL 10/24 Specimen Type: BLOOD No comment entered. Ordering Provider: YOLA GOMES Report Released Date/Time: Oct 07, 2023 03:44 PM Reporting Lab: [facility] [address] [place] [phone] Performing Lab: [facility] [address] [place] [phone] [facility] CBC W/AUTOMAT ED DIFF LYMPHOCYTE S [#/VOLUME] IN BLOOD BY AUTOMATED COUNT 1.81 10*3/uL 1.23 - 3.89 10/24 Specimen Type: BLOOD No comment entered. Ordering Provider: YOLA GOMES Report Released Date/Time: Oct 07, 2023 03:44 PM Reporting Lab: [facility] [address] [place] [phone] Performing Lab: [facility] [address] [place] [phone] [facility] CBC W/AUTOMAT ED DIFF IMMATURE GRANULOCYT ES/100 LEUKOCYTES IN BLOOD BY AUTOMATED COUNT 0.2 0.0 - 4.9 10/24 Specimen Type: BLOOD No comment entered. Ordering Provider: YOAL GOMES Report Released Date/Time: Oct 07, 2023 03:44 PM Reporting Lab: [address] [phone] Performing Lab: [address] [phone] [facility] CBC W/AUTOMAT ED DIFF IMMATURE GRANULOCYT ES [#/VOLUME] IN BLOOD BY AUTOMATED COUNT 0.01 10*3/uL 0.0 - 0.49 10/24 Specimen Type: BLOOD No comment entered. Ordering Provider: YOLA GOMES Report Released Date/Time: Oct 07, 2023 03:44 PM Reporting Lab: [address] [address] Performing Lab: [address] [phone] [facility]ANE METABOLIC PANEL GLUCOSE [MASS/VOLU ME] IN SERUM OR PLASMA 87 mg/dL 74 - 109 10/24 Specimen Type: PLASMA Comment: eGFR calculated using the 2020 CKD-EPI Creatinine equation: eGFR and Chronic Kidney Disease (CKD) Stages: >90 mL/min/1.73 m~2 Stage 1 - Normal kidney function 89-60 mL/min/1.73 m~2 Stage 2 - Mild loss of kidney function 45-59 mL/min/1.73 m~2 Stage 3a - Mild to moderate loss of kidney function 30-44 mL/min/1.73 m~2 Stage 3B - Moderate to severe loss of kidney function 29-15 mL/min/1.73 m~2 Stage 4 - Severe loss of kidney function <15 mL/min/1.73 m~2 Stage 5 -Kidney failure Reference: [email or web address] Ordering Provider: YOLA GOMES Report Released Date/Time: Oct 07, 2023 03:44 PM Reporting Lab: [address] [address] Performing Lab: [address] [address] [facility] SIVE METABOLIC PANEL UREA NITROGEN [MASS/VOLU ME] IN SERUM OR PLASMA 9 mg/dL 6 - 20 10/24 Specimen Type: PLASMA Comment: eGFR calculated using the 2020 CKD-EPI Creatinine equation: eGFR and Chronic Kidney Disease (CKD) Stages: >90 mL/min/1.73 m~2 Stage 1 - Normal kidney function 89-60 mL/min/1.73 m~2 Stage 2 - Mild loss of kidney function 45-59 mL/min/1.73 m~2 Stage 3a - Mild to moderate loss of kidney function 30-44 mL/min/1.73 m~2 Stage 3B - Moderate to severe loss of kidney function 29-15 mL/min/1.73 m~2 Stage 4 - Severe loss of kidney function <15 mL/min/1.73 m~2 Stage 5 -Kidney failure Reference: [email or web address] Ordering Provider: YOLA GOMES Report Released Date/Time: Oct 07, 2023 03:44 PM Reporting Lab: [address] [address] Performing Lab: [address] [phone] [facility] SIVE METABOLIC PANEL CREATININE [MASS/VOLU ME] IN SERUM OR PLASMA 0.80 mg/dL 0.51 - 0.95 10/24 Specimen Type: PLASMA Comment: eGFR calculated using the 2020 CKD-EPI Creatinine equation: eGFR and Chronic Kidney Disease (CKD) Stages: >90 mL/min/1.73 m~2 Stage 1 - Normal kidney function 89-60 mL/min/1.73 m~2 Stage 2 - Mild loss of kidney function 45-59 mL/min/1.73 m~2 Stage 3a - Mild to moderate loss of kidney function 30-44 mL/min/1.73 m~2 Stage 3B - Moderate to severe loss of kidney function 29-15 mL/min/1.73 m~2 Stage 4 - Severe loss of kidney function <15 mL/min/1.73 m~2 Stage 5 -Kidney failure Reference: [email or web address] Ordering Provider: YOLA GOMES Report Released Date/Time: Oct 07, 2023 03:44 PM Reporting Lab: [address] [address] Performing Lab: [facility] [address] [facility] [phone] [facility] SIVE METABOLIC PANEL SODIUM [MOLES/VOL UME] IN SERUM OR PLASMA 138 meq/L 136 - 145 10/24 Specimen Type: PLASMA Comment: eGFR calculated using the 2020 CKD-EPI Creatinine equation: eGFR and Chronic Kidney Disease (CKD) Stages: >90 mL/min/1.73 m~2 Stage 1 - Normal kidney function 89-60 mL/min/1.73 m~2 Stage 2 - Mild loss of kidney function 45-59 mL/min/1.73 m~2 Stage 3a - Mild to moderate loss of kidney function 30-44 mL/min/1.73 m~2 Stage 3B - Moderate to severe loss of kidney function 29-15 mL/min/1.73 m~2 Stage 4 - Severe loss of kidney function <15 mL/min/1.73 m~2 Stage 5 -Kidney failure Reference: [email or web address] Ordering Provider: YOLA GOMES Report Released Date/Time: Oct 07, 2023 03:44 PM Reporting Lab: [facility] [address] [facility] [address] Performing Lab: [facility] [address] [place] [phone] [facility] SIVE METABOLIC PANEL POTASSIUM [MOLES/VOL UME] IN SERUM OR PLASMA 4.1 meq/L 3.4 - 4.5 10/24 Specimen Type: PLASMA Comment: eGFR calculated using the 2020 CKD-EPI Creatinine equation: eGFR and Chronic Kidney Disease (CKD) Stages: >90 mL/min/1.73 m~2 Stage 1 - Normal kidney function 89-60 mL/min/1.73 m~2 Stage 2 - Mild loss of kidney function 45-59 mL/min/1.73 m~2 Stage 3a - Mild to moderate loss of kidney function 30-44 mL/min/1.73 m~2 Stage 3B - Moderate to severe loss of kidney function 29-15 mL/min/1.73 m~2 Stage 4 - Severe loss of kidney function <15 mL/min/1.73 m~2 Stage 5 -Kidney failure Reference: [email or web address] Ordering Provider: YOLA GOMES Report Released Date/Time: Oct 07, 2023 03:44 PM Reporting Lab: [address] [address] Performing Lab: [address] [address] [facility] SIVE METABOLIC PANEL CHLORIDE [MOLES/VOL UME] IN SERUM OR PLASMA 102.6 meq/L 98.0 - 107.0 10/24 Specimen Type: PLASMA Comment: eGFR calculated using the 2020 CKD-EPI Creatinine equation: eGFR and Chronic Kidney Disease (CKD) Stages: >90 mL/min/1.73 m~2 Stage 1 - Normal kidney function 89-60 mL/min/1.73 m~2 Stage 2 - Mild loss of kidney function 45-59 mL/min/1.73 m~2 Stage 3a - Mild to moderate loss of kidney function 30-44 mL/min/1.73 m~2 Stage 3B - Moderate to severe loss of kidney function 29-15 mL/min/1.73 m~2 Stage 4 - Severe loss of kidney function <15 mL/min/1.73 m~2 Stage 5 -Kidney failure Reference: [email or web address] Ordering Provider: YOLA GOMES Report Released Date/Time: Oct 07, 2023 03:44 PM Reporting Lab: [address] [address] Performing Lab: [address] [address] [facility] SIVE METABOLIC PANEL CARBON DIOXIDE, TOTAL [MOLES/VOL UME] IN SERUM OR PLASMA 24 meq/L 22 - 29 10/24 Specimen Type: PLASMA Comment: eGFR calculated using the 2020 CKD-EPI Creatinine equation: eGFR and Chronic Kidney Disease (CKD) Stages: >90 mL/min/1.73 m~2 Stage 1 - Normal kidney function 89-60 mL/min/1.73 m~2 Stage 2 - Mild loss of kidney function 45-59 mL/min/1.73 m~2 Stage 3a - Mild to moderate loss of kidney function 30-44 mL/min/1.73 m~2 Stage 3B - Moderate to severe loss of kidney function 29-15 mL/min/1.73 m~2 Stage 4 - Severe loss of kidney function <15 mL/min/1.73 m~2 Stage 5 -Kidney failure Reference: [email or web address] Ordering Provider: YOLA GOMES Report Released Date/Time: Oct 07, 2023 03:44 PM Reporting Lab: [address] [address] Performing Lab: [address] [address] [facility] COMPREHEN SIVE METABOLIC PANEL CALCIUM [MASS/VOLU ME] IN SERUM OR PLASMA 9.1 mg/dL 8.6 - 10.0 10/24 Specimen Type: PLASMA Comment: eGFR calculated using the 2020 CKD-EPI Creatinine equation: eGFR and Chronic Kidney Disease (CKD) Stages: >90 mL/min/1.73 m~2 Stage 1 - Normal kidney function 89-60 mL/min/1.73 m~2 Stage 2 - Mild loss of kidney function 45-59 mL/min/1.73 m~2 Stage 3a - Mild to moderate loss of kidney function 30-44 mL/min/1.73 m~2 Stage 3B - Moderate to severe loss of kidney function 29-15 mL/min/1.73 m~2 Stage 4 - Severe loss of kidney function <15 mL/min/1.73 m~2 Stage 5 -Kidney failure Reference: [email or web address] Ordering Provider: YOLA GOMES Report Released Date/Time: Oct 07, 2023 03:44 PM Reporting Lab: [address] [address] Performing Lab: [address] [address] [facility] COMPREHEN SIVE METABOLIC PANEL PROTEIN [MASS/VOLU ME] IN SERUM OR PLASMA 7.2 g/dL 6.6 - 8.7 10/24 Specimen Type: PLASMA Comment: eGFR calculated using the 2020 CKD-EPI Creatinine equation: eGFR and Chronic Kidney Disease (CKD) Stages: >90 mL/min/1.73 m~2 Stage 1 - Normal kidney function 89-60 mL/min/1.73 m~2 Stage 2 - Mild loss of kidney function 45-59 mL/min/1.73 m~2 Stage 3a - Mild to moderate loss of kidney function 30-44 mL/min/1.73 m~2 Stage 3B - Moderate to severe loss of kidney function 29-15 mL/min/1.73 m~2 Stage 4 - Severe loss of kidney function <15 mL/min/1.73 m~2 Stage 5 -Kidney failure Reference: [email or web address] Ordering Provider: YOLA GOMES Report Released Date/Time: Oct 07, 2023 03:44 PM Reporting Lab: [place] [address] [facility] [address] Performing Lab: [address] [address] [facility] COMPREHEN SIVE METABOLIC PANEL ALBUMIN [MASS/VOLU ME] IN SERUM OR PLASMA 4.2 g/dL 3.5 - 5.2 10/24 Specimen Type: PLASMA Comment: eGFR calculated using the 2020 CKD-EPI Creatinine equation: eGFR and Chronic Kidney Disease (CKD) Stages: >90 mL/min/1.73 m~2 Stage 1 - Normal kidney function 89-60 mL/min/1.73 m~2 Stage 2 - Mild loss of kidney function 45-59 mL/min/1.73 m~2 Stage 3a - Mild to moderate loss of kidney function 30-44 mL/min/1.73 m~2 Stage 3B - Moderate to severe loss of kidney function 29-15 mL/min/1.73 m~2 Stage 4 - Severe loss of kidney function <15 mL/min/1.73 m~2 Stage 5 -Kidney failure Reference: [email or web address] Ordering Provider: YOLA GOMES Report Released Date/Time: Oct 07, 2023 03:44 PM Reporting Lab: [address] [address] Performing Lab: [address] [address] [facility] ALKALINE PHOSPHATAS E [ENZYMATIC ACTIVITY/V OLUME] IN SERUM OR PLASMA 59 U/L 35 - 104 10/24 Specimen Type: PLASMA Comment: eGFR calculated using the 2020 CKD-EPI Creatinine equation: eGFR and Chronic Kidney Disease (CKD) Stages: >90 mL/min/1.73 m~2 Stage 1 - Normal kidney function 89-60 mL/min/1.73 m~2 Stage 2 - Mild loss of kidney function 45-59 mL/min/1.73 m~2 Stage 3a - Mild to moderate loss of kidney function 30-44 mL/min/1.73 m~2 Stage 3B - Moderate to severe loss of kidney function 29-15 mL/min/1.73 m~2 Stage 4 - Severe loss of kidney function <15 mL/min/1.73 m~2 Stage 5 -Kidney failure Reference: [email or web address] Ordering Provider: YOLA GOMES Report Released Date/Time: Oct 07, 2023 03:44 PM Reporting Lab: [address] [address] Performing Lab: [address] [address] [facility] COMPREHEN SIVE METABOLIC PANEL ASPARTATE AMINOTRANS FERASE [ENZYMATIC ACTIVITY/V OLUME] IN SERUM OR PLASMA 20 U/L - 32 10/24 Specimen Type: PLASMA Comment: eGFR calculated using the 2020 CKD-EPI Creatinine equation: eGFR and Chronic Kidney Disease (CKD) Stages: >90 mL/min/1.73 m~2 Stage 1 - Normal kidney function 89-60 mL/min/1.73 m~2 Stage 2 - Mild loss of kidney function 45-59 mL/min/1.73 m~2 Stage 3a - Mild to moderate loss of kidney function 30-44 mL/min/1.73 m~2 Stage 3B - Moderate to severe loss of kidney function 29-15 mL/min/1.73 m~2 Stage 4 - Severe loss of kidney function <15 mL/min/1.73 m~2 Stage 5 -Kidney failure Reference: [email or web address] Ordering Provider: YOLA GOMES Report Released Date/Time: Oct 07, 2023 03:44 PM Reporting Lab: [address] [address] Performing Lab: [address] [address] [facility] COMPREHEN SIVE METABOLIC PANEL BILIRUBIN. TOTAL [MASS/VOLU ME] IN SERUM OR PLASMA 0.38 mg/dL - 1.2 10/24 Specimen Type: PLASMA Comment: eGFR calculated using the 2020 CKD-EPI Creatinine equation: eGFR and Chronic Kidney Disease (CKD) Stages: >90 mL/min/1.73 m~2 Stage 1 - Normal kidney function 89-60 mL/min/1.73 m~2 Stage 2 - Mild loss of kidney function 45-59 mL/min/1.73 m~2 Stage 3a - Mild to moderate loss of kidney function 30-44 mL/min/1.73 m~2 Stage 3B - Moderate to severe loss of kidney function 29-15 mL/min/1.73 m~2 Stage 4 - Severe loss of kidney function <15 mL/min/1.73 m~2 Stage 5 -Kidney failure Reference: [email or web address] Ordering Provider: YOLA GOMES Report Released Date/Time: Oct 07, 2023 03:44 PM Reporting Lab: [address] [address] Performing Lab: [address] [address] [facility] ALANINE AMINOTRANS FERASE [ENZYMATIC ACTIVITY/V OLUME] IN SERUM OR PLASMA 13 U/L - 33 10/24 Specimen Type: PLASMA Comment: eGFR calculated using the 2020 CKD-EPI Creatinine equation: eGFR and Chronic Kidney Disease (CKD) Stages: >90 mL/min/1.73 m~2 Stage 1 - Normal kidney function 89-60 mL/min/1.73 m~2 Stage 2 - Mild loss of kidney function 45-59 mL/min/1.73 m~2 Stage 3a - Mild to moderate loss of kidney function 30-44 mL/min/1.73 m~2 Stage 3B - Moderate to severe loss of kidney function 29-15 mL/min/1.73 m~2 Stage 4 - Severe loss of kidney function <15 mL/min/1.73 m~2 Stage 5 -Kidney failure Reference: [email or web address] Ordering Provider: YOLA GOMES Report Released Date/Time: Oct 07, 2023 03:44 PM Reporting Lab: [address] [address] Performing Lab: [address] [address] [facility] COMPREHEN SIVE METABOLIC PANEL GLOMERULAR FILTRATION RATE/1.73 SQ M.PREDICTE D [VOLUME RATE/AREA] IN SERUM, PLASMA OR BLOOD BY CREATININE -BASED FORMULA (CKD-EPI 2020) 104 10/24 Specimen Type: PLASMA Comment: eGFR calculated using the 2020 CKD-EPI Creatinine equation: eGFR and Chronic Kidney Disease (CKD) Stages: >90 mL/min/1.73 m~2 Stage 1 - Normal kidney function 89-60 mL/min/1.73 m~2 Stage 2 - Mild loss of kidney function 45-59 mL/min/1.73 m~2 Stage 3a - Mild to moderate loss of kidney function 30-44 mL/min/1.73 m~2 Stage 3B - Moderate to severe loss of kidney function 29-15 mL/min/1.73 m~2 Stage 4 - Severe loss of kidney function <15 mL/min/1.73 m~2 Stage 5 -Kidney failure Reference: [email or web address] Ordering Provider: YOLA GOMES Report Released Date/Time: Oct 07, 2023 03:44 PM Reporting Lab: [address] [address] Performing Lab: [address] [address] [facility] FREE T4 THYROXINE (T4) FREE [MASS/VOLU ME] IN SERUM OR PLASMA 1.12 ng/dL 0.93 - 1.70 10/24 Specimen Type: PLASMA Comment: eGFR calculated using the 2020 CKD-EPI Creatinine equation: eGFR and Chronic Kidney Disease (CKD) Stages: >90 mL/min/1.73 m~2 Stage 1 - Normal kidney function 89-60 mL/min/1.73 m~2 Stage 2 - Mild loss of kidney function 45-59 mL/min/1.73 m~2 Stage 3a - Mild to moderate loss of kidney function 30-44 mL/min/1.73 m~2 Stage 3B - Moderate to severe loss of kidney function 29-15 mL/min/1.73 m~2 Stage 4 - Severe loss of kidney function <15 mL/min/1.73 m~2 Stage 5 -Kidney failure Reference: [email or web address] Ordering Provider: YOLA GOMES Report Released Date/Time: Oct 07, 2023 03:44 PM Reporting Lab: [address] [address] Performing Lab: [address] [address] [facility] HEMOGLOBI N A1C HEMOGLOBIN A1C/HEMOGL OBIN.TOTAL IN BLOOD 5.0 4.8 - 5.9 10/24 Specimen Type: BLOOD Comment: Values obtained from A1C measurement s can vary. For typical A1C assays, a reported value of 7.0 could actually be between 6.72 and 7.28 if measured by a reference method. A reported value of 9.0 could actually be between 8.73 and 9.27. Ref: [email or web address] Ordering Provider: YOLA GOMES Report Released Date/Time: Oct 07, 2023 03:44 PM Reporting Lab: [address] [address] Performing Lab: [address] [address] [facility] LIPID PANEL CHOLESTERO L [MASS/VOLU ME] IN SERUM OR PLASMA 183 mg/dL - 200 10/24 Specimen Type: PLASMA Comment: eGFR calculated using the 2020 CKD-EPI Creatinine equation: eGFR and Chronic Kidney Disease (CKD) Stages: >90 mL/min/1.73 m~2 Stage 1 - Normal kidney function 89-60 mL/min/1.73 m~2 Stage 2 - Mild loss of kidney function 45-59 mL/min/1.73 m~2 Stage 3a - Mild to moderate loss of kidney function 30-44 mL/min/1.73 m~2 Stage 3B - Moderate to severe loss of kidney function 29-15 mL/min/1.73 m~2 Stage 4 - Severe loss of kidney function <15 mL/min/1.73 m~2 Stage 5 -Kidney failure Reference: [email or web address] Ordering Provider: YOLA GOMES Report Released Date/Time: Oct 07, 2023 03:44 PM Reporting Lab: [address] [address] Performing Lab: [address] [address] [facility] LIPID PANEL TRIGLYCERI DE [MASS/VOLU ME] IN SERUM OR PLASMA 209 mg/dL - 199 10/24 H Specimen Type: PLASMA Comment: eGFR calculated using the 2020 CKD-EPI Creatinine equation: eGFR and Chronic Kidney Disease (CKD) Stages: >90 mL/min/1.73 m~2 Stage 1 - Normal kidney function 89-60 mL/min/1.73 m~2 Stage 2 - Mild loss of kidney function 45-59 mL/min/1.73 m~2 Stage 3a - Mild to moderate loss of kidney function 30-44 mL/min/1.73 m~2 Stage 3B - Moderate to severe loss of kidney function 29-15 mL/min/1.73 m~2 Stage 4 - Severe loss of kidney function <15 mL/min/1.73 m~2 Stage 5 -Kidney failure Reference: [email or web address] Ordering Provider: YOLA GOMES Report Released Date/Time: Oct 07, 2023 03:44 PM Reporting Lab: [facility] [address] [address] Performing Lab: [address] [address] [facility] LIPID PANEL CHOLESTERO L IN HDL [MASS/VOLU ME] IN SERUM OR PLASMA 45.5 mg/dL 60 10/24 Specimen Type: PLASMA Comment: eGFR calculated using the 2020 CKD-EPI Creatinine equation: eGFR and Chronic Kidney Disease (CKD) Stages: >90 mL/min/1.73 m~2 Stage 1 - Normal kidney function 89-60 mL/min/1.73 m~2 Stage 2 - Mild loss of kidney function 45-59 mL/min/1.73 m~2 Stage 3a - Mild to moderate loss of kidney function 30-44 mL/min/1.73 m~2 Stage 3B - Moderate to severe loss of kidney function 29-15 mL/min/1.73 m~2 Stage 4 - Severe loss of kidney function <15 mL/min/1.73 m~2 Stage 5 -Kidney failure Reference: [email or web address] Ordering Provider: YOLA GOMES Report Released Date/Time: Oct 07, 2023 03:44 PM Reporting Lab: [facility] [address] [facility] [address] Performing Lab: [address] [address] [facility] LIPID PANEL CHOLESTERO L IN LDL [MASS/VOLU ME] IN SERUM OR PLASMA BY CALCULATIO N 95.7 mg/dL 10/24 Specimen Type: PLASMA Comment: eGFR calculated using the 2020 CKD-EPI Creatinine equation: eGFR and Chronic Kidney Disease (CKD) Stages: >90 mL/min/1.73 m~2 Stage 1 - Normal kidney function 89-60 mL/min/1.73 m~2 Stage 2 - Mild loss of kidney function 45-59 mL/min/1.73 m~2 Stage 3a - Mild to moderate loss of kidney function 30-44 mL/min/1.73 m~2 Stage 3B - Moderate to severe loss of kidney function 29-15 mL/min/1.73 m~2 Stage 4 - Severe loss of kidney function <15 mL/min/1.73 m~2 Stage 5 -Kidney failure Reference: [email or web address] Ordering Provider: YOLA GOMES Report Released Date/Time: Oct 07, 2023 03:44 PM Reporting Lab: [facility] [address] [facility] [address] Performing Lab: [facility] [address] [facility] [address] [facility] SJOGREN'S ANTIBODIE S (SSA&SSB) SJOGRENS SYNDROME-A EXTRACTABL E NUCLEAR AB [UNITS/VOL UME] IN SERUM <1.0 10/24 Specimen Type: SERUM Comment: CEDRICK IFA is a first line screen for detecting the presence of up to approximate ly 150 autoantibod ies in various autoimmune diseases. A negative CEDRICK IFA result suggests CEDRICK-associa you autoimmune disease is not present at this time, but is not definitive. If there is high clinical suspicion for Sjogren's Syndrome, testing for anti-SS-A/R o antibody should be considered. Anti-Lacey-1 antibody should be considered for clinically suspected inflammator y myopathies. AC-0: Negative Internation al Consensus on CEDRICK Patterns [email or web address] [email or web address] For additional information , please refer to http://educ ation.[employer] .com/faq/FA Q104 (This link is being provided for information al/ educational purposes only.) Test Performed by [employer], [employer] [facility], [address] [address] Nigel Santo M.D., Ph.D., Director of Laboratorie s , CLIA [id number] SSA- Reference Range: < 1.0 NEG AI SSB- Reference Range: < 1.0 NEG AI SSB-Test Performed by [employer], SSB-[place], [facility]-[address] [place], [place] SSB-Nigel Santo M.D., Ph.D., Director of Laboratorie s SSB- , CLIA [id number] Ordering Provider: YOLA GOMES Report Released Date/Time: Oct 21, 2023 02:07 PM Reporting Lab: [facility] [address] [facility] [address] Performing Lab: [address] [address] [facility] SJOGREN'S ANTIBODIE S (SSA&SSB) SJOGRENS SYNDROME-B EXTRACTABL E NUCLEAR AB [UNITS/VOL UME] IN SERUM <1.0 10/24 Specimen Type: SERUM Comment: CEDRICK IFA is a first line screen for detecting the presence of up to approximate ly 150 autoantibod ies in various autoimmune diseases. A negative CEDRICK IFA result suggests CEDRICK-associa you autoimmune disease is not present at this time, but is not definitive. If there is high clinical suspicion for Sjogren's Syndrome, testing for anti-SS-A/R o antibody should be considered. Anti-Lacey-1 antibody should be considered for clinically suspected inflammator y myopathies. AC-0: Negative Internation al Consensus on CEDRICK Patterns [email or web address]://[email or web address] For additional information , please refer to http://educ ation.[employer] .OFERTALDIA/faq/FA Q125 (This link is being provided for information al/ educational purposes only.) Test Performed by [employer], [place], [address] [place], [place] Nigel Santo M.D., Ph.D., Director of Laboratorie s , CLIA [id number] SSA- Reference Range: < 1.0 NEG AI SSB- Reference Range: < 1.0 NEG AI SSB-Test Performed by [employer], SSB-[place], SSB-[address] [place], [place] SSB-Nigel Santo M.D., Ph.D., Director of Laboratorie s SSB- , [facility] [id number] Ordering Provider: YOLA GOMES Report Released Date/Time: Oct 21, 2023 02:07 PM Reporting Lab: [facility] [address] [place] [address] Performing Lab: [address] [facility] TSH THYROTROPI N [UNITS/VOL UME] IN SERUM OR PLASMA 1.720 u[IU]/mL 0.270 - 4.200 10/24 Specimen Type: PLASMA Comment: eGFR calculated using the 2020 CKD-EPI Creatinine equation: eGFR and Chronic Kidney Disease (CKD) Stages: >90 mL/min/1.73 m~2 Stage 1 - Normal kidney function 89-60 mL/min/1.73 m~2 Stage 2 - Mild loss of kidney function 45-59 mL/min/1.73 m~2 Stage 3a - Mild to moderate loss of kidney function 30-44 mL/min/1.73 m~2 Stage 3B - Moderate to severe loss of kidney function 29-15 mL/min/1.73 m~2 Stage 4 - Severe loss of kidney function <15 mL/min/1.73 m~2 Stage 5 -Kidney failure Reference: [email or web address] Ordering Provider: YOLA GOMES Report Released Date/Time: Oct 07, 2023 03:44 PM Reporting Lab: [address] [address] Performing Lab: [address] [address] [facility] URIC ACID URATE [MASS/VOLU ME] IN SERUM OR PLASMA 4.2 mg/dL 2.4 - 5.7 10/24 Specimen Type: PLASMA Comment: eGFR calculated using the 2020 CKD-EPI Creatinine equation: eGFR and Chronic Kidney Disease (CKD) Stages: >90 mL/min/1.73 m~2 Stage 1 - Normal kidney function 89-60 mL/min/1.73 m~2 Stage 2 - Mild loss of kidney function 45-59 mL/min/1.73 m~2 Stage 3a - Mild to moderate loss of kidney function 30-44 mL/min/1.73 m~2 Stage 3B - Moderate to severe loss of kidney function 29-15 mL/min/1.73 m~2 Stage 4 - Severe loss of kidney function <15 mL/min/1.73 m~2 Stage 5 -Kidney failure Reference: [email or web address] Ordering Provider: YOLA GOMES Report Released Date/Time: Oct 07, 2023 03:44 PM Reporting Lab: [facility] [address] [facility] [address] Performing Lab: [facility] [address] [facility] [address] [facility] VITAMIN D, TOTAL 25-HYDROXY VITAMIN D3+25-HYDR OXYVITAMIN D2 [MASS/VOLU ME] IN SERUM OR PLASMA 37 ng/mL 30 - 100 10/24 Specimen Type: PLASMA Comment: eGFR calculated using the 2020 CKD-EPI Creatinine equation: eGFR and Chronic Kidney Disease (CKD) Stages: >90 mL/min/1.73 m~2 Stage 1 - Normal kidney function 89-60 mL/min/1.73 m~2 Stage 2 - Mild loss of kidney function 45-59 mL/min/1.73 m~2 Stage 3a - Mild to moderate loss of kidney function 30-44 mL/min/1.73 m~2 Stage 3B - Moderate to severe loss of kidney function 29-15 mL/min/1.73 m~2 Stage 4 - Severe loss of kidney function <15 mL/min/1.73 m~2 Stage 5 -Kidney failure Reference: [email or web address] Ordering Provider: YOLA GOMES Report Released Date/Time: Oct 07, 2023 03:44 PM Reporting Lab: [facility] [address] [facility] [address] Performing Lab: [facility] [address] [facility] [address] [facility] Vital Signs Combined list of inpatient and outpatient Vital Signs from Department of Defense and Veterans Affairs, ranging from 12 months to all on record, depending upon the facility. Vital Sign Value Date Comments Source No data available for this section Ambulatory Pharm acy SYSTOLIC BLOOD PRESSURE 127 11/15/2023 14:39:00 [facility] DIASTOLIC BLOOD PRESSURE 72 11/15/2023 14:39:00 [facility] PULSE OXIMETRY 100 11/15/2023 14:39:00 [place] [facility] TEMPERATURE 98.8 11/15/2023 14:39:00 [facility] [facility] PULSE 74 11/15/2023 14:39:00 [facility] SYSTOLIC BLOOD PRESSURE 119 10/21/2023 13:32:44 [facility] DIASTOLIC BLOOD PRESSURE 78 10/21/2023 13:32:44 [facility] PULSE OXIMETRY 97 10/21/2023 13:32:44 [facility] WEIGHT 148.8 10/21/2023 13:32:44 [facility] [facility] BMI 28kg/m2 10/21/2023 13:32:44 [facility] [facility] PAIN 0 10/21/2023 13:32:44 [place] [facility] HEIGHT 61 10/21/2023 13:32:44 [place] [facility] PULSE 82 10/21/2023 13:32:44 [place] [facility] RESPIRATION 18 10/21/2023 13:32:44 [facility] Encounters Combined list of: 1) Encounters from Department of Veterans Affairs facilities going back up to thelast 18 months. 2) Encounters from the Department of Defense facilities going back up to 280 months. Location Location Details Encounter Type Encounter Number Reason For Visit Attending Provider ADM Date DC Date Status Disposition Source [facility]) OUTPATIENT [id number] Notes Entered by: Silvia QUIROZ 03 Aug 2016 1059 ------- ------- ------- ------- -- ANNITA Montes 08/03 Released w/o Limitations [facility] ) [employer]([facility] Immunizat ions (Post)) OUTPATIENT [id number] IET IMM TEMITOPE HAWLEY 08/06 Released w/o Limitations [facility] Immuniz ations (Post)) [facility] Immunizat ions (Post)) OUTPATIENT [id number] IET IMM LA GRIMM 08/10 Released w/o Limitations [facility] Immuniz ations (Post)) [facility]) OUTPATIENT [id number] Notes Entered by: Silvia QUIROZ 17 Aug 2016 0547 ------- ------- ------- ------- -- Initial - Bilat Knee/Bl ister Care ANNITA LEÓN 08/17 Released w/o Limitations [facility] ) [facility] Ambulator y) OUTPATIENT [id number] Notes Entered by: Andrae SONG 08 Sep 2016 0627 ------- ------- ------- ------- -- Headach e/Knees SYLWIA ANGLIN 09/08 Released with Work/Duty Limitations [facility] Ambul[facility] ory) [facility]) OUTPATIENT [id number] Notes Entered by: Silvia QUIROZ 20 Sep 2016 0613 ------- ------- ------- ------- -- F/U- Bilat Knee ANNITA LEÓN 09/20 Released w/o Limitations [facility] ) [facility] Ambulator y) OUTPATIENT [id number] Notes Entered by: DONNY MCCABE 29 Sep 2016 0803 ------- ------- ------- ------- -- lower back chest pain TYRON BANERJEE 09/29 Released with Work/Duty Limitations [facility] Ambul[facility]) [facility]([address]) OUTPATIENT [id number] Notes Entered by: ROSALIA LOPEZ 04 Nov 2016 0701 ------- ------- ------- ------- -- back pain/he JT Luna 11/04 Sick at Home/Quarter s [facility]([address]) [facility]([address]) OUTPATIENT [id number] Notes Entered by: LINDA BLOOM 10 Nov 2016 0625 ------- ------- ------- ------- -- Back Pain TYRON HARDY RAVINDER 11/10 Released with Work/Duty Limitations [facility]([address]) [facility]([address]) OUTPATIENT [id number] Notes Entered by: LINDA BLOOM 19 Nov 2016 0700 ------- ------- ------- ------- -- Back Pain Chest pain Aurorat MELY Wheatley 11/19 Released with Work/Duty Limitations [facility]([address]) [facility]([address]) OUTPATIENT [id number] Notes Entered by: LINDA BLOOM 23 Nov 2016 0632 ------- ------- ------- ------- -- Sore throat Back Pain RUFINO GREGORY 11/23 Released w/o Limitations [facility]([address]) [facility]([address]) OUTPATIENT [id number] Notes Entered by: LINDA BLOOM 01 Dec 2016 0637 ------- ------- ------- ------- -- R knee Pain Back Pain Headach e RUFINO GREGORY 12/01 Released w/o Limitations [facility]([address]) [place]([facility]) OUTPATIENT [id number] Notes Entered by: ERIKA MARTÍNEZ 16 Dec 2016 0738 ------- ------- ------- ------- -- Hearing protect ion fitting only ERIKA OLSON 12/16 Released w/o Limitations [place]) [place] [facility] OUTPATIENT [id number] Notes Entered by: STEFAN JESUS 16 Dec 2016 1402 ------- ------- ------- ------- -- pha, vision ERIKA SMITH 12/16 Released w/o Limitations [place]([facility] [place]) [place]([facility] [address] [place] [address]) OUTPATIENT [id number] flu shot DANYELLEMARIEHELENA 12/28 Released w/o Limitations [place]([facility] [address] [place] [address]) [place]([facility] [address] [place] [address]) OUTPATIENT [id number] [facility] SYLWIA HICKEY 03/22 Released w/o Limitations [place]([facility] [address] [place] [address]) [place]([facility] [address] [place] [address]) TELE CONSULT [id number] Notes Entered by: Arlen MAC 29 Mar 2017 0739 ------- ------- ------- ------- -- sick call SKIP MAC 03/29 [place] [place] [place] [place]) OUTPATIENT [id number] pain with urinati on SKIP MAC 03/29 Released w/o Limitations [place]([facility] [place]) [place]([facility] [place]) TELE CONSULT [id number] Notes Entered by: ANIKET PLASENCIA 12 Apr 2017 1000 ------- ------- ------- ------- -- Triage Nurse MANE HELENA LUTZ 04/12 [place]([facility] [place]) [place]([facility] [place]) OUTPATIENT [id number] control implant DAVEY MORGAN 04/19 Released w/o Limitations [place]([address]) [place]([address]) TELE CONSULT [id number] Notes Entered by: MALIHA BRAGG 29 Aug 2017 1610 ------- ------- ------- ------- -- ER follow up MALIHA BRAGG 08/29 [place]([address]) [place] [id number] Notes Entered by: Shweta SONG 30 Aug 2017 0951 ------- ------- ------- ------- -- Annual Hearing Exam STS Abnorma l ZOE SONG 08/30 Released w/o Limitations [place] [place] OUTPATIENT [id number] Follow up ZOE SONG 09/02 Released w/o Limitations [place]([facility]) [place]) OUTPATIENT [id number] JUANITA LY 10/10 Released w/o Limitations [place] [place]([address]) TELE CONSULT [id number] Notes Entered by: Katiuska RICH 10 Oct 2017 0858 ------- ------- ------- ------- -- Lower back pain / UTI / Migrain e SYLWIA KURTZ 10/10 [place]([address]) [place]([address]) OUTPATIENT [id number] er f/u NAIF BLAS 10/11 Released with Work/Duty Limitations [place]([address]) [place](Physic [place] Therapy ([facility])) OUTPATIENT [id number] LBP STEPHANY LAGOS 10/27 Released w/o Limitations [place](Phys ical Therapy ([facility])) [place]([address]) TELE CONSULT [id number] Notes Entered by: MEDHAT CHAN 27 Oct 2017 1048 ------- ------- ------- ------- -- Profile ext JUANITA JC I 10/27 [place]([address]) [place] OUTPATIENT [id number] SHANNON LOCKE 12/06 Released w/o Limitations [place] [place]([address]) OUTPATIENT [id number] back pain and headach e GRISEL DSOUZA 12/06 Released with Work/Duty Limitations [place]([address]) [place](Physic [place] Therapy ([facility])) OUTPATIENT [id number] STEPHANY LAGOS 12/15 Released w/o Limitations [place](Phys ical Therapy ([facility])) [place]([address]) OUTPATIENT [id number] Back pain NAIF BLAS R 12/28 Released with Work/Duty Limitations [place]([address]) [place]([address]) OUTPATIENT [id number] Back pain WANNAIF Sexton R 01/09 Released with Work/Duty Limitations [place]([address]) [place]([address]) OUTPATIENT [id number] Nexplan on removal WANNAIF Sexton R 01/16 Released w/o Limitations [place]([address]) [place] ([facility] OUTPATIENT [id number] Insomni a, unspeci fied MALA SWAN W 01/23 Released w/o Limitations [place]([facility] ([facility])) [place]([address]) OUTPATIENT [id number] suture removal TR RIVERA 01/24 Released w/o Limitations [place]([address]) [place]([facility]rop ractic [facility] ([facility])) OUTPATIENT [id number] MALA SWAN W 01/30 Released w/o Limitations [place]([facility] ([facility] [place] ([facility])) OUTPATIENT [id number] MALA SWAN W 02/02 Released w/o Limitations [place]([facility] ([facility])) [place]([facility]rop [facility] ([facility] OUTPATIENT [id number] MALA SWAN W 02/09 Released w/o Limitations [place]([facility] ([facility])) [place]([facility]rop ract[facility] ([facility])) OUTPATIENT [id number] MALA SWAN W 03/02 Released w/o Limitations [place]([facility] ([facility])) [place]([address]) OUTPATIENT [id number] 6 back pain F/U DAVEY MORGAN 03/08 Released with Work/Duty Limitations [place]([address]) [place](Physic [place] Therapy ([facility])) OUTPATIENT [id number] LBP (SPEC) GIACOMO MERINO 03/24 Released w/o Limitations [place](Phys ical Therapy ([facility])) [place](Phys[facility] Therapy ([facility])) OUTPATIENT [id number] LBP 2 STEPHANY LAGOS 03/30 Released w/o Limitations [place](Phys ical Therapy ([facility])) [place]([address]) TELE CONSULT [id number] Notes Entered by: NICK MCCARTHY S 30 Mar 2018 1441 ------- ------- ------- ------- -- profile DAVEY MORGAN 03/30 [place]([address]) [place]([address]) OUTPATIENT [id number] back pain NAIF BLAS R 04/11 Released with Work/Duty Limitations [place]([address]) [place](Physic [facility] Therapy ([facility])) OUTPATIENT [id number] 4 LBP (1330 2ND) STEPHANY LAGOS 04/13 Released w/o Limitations [place](Phys ical Therapy ([facility])) [place]([address]) TELE CONSULT [id number] Notes Entered by: Katiuska RICH 24 Apr 2018 0819 ------- ------- ------- ------- -- ER f/u Cough, WILCOX, sore throat SYLWIA KURTZ 04/24 [place]([address]) [place]([address]) OUTPATIENT [id number] ER follow up GRISEL DSOUZA 04/26 Released w/o Limitations [place]([address]) [place]([address]) TELE CONSULT [id number] Notes Entered by: TASHI DELATORRE 27 Apr 2018 0915 ------- ------- ------- ------- -- Profile Ext for LBP NAIF BLAS R 04/27 [place]([address]) [place](Phys[facility] Therapy ([facility])) OUTPATIENT [id number] 5 LBP 2 (1330 SCHEDUL E APPT WITH MARTHA ON) STEPHANY LAGOS 05/11 Released w/o Limitations [place](Phys ical Therapy ([facility])) [place]([address]) OUTPATIENT [id number] Notes Entered by: ALEXANDRU HOPKINS 25 May 2018 1421 ------- ------- ------- ------- -- ERIC Perdomo 05/25 Released w/o Limitations [place]([address]) [place]([address]) OUTPATIENT [id number] Notes Entered by: DAVEY MORGAN 30 May 2018 1150 ------- ------- ------- ------- -- MRI results DAVEY MORGAN 05/30 Released with Work/Duty Limitations [place]([address]) [place](Phys[facility] [place] Therapy ([facility])) OUTPATIENT [id number] LOWER BACK FTR GIACOMO MERINO 07/21 Released w/o Limitations [place](Phys ical Therapy ([facility])) [place]([address]) TELE CONSULT [id number] Notes Entered by: Everton SIDDIQI 21 Jul 2018 0943 ------- ------- ------- ------- -- Profile Ext NAIF BLAS 07/21 [place]([address]) [place]([address]) OUTPATIENT [id number] f/u Back Pain DAVEY MORGAN 07/31 Released with Work/Duty Limitations [place]([address]) [place]([facility]) OUTPATIENT [id number] MRDP REVIEW ALICIA LAGUNA 08/03 Released w/o Limitations [place]([facility]) [place]([address]) TELE CONSULT [id number] Notes Entered by: Shawnee HEADLEY 18 Aug 2018 1417 ------- ------- ------- ------- -- Triage Nurse - Test Results ZAIDA SINGH T 08/18 [place]([address]) [place]([address]) TELE CONSULT [id number] Notes Entered by: NICK MCCARTHY 21 Aug 2018 0958 ------- ------- ------- ------- -- Pregnan cy profile ZAIDA SINGH T 08/21 [place]([address]) [place]) [place] [id number] [facility] Released w/o Limitations [place](Ob) [place]) OUTPATIENT [id number] NOB PX SAMANTHA VICKI T 09/26 Released w/o Limitations [place](Ob) [place]) OUTPATIENT [id number] CTR # 30 resched uled from Nov 09 ZIA LUDWIG 10/30 Released w/o Limitations [place] OUTPATIENT [id number] Notes Entered by: ZULMA LAM SA 01 Nov 2018 1550 ------- ------- ------- ------- -- Centeri ng Group # 30 DAREN REESE V 11/01 Released w/o Limitations [place]) OUTPATIENT [id number] Centeri ng Group 30 SAMANTHA VICKI T 11/22 Released w/o Limitations [place](Ob) [place](Ob) OUTPATIENT [id number] ANATOMY SCAN DELORES ARMSTRONG 12/01 Released w/o Limitations [place](Ob) [place]([facility]) OUTPATIENT [id number] Notes Entered by: Shweta SONG 12 Dec 2018 1401 ------- ------- ------- ------- -- Annual Hearing Exam ZOE SONG 12/12 Released w/o Limitations [place]([facility]) [place](Ob) OUTPATIENT [id number] [facility] Joseph CAMPBELLSAMANTHA VICKI T 12/19 Released w/o Limitations [place](Ob) [place](Ob) OUTPATIENT [id number] [facility] Joseph CAMPBELLSAMANTHA, VICKI T 01/12 Released w/o Limitations [place](Ob) [place](Ob) OUTPATIENT [id number] [facility] Joseph CAMPBELLSAMANTHA, VICKI T 01/31 Released w/o Limitations [place](Ob) [place](Ob) TELE CONSULT [id number] Notes Entered by: AMANDA LUNA 19 Feb 2019 1514 ------- ------- ------- ------- -- Migrain e Medicat GIACOMO Maya 02/19 [place](Ob) [place](Ob) OUTPATIENT [id number] [facility] Joseph CAMPBELLSAMANTHA, VICKI T 02/28 Released w/o Limitations [place](Ob) [place](Ob) OUTPATIENT [id number] [facility] Joseph CAMPBELLSAMANTHAVICKI BERGMAN T 03/14 Released w/o Limitations [facility] [place] [facility] [place] [facility] [place]) [place] [id number] [facility] 30 VICKI SINGH T 03/27 Released w/o Limitations [facility] [place] [facility]Ob) [facility] [place]) OUT[place]IENT [id number] 7 ANDRY 38 WEEKS STEPHANIEJENNIFER A 04/03 Released w/o Limitations [facility] [place] [facility]Ob) [place] [facility]) [facility] [id number] [facility] 30 VICKI SINGH T 04/12 Released w/o Limitations [facility] [place] [place] DIRECT TO MTF FROM OTHER THAN ER OR APU [id number] [facility] R 04/13 RETURNED TO DUTY [place] [facility] [place](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) OUTPATIENT [id number] 6-8 week PP, TR Benitez 05/20 Released w/o Limitations [place](Obgy n-Child Custody Evaluator) [place](Ob-Child Custody Evaluator ) OUTPATIENT [id number] 2 Pumping JUAN LUIS Rocha 05/28 Released w/o Limitations [place](Ob-G yn Lactati on) [place]([facility] [address] [place] [address]) OUTPATIENT [id number] med board eval RAMOS MIKE 07/25 Released w/o Limitations [place]([facility] [place]) [place]([facility] [place]) TELE CONSULT [id number] Notes Entered by: PARISH ORTEGA R 01 Aug 2019 1204 ------- ------- ------- ------- -- Triage Nurse HELENA GILLIAM 07/31 [place]([address]) [place]([address]) TELE CONSULT [id number] Notes Entered by: RAMOS MIKE 07 Aug 2019 1354 ------- ------- ------- ------- -- RAMOS YORK 08/06 [place]([address]) [place]([address]) TELE CONSULT [id number] Notes Entered by: CE SALAS 10 Aug 2019 1322 ------- ------- ------- ------- -- Triage Nurse HELENA GILLIAM 08/09 [place]([address]) [place]([address]) TELE CONSULT [id number] Notes Entered by: Shawnee HEADLEY 14 Aug 2019 0943 ------- ------- ------- ------- -- Triage Nurse SYLWIA HICKEY 08/13 [place]([address]) [place]([address]) TELE CONSULT [id number] Notes Entered by: RAMOS MIKE 16 Aug 2019 1602 ------- ------- ------- ------- -- P3 submiss ion RAMOS MIKE 08/15 [place]([address]) [place]([address]) OUTPATIENT [id number] Request Control NAIF FIGUEROA 08/29 Released w/o Limitations [place]([address]) [place]([facility]) OUTPATIENT [id number] MRDP APPT ALICIA LAGUNA 08/29 Released w/o Limitations [place](MEB) [place]([facility] ([place] OUTPATIENT [id number] routine exam EDNA NOBLE Lisbet 09/12 Released w/o Limitations [place]([facility] ([place]([facility]) OUTPATIENT [id number] Notes Entered by: STIVEN SORENSEN ND 13 Nov 2019 1147 ------- ------- ------- ------- -- JULIANN MENDEZ 11/12 Released w/o Limitations [place]([facility]) [place]([facility]) OUTPATIENT [id number] NOHEMI LAURENT 11/15 Released w/o Limitations [place]([facility]) [place]([facility] [address] [place] [address]) TELE CONSULT [id number] Notes Entered by: Arlen VALDEZ 26 Dec 2019 1042 ------- ------- ------- ------- -- Triage Nurse JUANITA JC I 12/25 [place]([facility] [address] [place] [address]) [place]([facility] [address] [place] [address]) OUTPATIENT [id number] discuss with NAIF ZALDIVAR 01/02 Released w/o Limitations [place]([facility] [address] [place] [address]) [place]([facility]) OUTPATIENT [id number] Notes Entered by: Everton ALLISON 28 Jan 2020 1418 ------- ------- ------- ------- -- Termina tion Hearing Exam MAGUE ALLISON 01/27 Released w/o Limitations [place]([facility] [place]([facility] [place]) TELE CONSULT [id number] Notes Entered by: Arlen VALDEZ 01 Feb 2020 1217 ------- ------- ------- ------- -- Triage Nurse SLICK PICKARD 01/31 [place]([address]) [place] TELE CONSULT [id number] Notes Entered by: Katiuska PICKARD 04 Feb 2020 0826 ------- ------- ------- ------- -- medicat ion SLICK PICKARD 02/03 [place]([address]) [place] Outpatient Encounter [id number] 08/10 MURRAY Yancey [facility] Outpatient Encounter [id number] 09/22 [facility] Outpatient Encounter [id number] 10/20 [facility] OFFICE O/P NEW MOD 45 MIN [id number] Diagnos is: ICD-10- CM Z00.01 Encount er for general adult medical exam w abnorma l finding s
SMILEY GOMES IL L 10/20 [facility] Outpatient Encounter [id number] 10/25 [facility] Outpatient Encounter [id number] 10/31 [facility] Outpatient Encounter [id number] 11/13 [facility] VISIT LOW MDM [id number] Diagnos is: ICD-10- CM K08.89 Other specifi ed disorde rs of teeth and support ing structu res<br/ > MATTHEW BENITO 11/14 [facility] Outpatient Encounter [id number] 01/26 [facility] Outpatient Encounter [id number] 02/27 [facility] Procedures Combined list of: 1) Procedures from Department of Veterans Affairs facilities going back up to thelast 18 months, not all VA non-surgical procedures are included; 2) All procedures from the Department of Defense facilities. Procedure Procedure Type Code Date Perfomer Comments Sourc e No data available for this section [facility] THERAPEUTIC, PROPHYLACTIC, OR DIAGNOSTIC INJECTION (SPECIFY SUBSTANCE OR DRUG); SUBCUTANEOUS OR INTRAMUSCULAR 2016 [facility] RE-EVAL,ATHLETIC TRAINING ESTAB PLAN OF CARE REQ:ASSES,CUR FUNC STAT WHEN DOC CHANGE;REV PLAN OF CARE,STAND,ASSESS INSTR &/ANGELICA ASSESS,FUNC OUTCOME W UPDATE,20 MIN [id number] W THE PATIENT &/FAMILY 2016 DoD THERAPEUTIC PROCEDURE, 1 OR MORE AREAS, EACH 15 MINUTES; THERAPEUTIC EXERCISES TO DEVELOP STRENGTH AND ENDURANCE, RANGE OF MOTION AND FLEXIBILITY 2016 DoD ADENOVIRUS VACCINE, TYPE 7, LIVE, FOR ORAL USE 2016 [facility] THERAPEUTIC PROCEDURE, 1 OR MORE AREAS, EACH 15 MINUTES; GAIT TRAINING (INCLUDES STAIR CLIMBING) 2016 DoD EAR MOLD/INSERT, NOT DISPOSABLE, ANY TYPE 2016 DoD MENTAL HEALTH SERVICE PLAN DEVELOPMENT BY NON-PHYSICIAN 2020 DoD MENTAL HEALTH SERVICE PLAN DEVELOPMENT BY NON-PHYSICIAN 2019 DoD MENTAL HEALTH SERVICE PLAN DEVELOPMENT BY NON-PHYSICIAN 2019 DoD WAIVER SERVICES; NOT OTHERWISE SPECIFIED (NOS) 2019 DoD WAIVER SERVICES; NOT OTHERWISE SPECIFIED (NOS) 2019 Do[facility] WAIVER SERVICES; NOT OTHERWISE SPECIFIED (NOS) 2019 Do[facility] WAIVER SERVICES; NOT OTHERWISE SPECIFIED (NOS) 2019 Do[facility] WAIVER SERVICES; NOT OTHERWISE SPECIFIED (NOS) 2019 Do[facility] WAIVER SERVICES; NOT OTHERWISE SPECIFIED (NOS) 2019 Do[facility] WAIVER SERVICES; NOT OTHERWISE SPECIFIED (NOS) 2019 DoD PSYCHOTHERAPY, 60 MINUTES WITH PATIENT 2019 [facility] WAIVER SERVICES; NOT OTHERWISE SPECIFIED (NOS) 2019 [facility] WAIVER SERVICES; NOT OTHERWISE SPECIFIED (NOS) 2019 DoD INTERPRETATION OR EXPLANATION OF RESULTS OF PSYCHIATRIC, OTH MEDICAL EXAMS/PROCEDURES, OR OTH ACCUMULATED DATA TO FAMILY OR OTH RESPONSIBLE PERSONS,OR ADVISING THEM HOW TO ASSIST PATIENT 2019 DoD WAIVER SERVICES; NOT OTHERWISE SPECIFIED (NOS) 2019 Do[facility] WAIVER SERVICES; NOT OTHERWISE SPECIFIED (NOS) 2019 DoD FITTING OF SPECTACLES, EXCEPT FOR APHAKIA; MONOFOCAL 2019 [facility]; NOT OTHERWISE SPECIFIED (NOS) 2019 [facility] WAIVER SERVICES; NOT OTHERWISE SPECIFIED (NOS) 2019 DoD PSYCHOTHERAPY FOR CRISIS; FIRST 60 MINUTES 2019 DoD INSERTION, DRUG-DELIVERY IMPLANT (IE, BIORESORBABLE, BIODEGRADABLE, NON-BIODEGRADABLE) 2019 [facility] WA[facility] SERVICES; NOT OTHERWISE SPECIFIED (NOS) 2019 Do[facility] WAIVER SERVICES; NOT OTHERWISE SPECIFIED (NOS) 2019 [facility] WAIVER SERVICES; NOT OTHERWISE SPECIFIED (NOS) 2019 DoD PSYCHIATRIC DIAGNOSTIC EVALUATION 2019 [facility]; NOT OTHERWISE SPECIFIED (NOS) 2019 [facility] CLASSES, NON-PHYSICIAN PROVIDER, PER SESSION 2019 [facility] BRIEF COMM TECH-BASE SERV,E.G. VIRT CHK-IN,BY PHYS/OTH QUAL HCP,RPT E&M SERV,PROV TO EST PT,NOT ORIG FRM REL E/M SERV PROV W/IN PREV 7DAY NOR LEAD TO E/M SRV/PX W/IN NEXT 24HR/SOON JOHNATHAN; 5-10 MIN DISC 2019 [facility] MONITORING OF PRODUCTS OF CONCEPTION, CARDIAC RATE, VIA NATURAL OR ARTIFICIAL OPENING 2019 [facility] DELIVERY OF PRODUCTS OF CONCEPTION, EXTERNAL APPROACH 2019 [facility] REPAIR PERINEUM MUSCLE, OPEN APPROACH 2019 DoD POSTOPERATIVE FOLLOW-UP VISIT, NORMALLY INCLUDED IN THE SURGICAL PACKAGE, INDICATE THAT EVALUATION & MANAGEMENT SERVICE WAS PERFORMED DURING A POSTOPERATIVE PERIOD REASON RELATED ORIGINAL PROCEDURE 2019 [facility] VAGINAL DELIVERY ONLY (WITH OR WITHOUT EPISIOTOMY AND/OR FORCEPS); 2019 [facility] NON-STRESS TEST 2019 [facility] PHYS/OTH QUALIFIED HEALTH TUBE WINDER HAND QUALIFIED,EDUCATIO N,TRAIN,LICENSURE/ REGULATION (WHEN APPLICABLE) EDUC SER RENDERED TO PATS IN A GRP SETTING (EG,,OBESI TY,OR DIABETIC INSTRUCT) 2019 [facility] SUBSEQ CARE VISIT () [EXCLS:PATIENTS WHO ARE SEEN FOR A CONDITION UNREL TO / CARE (EG,AN UP RESPIR INFECT;PATIENTS SEEN FOR CONSULTATION ONLY,NOT FOR CONT CARE)] 2019 [facility] PHYS/OTH QUALIFIED HEALTH TUBE WINDER HAND QUALIFIED,EDUCATIO N,TRAIN,LICENSURE/ REGULATION (WHEN APPLICABLE) EDUC SER RENDERED TO PATS IN A GRP SETTING (EG,,OBESI TY,OR DIABETIC INSTRUCT) 2019 [facility] SUBSEQ CARE VISIT () [EXCLS:PATIENTS WHO ARE SEEN FOR A CONDITION UNREL TO / CARE (EG,AN UP RESPIR INFECT;PATIENTS SEEN FOR CONSULTATION ONLY,NOT FOR CONT CARE)] 2019 DoD PHYS/OTH QUALIFIED HEALTH TUBE WINDER HAND QUALIFIED,EDUCATIO N,TRAIN,LICENSURE/ REGULATION (WHEN APPLICABLE) EDUC SER RENDERED TO PATS IN A GRP SETTING (EG,,OBESI TY,OR DIABETIC INSTRUCT) 2019 [facility] NON-STRESS TEST 2018 DoD PHYS/OTH QUALIFIED HEALTH TUBE WINDER HAND QUALIFIED,EDUCATIO N,TRAIN,LICENSURE/ REGULATION (WHEN APPLICABLE) EDUC SER RENDERED TO PATS IN A GRP SETTING (EG,,OBESI TY,OR DIABETIC INSTRUCT) 2018 [facility] SUBSEQ CARE VISIT () [EXCLS:PATIENTS WHO ARE SEEN FOR A CONDITION UNREL TO / CARE (EG,AN UP RESPIR INFECT;PATIENTS SEEN FOR CONSULTATION ONLY,NOT FOR CONT CARE)] 2018 [facility] PHYS/OTH QUALIFIED HEALTH TUBE WINDER HAND QUALIFIED,EDUCATIO N,TRAIN,LICENSURE/ REGULATION (WHEN APPLICABLE) EDUC SER RENDERED TO PATS IN A GRP SETTING (EG,,OBESI TY,OR DIABETIC INSTRUCT) 2018 [facility] EAR PROTECTOR ATTENUATION MEASUREMENTS 2018 [facility] ULTRASOUND, UTERUS, REAL TIME WITH IMAGE DOCUMENTATION, AND MATERNAL EVALUATION PLUS DETAILED ANATOMIC EXAMINATION,TRANSA BDOMINAL APPROACH; SINGLE OR FIRST GESTATION 2018 [facility] SUBSEQ CARE VISIT () [EXCLS:PATIENTS WHO ARE SEEN FOR A CONDITION UNREL TO / CARE (EG,AN UP RESPIR INFECT;PATIENTS SEEN FOR CONSULTATION ONLY,NOT FOR CONT CARE)] 2018 [facility] MEDICAL NUTRITION THERAPY; GROUP (2 OR MORE INDIVIDUAL(S)), EACH 30 MINUTES 2018 DoD PHYS/OTH QUALIFIED HEALTH TUBE WINDER HAND QUALIFIED,EDUCATIO N,TRAIN,LICENSURE/ REGULATION (WHEN APPLICABLE) EDUC SER RENDERED TO PATS IN A GRP SETTING (EG,,OBESI TY,OR DIABETIC INSTRUCT) 2018 [facility] SCREENING FOR DEPRESSION PERFORMED (DEM) 2018 [facility] RE-EVAL,PHYSICAL THERAPY EST PLAN OF CARE,REQ:EXAM,REV, HX & USE,STAND TESTS &ANGELICA REQ;REV PLAN OF CARE USING STAND PAT ASSESS INSTR &/ANGELICA ASSESS FUNC OUTCOME TYP,20 MIN SPENT LITJ-OW-[id number] W PAT&/FAM 2018 [facility] THERAPEUTIC PROCEDURE(S), GROUP (2 OR MORE INDIVIDUALS) 2018 [facility] THERAPEUTIC PROCEDURE(S), GROUP (2 OR MORE INDIVIDUALS) 2018 [facility] THERAPEUTIC PROCEDURE(S), GROUP (2 OR MORE INDIVIDUALS) 2018 [facility] PHYSICAL THERAPY EVALUATION:MODERAT E COMPLEXITY,REQ:HIS T PRES PROB,1-2 PERS FACT &/COMORB,IMPACT PLAN OF CARE;CLIN DECIS MAKING OF MOD COMPLEX,TYP,30 MIN ARE SPENT IOBH-AT-OSXD W THE PATIENT &/FAMILY 2018 [facility] CHIROPRACTIC MANIPULATIVE TREATMENT (CMT); EXTRASPINAL, 1 OR MORE REGIONS 2018 DoD THERAPEUTIC PROCEDURE, 1 OR MORE AREAS, EACH 15 MINUTES; MASSAGE, INCLUDING EFFLEURAGE, PETRISSAGE AND/OR TAPOTEMENT (STROKING, COMPRESSION, PERCUSSION) 2017 DoD THERAPEUTIC PROCEDURE, 1 OR MORE AREAS, EACH 15 MINUTES; MASSAGE, INCLUDING EFFLEURAGE, PETRISSAGE AND/OR TAPOTEMENT (STROKING, COMPRESSION, PERCUSSION) 2017 DoD THERAPEUTIC PROCEDURE, 1 OR MORE AREAS, EACH 15 MINUTES; MASSAGE, INCLUDING EFFLEURAGE, PETRISSAGE AND/OR TAPOTEMENT (STROKING, COMPRESSION, PERCUSSION) 2017 DoD SELF-CARE/HOME MANAGMENT TRAIN (EG,ACT OF DAILY LIVING (ADL) &COMPENSAT TRAIN,MEAL PREPARATION,SAFETY PROCS,AND INSTRUCT IN USE OF ASST TECHNOLOGY DEV/ADPT EQUIP) DIR ONE-ON-ONE CONT,EA 15 MINUTES 2017 [facility] REMOVAL, IMPLANTABLE CONTRACEPTIVE CAPSULES 2017 DoD THERAPEUTIC PROCEDURE(S), GROUP (2 OR MORE INDIVIDUALS) 2017 DoD THERAPEUTIC PROCEDURE(S), GROUP (2 OR MORE INDIVIDUALS) 2017 [facility] URINE TEST, BY VISUAL COLOR COMPARISON METHODS 2017 [facility] AUDIOMETRIC TESTING OF GROUPS 2017 [facility] EAR PROTECTOR ATTENUATION MEASUREMENTS 2017 [facility] INSERTION, DRUG-DELIVERY IMPLANT (IE, BIORESORBABLE, BIODEGRADABLE, NON-BIODEGRADABLE) 2017 [facility] HEPATITIS A VACCINE (HEPA), ADULT DOSAGE, FOR INTRAMUSCULAR USE 2017 [facility] IMMUNIZATION ADMINISTRATION (INCLUDES PERCUTANEOUS, INTRADERMAL, SUBCUTANEOUS, OR INTRAMUSCULAR INJECTIONS); 1 VACCINE (SINGLE OR COMBINATION VACCINE/TOXOID) 2016 [facility] ADMINISTRATION OF PATIENT-FOCUSED HEALTH RISK ASSESSMENT INSTRUMENT (EG, HEALTH HAZARD APPRAISAL) WITH SCORING AND DOCUMENTATION, PER STANDARDIZED INSTRUMENT 2016 [facility] EAR MOLD/INSERT, NOT DISPOSABLE, ANY TYPE 2016 [facility] PSYCHOTHERAPY, 30 MINUTES WITH PATIENT 2016 [facility] Implantable Contraceptive Capsules Insertion 2017 DAVEY MORGAN PRE-OP DIAGNOSIS: Patient desires long-term, reversible contraception. POST-OP DIAGNOSIS: Same PROCEDURE: Nexplanon placement Performing Physician: Davey Morgan PA-C Supervising Physician: PROCEDURE: The appropriate timeout was taken and the patient's non-dominant hand was identified. She laid supine on the examination table with her non-dominant arm flexed at the elbow and externally rotated so that her wrist was parallel to the ipsilateral ear. The insertion site was selected on the medial aspect of the arm, 8 - 10 cm from medial epicondyle, and marked with a sterile marker. The procedure area was prepped with (Betadine) and draped in a sterile fashion. 3.5 mL of 2% lidocaine (with epinephrine) was injected just under the skin along the planned insertion tunnel. Anesthesia confirmed. The skin was punctured with the tip of the Nexplanon trocar needle slightly angled less than 30???. The applicator was then lowered to a horizontal position. While lifting the skin with the tip of the needle, the needle was inserted to its full length. Mild resistance was felt but no excessive force was used. The needle slid in easily. The applicator was kept in the same position with the needle inserted to its full length. The free hand was used to keep the applicator in the same position. Then the purple slider was unlocked by pushing it slightly down. The purple slider was then moved fully back until it stopped, delivering the Nexplanon capsule subcutaneously . The trocar was removed from the insertion site. Nexplanon capsule was palpated by provider and patient to assure satisfactory placement. Estimated blood loss was less than 0.5 mL. Dressing was applied to the area and anticipatory guidance, as well as standard post-procedure care, was explained. Return precautions are given. The patient tolerated the procedure well without complications. Follow-up: 4-6 weeks, at which time the placement will be checked. [facility] Hepatitis A Vaccine Adult Dosage (Intramuscular Use) Hepatitis A Vaccine Adult Dosage (Intramuscular Use) 81488 2017 SYLWIA HICKEY [facility] Immunization Administration By Injection, One Vaccine Immunization Administration By Injection, One Vaccine 24328 2017 SYLWIA HICKEY [facility] Immunization Administration By Injection, One Vaccine Immunization Administration By Injection, One Vaccine 95943 [facility] Influenza Split Virus Vaccine IM Preserv Free 0.5mL Dosage Quadrivalent Influenza Split Virus Vaccine IM Preserv Free 0.5mL Dosage Quadrivalent 32624 2016 [facility]HELENA [facility] Preventive Medicine Administration Of Health Risk Questionnaire Patient-Focused Preventive Medicine Administration Of Health Risk Questionnaire Patient-Focused 66108 2016 ERIKA SMITH Ear mold/insert, not disposable, any type 2016 ERIKA OLSON Clinical Social Work Individual Outpatient Counseling 30 Minutes Clinical Social Work Individual Outpatient Counseling 30 Minutes 10903 2016 KAYLIN, RYLEY N Rao Injection, methocarbamol, up to 10 mL 2016 TYRON BANERJEE 500 mg IM Rao Injection, ketorolac tromethamine, per 15 mg 2016 TYRON BANERJEE 60 mg IM Rao A isted Exercises For ROM Assisted Exercises For ROM 28062 2016 ANNITA LEÓN Athletic Training Re-evaluation Athletic Training Re-evaluation 75441 2016 ANNITA LEÓN Wound Care Debridement Non-Selective Wound Care Debridement Non-Selective 09579 2016 ANNITA LEÓN A isted Exercises For ROM Assisted Exercises For ROM 45461 2016 ANNITA LEÓN Athletic Training Evaluation Moderate Complexity Athletic Training Evaluation Moderate Complexity 07391 2016 ANNITA LEÓN Vaccines Adenovirus Type 7 Live, For Oral Use Vaccines Adenovirus Type 7 Live, For Oral Use 97500 2016 [place] GRIMM Influenza Split Virus Vaccine IM Preserv Free 0.5mL Dosage Trivalent Influenza Split Virus Vaccine IM Preserv Free 0.5mL Dosage Trivalent 96215 2016 [place] GR[facility] Hep A Vac Ped/Adol Dosage (Intramusc Use) 2 Dose Schedule Hep A Vac Ped/Adol Dosage (Intramusc Use) 2 Dose Schedule 46358 2016 [place] [facility] Immunization Admin By Intranasal / Oral Route One Vaccine Immunization Admin By Intranasal / Oral Route One Vaccine 92307 2016 [place] [facility] Vaccines Adenovirus Type 4 Live, For Oral Use Vaccines Adenovirus Type 4 Live, For Oral Use 271272016 [place] [facility] Meningococcal Conjugate Vaccine Quadrivalent Serogroups A, C, Y, W-135 2016 [place] [facility] Vaccines Viral Measles, Mumps and Rubella, Live Vaccines Viral Measles, Mumps and Rubella, Live [id number] [facility] Tdap Vaccine Tdap Vaccine 024952016 [place] [facility] Immunization Administration By Injection, Each Additional Vaccine Immunization Administration By Injection, Each Additional Vaccine 41567 2016 [place] [facility] Vaccines Viral Polio, Inactivated Vaccines Viral Polio, Inactivated 06502 2016 [facility] Immunization Administration By Injection, One Vaccine Immunization Administration By Injection, One Vaccine 56366 2016 [place] [facility] Vaccines Viral Measles, Mumps and Rubella, Live Vaccines Viral Measles, Mumps and Rubella, Live 544272016 TEMITOPE HAWLEY Vaccines Adenovirus Type 4 Live, For Oral Use Vaccines Adenovirus Type 4 Live, For Oral Use 494122016 TEMITOPE HAWLEY Vaccines Adenovirus Type 7 Live, For Oral Use Vaccines Adenovirus Type 7 Live, For Oral Use 21827 2016 TEMITOPE HAWLEY Tdap Vaccine Tdap Vaccine 27237 2016 TEMITOPE HAWLEY Influenza Split Virus Vaccine IM Preserv Free 0.5mL Dosage Trivalent Influenza Split Virus Vaccine IM Preserv Free 0.5mL Dosage Trivalent 23682 2016 MARLEEN [facility] Immunization Admin Intranasal / Oral Each Additional Vaccine Immunization Admin Intranasal / Oral Each Additional Vaccine 45569 2016 MARLEEN [facility] Immunization Administration By Injection, Each Additional Vaccine Immunization Administration By Injection, Each Additional Vaccine 94263 2016 MARLEEN [facility] Hep A Vac Ped/Adol Dosage (Intramusc Use) 2 Dose Schedule Hep A Vac Ped/Adol Dosage (Intramusc Use) 2 Dose Schedule 33338 2016 MARLEEN [facility] Vaccines Viral Polio, Inactivated Vaccines Viral Polio, Inactivated 24154 2016 MARLEEN [facility] Meningococcal Conjugate Vaccine Quadrivalent Serogroups A, C, Y, W-135 2016 MARLEEN [facility] Immunization Administration By Injection, One Vaccine Immunization Administration By Injection, One Vaccine 01191 2016 MALREEN [facility] Physical Therapy Gait Training Physical Therapy Gait Training 98065 2016 ANNITA LEÓN [facility] OB Services Antepartum Care Only Subsequent Single Visit OB Services Antepartum Care Only Subsequent Single Visit 0502F 2018 VICKI SINGH [facility] Physician Supervised Group Educational Services Physician Supervised Group Educational Services 71794 2018 VICKI SINGH [facility] OB Services Antepartum Care Only Subsequent Single Visit OB Services Antepartum Care Only Subsequent Single Visit 0502F 2018 ZIA LUDWIG [facility] Physician Supervised Group Educational Services Physician Supervised Group Educational Services 92671 2018 ZIA LUDWIG [facility] Preventive Medicine Screening For Depre ion Preventive Medicine Screening For Depression 3725F 2018 VICKI SINGH [facility] Ultrasound Abdominal Limited Ultrasound Abdominal Limited 88656 2018 VICKI SINGH [facility] OB Services Antepartum Care Only First Visit, With Report OB Services Antepartum Care Only First Visit, With Report 0500F 2018 VICKI SINGH [facility] Physical Therapy Service Re-Evaluation Physical Therapy Service Re-Evaluation 97040 05/31/ 2019 GIACOMO MERINO [facility] Physical Medicine - Group Physical Therapy Se ion Physical Medicine - Group Physical Therapy Session 56838 2018 CYNDI ADAMS Christine Rao Physical Medicine - Group Physical Therapy Se ion Physical Medicine - Group Physical Therapy Session 05259 2018 CYNDI ADAMS Physical Medicine - Group Physical Therapy Se ion Physical Medicine - Group Physical Therapy Session 96635 2018 CYNDI ADAMS Physical Therapy Service Evaluation Moderate Complexity Physical Therapy Service Evaluation Moderate Complexity 07609 2018 GIACOMO MERINO [facility] Chiropractic Manip Treatmt (CMT) Extraspinal One Or More Reg Chiropractic Manip Treatmt (CMT) Extraspinal One Or More Reg 50177 2018 MALA SWAN [facility] Physical Therapy Al age Physical Therapy Massage 52965 2018 MALA SWAN LumboPelvic Muscles and Fascia 12 min DoD Chiropractic Manip Treatmt (CMT) Spinal [facility] Chiropractic Manip Treatmt (CMT) Spinal [facility] 98197 2018 MALA SWAN [facility] Physical Therapy Al age Physical Therapy Massage 64287 2017 AMLA SWAN LumboPelvic Muscles and Fascia 12 min DoD Chiropractic Manip Treatmt (CMT) [facility] Chiropractic Manip Treatmt (CMT) Spinal [place] 47900 2017 MALA SWAN [facility] Physical Therapy Ma age Physical Therapy Massage 06867 2017 MALA SWAN LumboPelvic Muscles and Fascia 12 min DoD Chiropractic Manip Treatmt (CMT) [facility] Chiropractic Manip Treatmt (CMT) Spinal [facility] [place] 19630 2017 MALA SWAN [facility] Physical Therapy Ma age Physical Therapy Massage 54483 2017 MALA SWAN LumboPelvic Muscles and Fascia 12 min DoD Chiropractic Manip Treatmt (CMT) [facility] Chiropractic Manip Treatmt (CMT) Spinal [facility] [place] 16983 2017 MALA SWAN [facility] Phys Therapy Education Self Care Training - Per 15 Minutes Phys Therapy Education Self Care Training - Per 15 Minutes 59423 2017 MALA SWAN Demonstrated and Instructed low back strengthening exercises - 15 minutes [facility] Physical Therapy Neuromuscular Re-education Physical Therapy Neuromuscular Re-education 03488 2017 MALA SWAN 12 min Neuromuscular Rehabilitation : Thoraco-Lumbar Cross Crawl exercises [facility] Chiropractic Manip Treatmt (CMT) [facility] Chiropractic Manip Treatmt (CMT) Spinal [facility] [place] 76514 2017 MALA SWAN [facility] Implantable Contraceptive Capsules Removal Implantable Contraceptive Capsules Removal 68044 2017 NAIF BLAS Pt presents for Nexplanon Removal. Reviewed Risks, Benefits, Side Effects and alternatives. Pt desires to proceed. Time out and consent performed. Area was marked along the inner portion of the left upper arm using skin marker. Approx 5cc of Lidocaine 1% with epinephrine was injected for local anesthesia. Area was cleaned using aseptic technique with iodine. Approx 1cm incision was made at distal end of Nexplanon. Nexplanon was successfully removed. Site was closed using 1x simple interrupted 4-0 Vicryl. Area was cleaned and dressed. Wound care instructions were given. Patient tolerated procedure well and all questions were answered. [facility] Physical Medicine - Group Physical Therapy ion Physical Medicine - Group Physical Therapy Session 39319 2017 CYNDI ADAMS [facility] Physical Medicine - Group Physical Therapy ion Physical Medicine - Group Physical Therapy Session 15395 2017 CYNDI ADAMS Audiometry Group Testing Audiometry Group Testing 14281 2017 ZOE SONG [facility] Audiometry Group Testing Audiometry Group Testing 31964 2017 ZOE SONG Ear Protector Attenuation Measurements Ear Protector Attenuation Measurements 85466 2017 ZOE SONG Medical Nutrition Therapy Group (2 or More Individuals) Each 30 Minutes Medical Nutrition Therapy Group (2 or More Individuals) Each 30 Minutes 01214 JOVANA REESE V [id number] [facility] Transabd Ultrasound W/ Exam Single Or First Gestation Transabd Ultrasound W/ Exam Single Or First Gestation 90344 DELORES ARMSTRONG [facility] Audiometry Group Testing Audiometry Group Testing 71424 ZOE SONG Ear Protector Attenuation Measurements Ear Protector Attenuation Measurements 50844 ZOE SONG OB Services Antepartum Care Only Subsequent Single Visit OB Services Antepartum Care Only Subsequent Single Visit 0502F LUIS SINGHHMA T [facility] Physician Supervised Group Educational Services Physician Supervised Group Educational Services 29563 SAMANTHA, VICKI T [facility] cla es, non-physician provider, per se JUAN LUIS Guerrero [facility] Waiver services; not otherwise specified (NOS) TR RIVERA [facility] Obstetrical Services Care Visit Obstetrical Services Care Visit 0503F TR RIVERA [facility] Psychiatric Diagnostic Evaluation Psychiatric Diagnostic Evaluation 73559 MANJU LOVELL [facility] Psychotherapy Individual Approximately 60 Minutes Psychotherapy Individual Approximately 60 Minutes 94306 RENETTA PEREIRA [facility] Psychotherapy Individual Approximately 30 Minutes Psychotherapy Individual Approximately 30 Minutes 14784 RENETTA PEREIRA [facility] Implantable Contraceptive Capsules Insertion NAIF FIGUEROA [facility] Psychotherapy For Crisis Intervention First 60 Minutes Psychotherapy For Crisis Intervention First 60 Minutes 68366 JESSY PAIZ [facility] Mental health service plan development by non-physician BRITT MELARA [facility] Ophthalmological New Patient Start Comprehensive Care Ophthalmological New Patient Start Comprehensive Care 69566 EDNA NOBLE [facility] Determination Of Refractive State Determination Of Refractive State 25126 EDNA NOBLE [facility] Spectacles Services Fitting Monofocal Except For Aphakia Spectacles Services Fitting Monofocal Except For Aphakia 07725 EDNA NOBLE [facility] Psychotherapy Group Interactive Psychotherapy Group Interactive 30906 DIVYA SONG [facility] Social Work Family Medial Psychother Without Patient Guardians Social Work Family Medial Psychother Without Patient Guardians 83141 BRITT MELARA [facility] Clinical Social Work Individual Outpatient Counseling 60 Minutes Clinical Social Work Individual Outpatient Counseling 60 Minutes 73595 DIVYA SONG [facility] Clinical Social Work Individual Outpatient Counseling 30 Minutes Clinical Social Work Individual Outpatient Counseling 30 Minutes 25838 DIVYA SONG [facility] Social History Combined list of available smoking, tobacco, and other social history from [facility] and [facility] facilities. Social History Type Response Date Comment Sourc e Tobacco smoking status NHIS VA-TOBACCO NEVER USED 10/21/19 [place] History of tobacco use VA-TOBACCO NEVER USED 02/20/2020 JAYME [place] This section is an empty social history section. [facility] Assessment and Plan Combined list of future care activities from Department of Defense and Veterans Affairs facilities (e.g., assessment and plan notes, appointments, orders, and referrals). Additional future care activities may be listed in the Plan of Care section. Result Assessment and Plan Date Source Assessment and Plan No data available for this section 03/27/2024 Ambulatory Pharmacy Functional Status Combined list of recent functional and cognitive assessments recorded at [facility] Functional [place] Measurement (FIM) Scale: 1 = Total Assistance (Subject = 0% +), 2 = Maximal Assistance (Subject = 25% +), 3 = Moderate Assistance (Subject = 50% +), 4 = Minimal Assistance (Subject = 75% +), 5 = Supervision, 6 = Modified [place] (Device), 7 = Complete [place] (Timely, Safely). Assessment Date/Time Source Assessment Type Assessment Skill Assessment Score Assessment Details No data available for this section
--- OUTSIDE RECORDS SUMMARY | 2024-03-27 12:17 | XMS_ITS | Patient Health Summary ---
Author Organization [facility] Quibly Address [address] [place] [address] Care Team Providers Care Lodging Facilities Attendant Name Role Phone Rip Loli MCDANIEL Primary Care Provider [phone] Loli Erwin Unavailable [phone] Note from [facility],non-owned Affiliates and Associated Physician Practices is amultiple site organization consisting of ambulatory clinics and hospital sitesin [place], [place], [place] and [place]. This disclosure is being madepursuant to the Care Everywhere program and may not contain all information available regarding this patient. Last updated 17.[facility] Allergies No known active allergies Medications * Be aware that medications may not be up to date on this document. Alwaysverify current medications with the patient. * Estarylla 0.25-35 MG-MCG tablet Take 1 (one) tablet by mouth once daily Social History Tobacco Use Types Packs/Day Years Used Date Smoking Tobacco: Never Assessed Sex and Gender Information Value Date Recorded Sex Assigned at Not on file Gender Identity Not on file Sexual Orientation Not on file Last Filed Vital Signs Vital Sign Reading Time Taken Comments Blood Pressure 104/62 02/06/2024 1:49 PM STUDENT EDUCATION SPECIALIST Pulse 82 02/06/2024 1:49 PM STUDENT EDUCATION SPECIALIST Temperature 36.8 ??C (98.2 ??F) 02/06/2024 1:49 PM CS T Respiratory Rate 16 02/06/2024 1:49 PM STUDENT EDUCATION SPECIALIST Oxygen Saturation 97% 02/06/2024 1:49 PM STUDENT EDUCATION SPECIALIST Inhaled Oxygen Concentration - - Weight 67.1 kg (148 lb) 02/06/2024 1:49 PM STUDENT EDUCATION SPECIALIST Height 154.9 cm (5' 1 ) 02/06/2024 1:49 PM STUDENT EDUCATION SPECIALIST Body Mass Index 27.96 02/06/2024 1:49 PM STUDENT EDUCATION SPECIALIST Procedures * XR SI JOINTS 3VW OR MORE(Performed 02/06/2024) Performed for Low back pain, unspecified back pain laterality, unspecified chronicity, unspecified whether sciatica present * INFLAMMATORY BOWEL DISEASE PANEL(Performed 02/06/2024) Performed for Rectal bleeding * CEDRICK PANEL COMPREHENSIVE(Performed 02/06/2024) Performed for Positive double stranded DNA antibody test * CYCLIC CITRULLINATED PEPTIDE(CCP) AB IGG(Performed 02/06/2024) Performed for Positive double stranded DNA antibody test * VITAMIN B12(Performed 02/06/2024) Performed for Fatigue, unspecified type * VITAMIN D 25-HYDROXY(Performed 02/06/2024) Performed for Fatigue, unspecified type * COMPLEMENT C3 C4 PANEL(Performed 02/06/2024) Performed for Positive double stranded DNA antibody test * DNA ANTIBODY DS CRITHIDIA IFA(Performed 02/06/2024) Performed for Positive double stranded DNA antibody test * CEDRICK BLOOD SCREEN W/REFLEX TITER(Performed 02/06/2024) Performed for Positive double stranded DNA antibody test * C-REACTIVE PROTEIN(Performed 02/06/2024) Performed for Positive double stranded DNA antibody test * ERYTHROCYTE SEDIMENTATION RATE(Performed 02/06/2024) Performed for Positive double stranded DNA antibody test * COMPREHENSIVE METABOLIC PANEL(Performed 02/06/2024) Performed for Positive double stranded DNA antibody test * CBC W AUTO DIFFERENTIAL(Performed 02/06/2024) Performed for Positive double stranded DNA antibody test Results * XR SI Joints 3Vw or More (02/06/2024 3:32 PM STUDENT EDUCATION SPECIALIST) Anatomical Region Laterality Modality Pelvis, Lower Extremity [facility] 02/07/2024 9:36 AM STUDENT EDUCATION SPECIALIST Impressions 02/07/2024 9:36 AM STUDENT EDUCATION SPECIALIST IMPRESSION: Radiographically normal sacroiliac joints. > Interpreting Provider: Larissa Salamanca MD on 02/07/2024 9:36 AM Narrative 02/07/2024 9:36 AM STUDENT EDUCATION SPECIALIST PROCEDURE: ??XR SI JOINTS 3VW OR MORE [...] INFLAMMATORY BOWEL DISEASE PANEL (02/06/2024 3:08 PM STUDENT EDUCATION SPECIALIST) Saccharomyces cerevisiae Antibody IgG 22.2 0.0 - [...] BLOOD SPECIMEN / Unknown 02/06/2024 3:08 PM STUDENT EDUCATION SPECIALIST 02/06/2024 Narrative [facility] ACCOUNT BILL - 02/09/2024 3:08 PM STUDENT EDUCATION SPECIALIST Performed at: ??01 - [facility] ??[id number] Armoring Machine Operator: Sarah Phillips MD, Phone: ??[phone] Performed at: ??02 - [facility] [address] [place] [address] ??[id number] Armoring Machine Operator: Romel Gorman PhD, Phone: ??[phone] Nithya Pierce MD LAB - CHEMISTRY CHASE WHEELER [facility] ACCOUNT BILL [address] [place] [address] * (ABNORMAL) CEDRICK PANEL COMPREHENSIVE (02/06/2024 3:06 PM STUDENT EDUCATION SPECIALIST) Anti-dsDNA Quantitative 10(H) 0 - 9 IU/mL [facility] ACCOUNT BILL Comment: ? Negative ?<5 ? Equivocal ??5 - 9 ? Positive ?>9 DEVELOPER PROGRAMMER ANALYST Antibody <0.2 0.0 - 0.9 AI [facility] [...] Sm (anti-Cuello) ?SLE ?15 - 30% ?--------- DEVELOPER PROGRAMMER ANALYST ?Mixed Connective Tissue ? Disease ? 95% [...] BLOOD SPECIMEN / Unknown 02/06/2024 3:06 PM STUDENT EDUCATION SPECIALIST 02/06/2024 Narrative [facility] ACCOUNT BILL - 02/07/2024 1:07 PM STUDENT EDUCATION SPECIALIST Performed at: ??01 - [facility] [address], [place], [place] ??[id number] Armoring Machine Operator: Romel Gorman PhD, Phone: ??[phone] Nithya Pierce MD LAB - SEROLOGY ORDER SARAH Performing Organization Address City/[facility]/ZIP Co de Phone Number [facility] ACCOUNT BILL [address] [place] [address] * (ABNORMAL) CYCLIC CITRULLINATED PEPTIDE(CCP) AB IGG (02/06/2024 3:06 PM STUDENT EDUCATION SPECIALIST) CCP Antibodies IgG/IgA 45(H) <20 Units [facility] ACCOUNT BILL Comment: ?Negative: <20 ? Weak Positive: 20-39 ?Moderate Positive: 40-59 ??Strong Positive: >59 Blood BLOOD SPECIMEN / Unknown 02/06/2024 3:06 PM STUDENT EDUCATION SPECIALIST 02/06/2024 Narrative [facility] ACCOUNT BILL - 02/10/2024 6:10 AM STUDENT EDUCATION SPECIALIST Performed at: ??01 - [facility] [address] [place] [address] ??[id number] Armoring Machine Operator: Bennie Chavez MD, Phone: ??[phone] Nithya Pierce MD LAB - CHEMISTRY ORDE RABLES Performing Organization Address City/[facility] Co de Phone Number [facility] ACCOUNT BILL [address] [place] [address] * DNA ANTIBODY DS CRITHIDIA IFA (02/06/2024 3:05 PM STUDENT EDUCATION SPECIALIST) dsDNA Antibody Crithidia IFA Negative Negative [facility] ACCOUNT BILL Blood BLOOD SPECIMEN / Unknown 02/06/2024 3:05 PM STUDENT EDUCATION SPECIALIST 02/06/2024 Narrative [facility] ACCOUNT BILL - 02/08/2024 1:08 PM STUDENT EDUCATION SPECIALIST Performed at: ??01 - [facility] [place] [id number] [place], [place] ??[id number] Armoring Machine Operator: Romel Gorman PhD, Phone: ??[phone] Nithya Pierce MD LAB - SEROLOGY ORDER SARAH Performing Organization Address City/[facility]/ZIP Co de Phone Number [facility] ACCOUNT BILL [address] [place] [address] * C-REACTIVE PROTEIN (02/06/2024 3:05 PM STUDENT EDUCATION SPECIALIST) Pathologist [facility] C-Reactive Protein 0.50 <=0.50 mg/dL [facility] ACCOUNT BILL Blood BLOOD SPECIMEN / Unknown 02/06/2024 3:05 PM STUDENT EDUCATION SPECIALIST 02/06/2024 Narrative [facility] ACCOUNT BILL - 02/06/2024 9:06 PM STUDENT EDUCATION SPECIALIST Performed at: ??01 - [address] ??[id number] Armoring Machine Operator: Mendoza Ho MD, Phone: ??[phone] Nithya Pierce MD LAB - CHEMISTRY CHASE WHEELER Performing Organization Address [facility] Co de Phone Number [facility] ACCOUNT BILL [address] [place] [address] * CEDRICK BLOOD SCREEN W/REFLEX TITER (02/06/2024 3:05 PM STUDENT EDUCATION SPECIALIST) [facility] CEDRICK Negative Negative [facility] ACCOUNT BILL Comment: Methodology: Indirect Immunofluorescence Assay (IFA) utilanishai ng Hep-2-Gamma cells. Blood BLOOD SPECIMEN / Unknown 02/06/2024 3:05 PM STUDENT EDUCATION SPECIALIST 02/06/2024 Narrative [facility] ACCOUNT BILL - 02/07/2024 3:08 PM STUDENT EDUCATION SPECIALIST Performed at: ??01 - [address] ??[id number] Armoring Machine Operator: Mendoza Ho MD, Phone: ??[phone] Nithya Pierce MD LAB - CHEMISTRY CHASE WHEELER [facility] ACCOUNT BILL [address] [place] [address] * VITAMIN D 25-HYDROXY (02/06/2024 3:05 PM STUDENT EDUCATION SPECIALIST) Pathologist [facility] Vitamin D, 25 Hydroxy 40.5 30 - 80 ng/mL [facility] ACCOUNT BILL Comment: Vitamin D Status: ?Deficiency ? <20 ? ng/mL ?Insufficiency ?? 20-30 ??ng/mL ?Sufficiency ? 30-100 ng/mL ?Toxicity ? >100 ?ng/mL Blood BLOOD SPECIMEN / Unknown 02/06/2024 3:05 PM STUDENT EDUCATION SPECIALIST 02/06/2024 Narrative [facility] ACCOUNT BILL - 02/06/2024 11:06 PM STUDENT EDUCATION SPECIALIST Performed at: ??01 - [address] ??[id number] Armoring Machine Operator: Mendoza Ho MD, Phone: ??[phone] Nithya Pierce MD LAB - CHEMISTRY ORDE RABSARA Performing Organization Address [facility] de Phone Number [facility] ACCOUNT BILL [address] [place] [address] * ERYTHROCYTE SEDIMENTATION RATE (02/06/2024 3:05 PM STUDENT EDUCATION SPECIALIST) Erythrocyte Sedimentation Rate Westergren 1 0 - 20 MM/HR [facility] ACCOUNT BILL Blood BLOOD SPECIMEN / Unknown 02/06/2024 3:05 PM STUDENT EDUCATION SPECIALIST 02/06/2024 Narrative [facility] ACCOUNT BILL - 02/06/2024 9:06 PM STUDENT EDUCATION SPECIALIST Performed at: ??01 - [address] ??[id number] Armoring Machine Operator: Mendoza Ho MD, Phone: ??[phone] Nithya Pierce MD LAB - HEMATOLOGY ORD ERABLES Performing Organization Address [facility] de Phone Number [facility] ACCOUNT BILL [address] [place] [address] * CBC WITH DIFFERENTIAL (02/06/2024 3:05 PM STUDENT EDUCATION SPECIALIST) WBC 7.2 4.0 - 10.7 x10E9/L [facility] [...] BLOOD SPECIMEN / Unknown 02/06/2024 3:05 PM STUDENT EDUCATION SPECIALIST 02/06/2024 Narrative [facility] ACCOUNT BILL - 02/06/2024 9:06 PM STUDENT EDUCATION SPECIALIST Performed at: ?? [address] ??[id number] Armoring Machine Operator: Mendoza Ho MD, Phone: ??[phone] Nithya Pierce MD LAB - HEMATOLOGY ORD ERABLES [facility] ACCOUNT BILL [address] [place] [address] * COMPREHENSIVE METABOLIC PANEL (02/06/2024 3:05 PM STUDENT EDUCATION SPECIALIST) Pathologist [facility] Glucose 85 70 - 99 mg/dL [facility] [...] BLOOD SPECIMEN / Unknown 02/06/2024 3:05 PM STUDENT EDUCATION SPECIALIST 02/06/2024 Narrative [facility] ACCOUNT BILL - 02/06/2024 9:06 PM STUDENT EDUCATION SPECIALIST Performed at: ?? [address] ??[id number] Armoring Machine Operator: Mendoza Ho MD, Phone: ??[phone] Nithya Pierce MD LAB - CHEMISTRY CHASE WHEELER [facility] ACCOUNT BILL [address] [place] [address] * VITAMIN B12 (02/06/2024 3:05 PM STUDENT EDUCATION SPECIALIST) Pathologist [facility] Vitamin B12 275 213 - 816 pg/mL [facility] ACCOUNT BILL Blood BLOOD SPECIMEN / Unknown 02/06/2024 3:05 PM STUDENT EDUCATION SPECIALIST 02/06/2024 Narrative [facility] ACCOUNT BILL - 02/06/2024 11:06 PM STUDENT EDUCATION SPECIALIST Performed at: ??01 - [facility] [address] [place], [place] ??[id number] Armoring Machine Operator: Mendoza Ho MD, Phone: ??[phone] Nithya Pierce MD LAB - CHEMISTRY CHASE WHEELER [facility] ACCOUNT BILL [address] [place] [address] * COMPLEMENT C3 C4 PANEL (02/06/2024 3:05 PM STUDENT EDUCATION SPECIALIST) Pathologist [facility] Complement C3 136 82 - 167 mg/dL [facility] ACCOUNT BILL Complement C4 23 12 - 38 mg/dL [facility] ACCOUNT BILL Blood BLOOD SPECIMEN / Unknown 02/06/2024 3:05 PM STUDENT EDUCATION SPECIALIST 02/06/2024 Narrative [facility] ACCOUNT BILL - 02/07/2024 1:07 PM STUDENT EDUCATION SPECIALIST Performed at: ??01 - [facility] [address] [place], [place] ??[id number] Armoring Machine Operator: Romel Gorman PhD, Phone: ??[phone] Nithya Pierce MD LAB - CHEMISTRY CHASE WHEELER [facility] ACCOUNT BILL [address] [place] [address] Care Teams Lodging Facilities Attendant Relationship Specialty Start Date End Date Loli Erwin APRN-SAFETY [employer] [address] [place] [address] PCP - General Nurse Practitioner Family 02/09/24 Loli Erwin APRN-SAFETY [employer] [address] [place] [address] Nurse Practitioner Family 02/09/24
--- NOTE | 2024-03-27 12:31 | ED_ITS ---
HPI - URI/Sore Throat General Chief Complaint: Upper Respiratory Infection Stated Complaint: throat Time Seen by Provider: 03/27/24 12:31 History of Present Illness HPI Narrative: 28 y/o female presented for c/o sore throat and canker sores x3 days. Endorses the canker sores started after she fell last week. Denies any other associated symptoms. Not taking anything for symptoms. Related Data Home Medications ?Medication ?Instructions ?Recorded ?Confirmed ?Last Taken ?Type norgestimate 0.25 mg-ethinyl 1 tablet PO DAILY 10/18/22 04/06/23 Unknown History estradiol 35 mcg tablet (Estarylla) Allergies Allergy/AdvReac Type Severity Reaction Status Date / Time No Known Allergies Allergy Verified 03/27/24 12:30 Review of Systems Review of Systems: Per HPI [facility] Past Medical History Medical History Strep throat Surgical History Surgical History Hx of tonsillectomy Social History Social History Smoking status: Never smoker Alcohol intake: never Substance use: never Occupation/Education: occupation Exam Narrative: GENERAL: well-appearing, no acute distress. EYES: conjunctivae clear ENT: Mucous membranes moist. left upper inner gumline with aphthous ulcer noted. TM pearly burton with normal light reflex bilaterally; no tragal tenderness. Oropharynx erythematous without lesions. Tonsils enlarged and without exudate. No drooling, no hoarseness, no trismus, uvula midline. No tripod positioning, hot potato voice, or soft palate swelling. NECK: Supple. No lymphadenopathy CHEST: Clear to auscultation, breath sounds equal. No respiratory distress, speaks in full sentences. HEART: Regular rate and rhythm. No murmur heard. SKIN: Warm, dry, no rash. NEURO: Alert and oriented x3. Course Course Emergency Course: Patient is aware of diagnosis, understands and agrees to treatment plan. Anticipatory guidance given. Patient agrees to follow-up as directed and is aware of reasons to seek care at the emergency department. Portions of this record may have been created with voice recognition software Level of Care: Express Care Visit Vital Signs Vital signs: Vital Signs Temperature 97.8 F 03/27/24 12:16 Pulse Rate 82 03/27/24 12:16 Respiratory Rate 20 03/27/24 12:16 Blood Pressure 112/58 L 03/27/24 12:16 Pulse Oximetry 100 03/27/24 12:16 Oxygen Delivery Room Air 03/27/24 12:16 Temperature 97.8 F 03/27/24 12:16 Pulse Rate 82 03/27/24 12:16 Respiratory Rate 20 03/27/24 12:16 Blood Pressure 112/58 L 03/27/24 12:16 Pulse Oximetry 100 03/27/24 12:16 Oxygen Delivery Room Air 03/27/24 12:16 MDM - URI/Sore Throat MDM Narrative Medical decision making narrative: negative strep result reviewed with pt. Advise supportive treatments. Patient is appropriate for outpatient treatment and follow-up. Differential Diagnosis Differential diagnosis: Likely upper respiratory infection, viral infection and pharyngitis Discharge Plan Discharge Clinical Impression: Aphthous ulcer Patient Disposition: Home, Self-Care Condition: Stable Instructions: Antibiotic Form, Pharyngitis (ED) Additional Instructions: Rapid strep swab was negative today You will be notified in a few days if the culture comes back positive for strep, and appropriate antibiotics will be called in at that time. if symptoms are due to a viral illness, it is not treated with antibiotics. Viral symptoms can be present for up to 10-14 days. Recommendations: Tylenol every 8 hours as needed for pain/fever Avoid foods that irritate your mouth. These may include nuts, chips, pretzels, certain spices, salty foods and acidic fruits, such as pineapple, grapefruit and oranges. Regular brushing after meals and flossing once a day can keep your mouth clean and free of foods that might trigger a sore. Use a soft brush to help prevent irritation to delicate mouth tissues, and avoid toothpastes and mouth rinses that contain sodium lauryl sulfate Soft foods, cool liquids, warm tea. Gargle with warm saltwater twice a day. Chloraseptic spray and throat lozenges. Rest and stay hydrated. Consult your doctor if you experience: ? Unusually large canker sores ? Recurring sores, with new ones developing before old ones heal, or frequent outbreaks ? Persistent sores, lasting two weeks or more ? Sores that extend into the lips themselves ? Pain that you can't control with self-care measures ? Extreme difficulty eating or drinking ? High fever along with canker sores --Follow up with your PCP --Go to the ER immediately if you cannot swallow your saliva, trouble breathing/wheezing, throat swelling, pain is persistent and severe Patient Language: Divehi Prescriptions: New lidocaine HCl [Lidocaine Viscous] 2 % solution 1 applic mucous membrane TID PRN (Reason: pain) Qty: 100 0RF Rx Instructions: apply with cotton swab to site of pain No Action norgestimate-ethinyl estradiol [Estarylla] 0.25-35 mg-mcg tablet 1 tablet PO DAILY Follow-up/Referrals: Rip,Loli José APN [Primary Care Provider] - Time of Disposition: 12:38
[2024-03-27 12:34] LABS: EDSTREPNEGPOS1 Negative (Negative)
== END 2024-03-27 12:38 | disposition home or self-care (01) ==
PROVIDERS: Emergency Provider Nurse Practitioner Family; PCP Nurse Practitioner Family
DX: K12.0 Recurrent oral aphthae (principal)
CPT/HCPCS: 87081; 87880; 99213; G0463